=== PATIENT | male | born 1950 | race Caucasian/White ===

== ENCOUNTER 2017-01-04 10:01 | Observation (INO) ==
[2017-01-04] MEDS ORDERED: Furosemide 40 MG/4 ML VIAL IVP ONE (10:45)
[2017-01-04] MEDS ORDERED: Ipratropium/Albuterol Neb 3 ML IH ONE (10:45)
[2017-01-04] MEDS ORDERED: methylPREDNISolone 125 MG/2 ML VIAL IVP ONE (10:45)
--- NOTE | 2017-01-04 10:47 | Emergency Department Note ---
Disposition Clinical Impression: Acute on chronic diastolic (congestive) heart failure Disposition: Still a Patient Condition: Serious Referrals: Livia Quiñonez [Primary Care Provider] - Forms: Work/School Release, ED Satisfaction Letter Time of Disposition: 11:15 SOB HPI - General Chief Complaint: ED General Medical Stated Complaint: HTN, sent by pcp Time Seen by Provider: 01/04/17 10:35 Source: patient Mode of arrival: ambulatory Limitations: no limitations Nursing Notes Reviewed: Yes Vital Signs Reviewed: Yes - History of Present Illness Patient presents to the emergency department with increased difficulty breathing over the last several days states that he is an 18 pound weight gain in the last month. He has a history of congestive heart failure he does have oxygen at home that he uses most of the time however in the last 6 weeks since oxygen levels have improved and so therefore is 90 units to use it as much. He states that previously he had an 80 pound weight gain over a month. This is back in June of this past year. States that at this time he is not having any chest pain but he does have dyspnea with it exertion. He does feel like his ankles are more swollen than they usually are. He also has had some episodes of hypertension. He was seen by his family physician this morning who sent him to the emergency room for further evaluation. Currently is in a sinus rhythm with no chest pain the symptoms have been ongoing progressively worse for the last 4-5 days. He normally was taking 40 mg of Lasix twice a day however on the round about 2 weeks ago they increased his Lasix to 80 mg twice a day and he still had the 18 pound weight gain even after that in addition of the Lasix. Pt Subjective Complaint: shortness of breath, cough Onset (ago): week(s) (2) Severity: moderate Consistency/Duration: gradually worsening Improves with: oxygen, upright position Worsens with: lying flat, exertion Known history of: COPD, congestive heart failure Associated symptoms: Reports: orthopnea, lower extremity pain Treatment prior to arrival: diuretics Cough present: Yes Cough Description: Involuntary Cough Frequency: Intermittent Sputum production: No Sputum Amount: Small Sputum Color: Clear - Related Data Home oxygen amount: 2 liters Home Medications Medication Instructions Recorded Confirmed Albuterol Sulfate [Albuterol 2 puff IH Q6HR PRN 04/18/16 04/18/16 Inhaler] Aspirin Enteric Coated [Aspirin EC] 81 mg PO DAILY 04/18/16 04/18/16 Budesonide/Formoterol 160/4.5 2 puff IH BIDR 04/18/16 04/18/16 [Symbicort 160/4.5] FLUoxetine HCl [Prozac] 40 mg PO DAILY 04/18/16 04/18/16 Famotidine [Pepcid] 20 mg PO BID 04/18/16 04/18/16 Furosemide [Lasix] 40 mg PO BID 04/18/16 04/18/16 GlipiZIDE [Glucotrol] 10 mg PO 0800 04/18/16 04/18/16 Hydralazine HCl 25 mg PO TID 04/18/16 04/18/16 Isosorbide MONOnitrate (24 HR) 60 mg PO DAILY 04/18/16 04/18/16 [Imdur] Losartan/Hydrochlorothiazide 1 each PO DAILY 04/18/16 04/18/16 [Hyzaar 100-25 Tablet] Metformin HCl [Glucophage] 1,000 mg PO BID 04/18/16 04/18/16 Nebivolol HCl [Bystolic] 20 mg PO DAILY 04/18/16 04/18/16 Pantoprazole Sodium [Protonix] 40 mg PO DAILY 04/18/16 04/18/16 Polyethylene Glycol 3350 [MiraLAX] 17 gm PO DAILY PRN 04/18/16 04/18/16 Psyllium Husk [Metamucil] 660 gm PO DAILY 04/18/16 04/18/16 Spironolactone [Aldactone] 50 mg PO DAILY 04/18/16 04/18/16 Previous Rx's Medication Instructions Recorded Docusate [Colace] 100 mg PO BID #30 capsule 06/27/16 Ferrous Sulfate 325 mg PO DAILY@0800 #30 tablet 06/27/16 Allergies Allergy/AdvReac Type Severity Reaction Status Date / Time No Known Allergies Allergy Verified 04/18/16 09:07 All systems ED: reviewed and negative except as stated. Constitutional: Denies: fever, chills, weakness, weight change ENT ED: Reports: congestion Respiratory: Reports: cough, dyspnea Past Medical History - Past Medical History Attestation: Yes The following information was validated with the patient. Source: patient, nursing notes reviewed Medical history: Reports: arthritis, asthma, atrial fibrillation, cardiomyopathy , CHF, COPD, coronary artery disease, diabetes, GERD, hyperlipidemia, hypertension, kidney stones, myocardial infarction, osteoporosis, renal disease , venous stasis, other Surgical history: Reports: coronary bypass (CABG), other (Lithotripsy. Colonoscopy. Colonic polypectomy.) Psychiatric history: Reports: anxiety, depression - Social History Smoking Status: Former smoker Smokeless Tobacco Status: No Alcohol use: Reports: none Drug use: Reports: none Physical Exam - General Limitations: no limitations General appearance: alert - Head Head exam: atraumatic, normocephalic, normal inspection - Eye Eye exam: Present: normal appearance, PERRL, EOMI - ENT ENT exam: normal exam, normal oropharynx, mucous membranes moist - Neck Neck exam: Present: normal inspection, full ROM, trachea midline - Respiratory Respiratory exam: Present: prolonged expiratory phase, other (diminished lung sounds bilaterally ) - Cardiovascular Cardiovascular exam: Present: regular rate, normal rhythm, normal heart sounds - Abdominal Exam Abdominal exam: Present: soft, Non-Tender. Absent: tenderness, distention, guarding, rebound, rigidity - Extremities Exam Extremities exam: Present: pedal edema (which extends to pretibial area, vascular insufficiency discoloration of lower extremities, which is generally present. ) - Expanded Lower Extremity Exam Gait: observed and normal - Back Exam Back exam: Present: normal inspection, full ROM. Absent: tenderness - Neurological Exam Neurological exam: Present: alert, oriented X3 - Psychiatric Psychiatric exam: Present: normal affect, normal mood Course Vital Signs Temperature 98.2 F 01/04/17 10:09 Pulse Rate 67 01/04/17 10:09 Respiratory Rate 18 01/04/17 10:09 Blood Pressure 188/80 01/04/17 10:09 O2 Sat by Pulse Oximetry 96 01/04/17 10:09 Temperature 98.2 F 01/04/17 10:09 Pulse Rate 62 01/04/17 11:01 Respiratory Rate 18 01/04/17 11:22 Blood Pressure 179/74 01/04/17 11:01 O2 Sat by Pulse Oximetry 98 01/04/17 11:22 Oxygen Delivery Oxygen Delivery Room Air Shortness of Breath/Dyspnea - Lab Data Result diagrams: 01/04/17 10:42 01/04/17 10:42 Lab Results 01/04/17 01/04/17 01/04/17 Range/Units 10:42 10:42 10:42 WBC 6.9 (4.3-11.1) K/mcL RBC 3.92 L (4.19-5.50) M/mcL Hgb 11.0 L (12.9-16.9) g/dL Hct 33.8 L (37.5-50.1) % MCV 86.2 (83.0-100.0) fL MCH 28.1 (28.0-33.3) pg MCHC 32.5 (31.6-35.5) g/dL RDW 13.9 (11.5-14.5) % Plt Count 159 (140-400) K/mcL MPV 9.4 (9.4-12.4) fL Immature Gran % 0.6 (0-4) % Seg Neutrophils % 72.9 % Lymphocytes % 15.5 % Monocytes % 7.0 % Eosinophils % 3.6 % Basophils % 0.4 % Neutrophils # 5.0 (1.6-8.9) K/mcL Lymphocytes # 1.1 (0.6-4.6) K/mcL Monocytes # 0.5 (0.0-1.3) K/mcL Eosinophils # 0.3 (0.0-0.6) K/mcL Basophils # 0.0 (0.0-0.2) K/mcL Sodium 140 (136-145) mEq/L Potassium 4.6 H (3.5-4.5) mEq/L Chloride 108 (98-109) mEq/L Carbon Dioxide 23 (19-29) mEq/L BUN 27 H (8-26) mg/dL Creatinine 1.27 H (0.72-1.25) mg/dL Est GFR ( Amer) > 60 (> 60) Est GFR (Non-Af Amer) 57 L (> 60) BUN/Creatinine Ratio 21 (6-26) Glucose 108 H (70-99) mg/dL Calculated Osmolality 296 (280-300) Calcium 9.5 (8.6-10.8) mg/dL Troponin I 0.03 (0-0.03) ng/mL B-Natriuretic Peptide (0-100) pg/mL 01/04/17 Range/Units 10:42 WBC (4.3-11.1) K/mcL RBC (4.19-5.50) M/mcL Hgb (12.9-16.9) g/dL Hct (37.5-50.1) % MCV (83.0-100.0) fL MCH (28.0-33.3) pg MCHC (31.6-35.5) g/dL RDW (11.5-14.5) % Plt Count (140-400) K/mcL MPV (9.4-12.4) fL Immature Gran % (0-4) % Seg Neutrophils % % Lymphocytes % % Monocytes % % Eosinophils % % Basophils % % Neutrophils # (1.6-8.9) K/mcL Lymphocytes # (0.6-4.6) K/mcL Monocytes # (0.0-1.3) K/mcL Eosinophils # (0.0-0.6) K/mcL Basophils # (0.0-0.2) K/mcL Sodium (136-145) mEq/L Potassium (3.5-4.5) mEq/L Chloride (98-109) mEq/L Carbon Dioxide (19-29) mEq/L BUN (8-26) mg/dL Creatinine (0.72-1.25) mg/dL Est GFR ( Amer) (> 60) Est GFR (Non-Af Amer) (> 60) BUN/Creatinine Ratio (6-26) Glucose (70-99) mg/dL Calculated Osmolality (280-300) Calcium (8.6-10.8) mg/dL Troponin I (0-0.03) ng/mL B-Natriuretic Peptide 267 H (0-100) pg/mL S.B.A.R. - S.B.A.R. Background: Presenting Complaint Assessment: Vital Signs, Course and respsone to treatment, Pertinant Lab Results , Outstanding Labs S.B.A.R. Report Given to: MD Aleksandr S.B.A.R. Repor Time: 11:15
[2017-01-04 11:02] LABS: Basophils % 0.4 %; Eosinophils # 0.3 K/mcL (0.0-0.6); Eosinophils % 3.6 %; Hematocrit 33.8 % (37.5-50.1); Immature Granulocytes % 0.6 % (0-4); Lymphocytes # 1.1 K/mcL (0.6-4.6); Lymphocytes % 15.5 %; Mean Corpuscular HGB Conc 32.5 g/dL (31.6-35.5); Mean Corpuscular Hemoglobin 28.1 pg (28.0-33.3); Mean Corpuscular Volume 86.2 fL (83.0-100.0); Mean Platelet Volume 9.4 fL (9.4-12.4); Monocytes # 0.5 K/mcL (0.0-1.3); Platelet Count 159 K/mcL (140-400); Red Blood Count 3.92 M/mcL (4.19-5.50); Red Cell Distribution Width 13.9 % (11.5-14.5); Segmented Neutrophils % 72.9 %
[2017-01-04 11:10] LABS: BUN/Creatinine Ratio 21 (6-26); Blood Urea Nitrogen 27 mg/dL (8-26); Calcium 9.5 mg/dL (8.6-10.8); Carbon Dioxide 23 mEq/L (19-29); Chloride 108 mEq/L (98-109); Glucose 108 mg/dL (70-99); Osmolality,Calculated 296 (280-300); Potassium 4.6 mEq/L (3.5-4.5); Sodium 140 mEq/L (136-145); eGFR For African Americans > 60 (> 60); eGFR For Non-African Americans 57 (> 60)
[2017-01-04 12:22] LABS: Bilirubin,Urine Negative (Negative); Blood,Urine Negative (Negative); Clarity,Urine Clear (Clear); Color,Urine Yellow (Yellow); Glucose,Urine (UA) Normal (Normal); Ketones,Urine Negative (Negative); Leukocyte Esterase,Urine Negative (Negative); Nitrite,Urine Negative (Negative); Protein,Urine Trace mg/dL (Neg-Trace); Specific Gravity,Urine 1.012 (1.010-1.025); Urobilinogen,Urine Normal (Normal)
[2017-01-04 12:26] LABS: Bacteria,Urine None Seen per hpf (None-Few); Hyaline Casts,Urine None Seen per lpf (None-Few); RBC,Urine 0-3 per hpf (0-3); Squamous Epithelial Cell,Urine None Seen per lpf (None-Few); WBC,Urine 0-3 per hpf (0-3)
--- NOTE | 2017-01-04 13:44 | Cardiology Consult Note ---
<Cyrus Ring - Last Filed: 01/04/17 13:39> Date of Encounter: 01/04/17 Time of Encounter: 13:39 Assessment and Plan (1) Acute on chronic diastolic (congestive) heart failure Current Visit: Yes Status: Acute Patient with close to 40 lb weight gain over last 4 months. Out of diurectics for 5 days, was doubling daily dose prior to running out IV diuresis Continue to monitor weight gain and renal function Discussion w patient/family: The assessment and plan as outlined above was discussed with the patient and/or family members who expressed understanding and agreement. All questions were answered. Thank you for involving us in the care of your patient. Please call with any questions. History of Present Illness Consult date: 01/04/17 Requesting physician: James Acosta Consult reason: CHF, Weight Gain Chief complaint: Weight Gain History of present illness: Mr. Watters is a 66 year old male with extensive history of CHF on PO lasix daily arrives to [facility] ED with complaints of weakness and worsening weight gain. Patient states he has been having generalized weakness over the last few weeks without any specific triggers. In addition he states that over the same period of time the patient has had worsening weight gain. His has had to double his daily dose of PO lasix to attempt to compensate. He states that due to this he had run out of his lasix. Patient states that he thinks he was losing a small amount of weight during the doubling of his dose but he is unsure. denies any active dyspnea or worsening pedal edema. Patient noted to have gained roughly 40 lbs since appointment in 09/03. The patient weighed 287 lbs in outpatient cardiology clinic in 09/03 and 316 lbs today. Denies fever or chills, or any other complaints. Past Med Surg Social Fam HX - Past Medical History Attestation: Yes The following information was validated with the patient. Source: patient, old records reviewed Medical history: arthritis, asthma, atrial fibrillation, cardiomyopathy, CHF, COPD, coronary artery disease, diabetes, GERD, hyperlipidemia, hypertension, kidney stones, myocardial infarction, osteoporosis, renal disease, venous stasis , other Psychiatric history: anxiety, depression - Past Surgical History Surgical History: coronary bypass (CABG), other (Lithotripsy. Colonoscopy. Colonic polypectomy.) - Social History Smoking Status: Former smoker Smokeless Tobacco Status: No Alcohol use: none Drug use: none Medications and Allergies Albuterol Sulfate [Albuterol Inhaler] 2 puff IH Q6HR PRN 04/18/16 [History] Aspirin Enteric Coated [Aspirin EC] 81 mg PO DAILY 04/18/16 [History] Budesonide/Formoterol 160/4.5 [Symbicort 160/4.5] 2 puff IH BIDR 04/18/16 [ History] FLUoxetine HCl [Prozac] 40 mg PO DAILY 04/18/16 [History] Famotidine [Pepcid] 20 mg PO BID 04/18/16 [History] Furosemide [Lasix] 40 mg PO BID 04/18/16 [History] GlipiZIDE [Glucotrol] 10 mg PO DAILY 04/18/16 [History] Hydralazine HCl 25 mg PO TID 04/18/16 [History] Isosorbide MONOnitrate (24 HR) [Imdur] 60 mg PO DAILY 04/18/16 [History] Losartan/Hydrochlorothiazide [Hyzaar 100-25 Tablet] 1 tab PO DAILY 04/18/16 [ History] Metformin HCl [Glucophage] 1,000 mg PO BID 04/18/16 [History] Nebivolol HCl [Bystolic] 20 mg PO BID 04/18/16 [History] Pantoprazole Sodium [Protonix] 40 mg PO DAILY 04/18/16 [History] Spironolactone [Aldactone] 50 mg PO DAILY 04/18/16 [History] Ferrous Sulfate 325 mg PO BID 01/04/17 [History] Melatonin/Pyridoxine HCl (B6) [Melatonin 1 mg Tablet] 1 mg PO HS 01/04/17 [ History] Multivit-Min/FA/Lycopen/Lutein [Centrum Silver Men Tablet] 1 tab PO DAILY [History] Allergies No Known Allergies Allergy (Verified 04/18/16 09:07) All Systems Review: A 10-system review of systems was performed and is negative for pertinent findings except as documented above in the HPI. - Constitutional Constitutional: fatigue, weight gain Physical Examination Vital Signs, Last 4 Hours Temp Pulse Resp BP Pulse Ox 01/04/17 12:58 76 22 187/86 95 01/04/17 11:22 18 98 01/04/17 11:01 62 22 179/74 96 01/04/17 10:30 66 22 177/79 97 01/04/17 10:09 98.2 F 67 18 188/80 96 General: Conversant, No Apparent Distress HEENT: Atraumatic, Normocephaly, Mucus Membranes Moist Neck: No JVD, Normal carotid pulses Cardiac: Reg Rate and Rhythm, Normal S1 and S2, No Murmur Lungs: Normal Breath Sounds, No Wheeze, Rales, Rhonchi Neuro: Alert and responsive, No focal deficits noted Abdomen: Soft, Non-Tender Skin: No rashes noted on visualized skin Musculoskeletal: No Chest Wall Tenderness Extremities: No Clubbing, No Cyanosis, Normal Pulses, Other (Trace pedal edema ) Results 01/04/17 10:42 01/04/17 10:42 Lab Results 01/04/17 01/04/17 01/04/17 10:42 10:42 10:42 WBC 6.9 Hgb 11.0 L Hct 33.8 L Plt Count 159 Sodium 140 Potassium 4.6 H Chloride 108 Carbon Dioxide 23 BUN 27 H Creatinine 1.27 H Glucose 108 H Calcium 9.5 Troponin I 0.03 B-Natriuretic Peptide 01/04/17 10:42 WBC Hgb Hct Plt Count Sodium Potassium Chloride Carbon Dioxide BUN Creatinine Glucose Calcium Troponin I B-Natriuretic Peptide 267 H - Imaging and Cardiology Chest Xray: report reviewed, image reviewed Consult Discharge Plan - Plan Referrals: Livia Quiñonez [Primary Care Provider] - <Kimberly Arce - Last Filed: 01/05/17 14:24> Date of Encounter: 01/05/17 Assessment and Plan Discussion w patient/family: The assessment and plan as outlined above was discussed with the patient and/or family members who expressed understanding and agreement. All questions were answered. Thank you for involving us in the care of your patient. Please call with any questions. History of Present Illness History of present illness: Mr. Watters is a 66 year old male All Systems Review: A 10-system review of systems was performed and is negative for pertinent findings except as documented above in the HPI. Physical Examination Vital Signs, Last 4 Hours Temp Pulse Resp BP Pulse Ox 01/05/17 10:59 97.7 F 16 47 166/71 94 L 01/05/17 10:29 16 98 Results 01/04/17 10:42 01/05/17 03:00 Lab Results 01/05/17 01/05/17 01/05/17 03:00 03:00 03:00 Sodium 139 Potassium 4.8 H Chloride 104 Carbon Dioxide 23 BUN 36 H Creatinine 1.60 H Glucose 142 H Calcium 9.3 Magnesium 1.9 Total Bilirubin 0.5 AST 19 ALT 15 Alkaline Phosphatase 62 B-Natriuretic Peptide 740 H - Attending Attestation I examined this patient and my medical decision-making was reviewed with the ACCOUNT INSTALLER/PA/Advanced Practice Nurse/Resident Physician. I agree with the documented findings, disposition and treatment plan. Mr. Watters presented from the outpatient Cardiology clinic out of concern for fluid overload and weight gain. He has known diastolic dysfunction and has not been careful about dietary sodium intake. Per documentation, he has gained a significant amount of weight over the last few months. He denies orthopnea or PND and has only mild LE edema. We recommend IV diuresis, weights for now. We are following his renal function.
--- NOTE | 2017-01-04 14:11 | Emergency Department Note ---
Disposition Clinical Impression: Acute on chronic diastolic (congestive) heart failure CHF exacerbation Qualifiers: Congestive heart failure type: unspecified congestive heart failure type Qualified Code(s): I50.9 - Heart failure, unspecified Disposition: Admitted As Inpatient Condition: Serious Time of Disposition: 14:10 SOB HPI - General Chief Complaint: ED General Medical Stated Complaint: HTN, sent by pcp Time Seen by Provider: 01/04/17 11:08 Source: patient Mode of arrival: ambulatory Limitations: no limitations Nursing Notes Reviewed: Yes Vital Signs Reviewed: Yes - History of Present Illness Pt Subjective Complaint: shortness of breath Severity: moderate Improves with: oxygen, upright position Worsens with: lying flat, exertion Associated symptoms: Reports: orthopnea, lower extremity pain Treatment prior to arrival: diuretics - Related Data Home oxygen amount: 2 liters Home Medications Medication Instructions Recorded Confirmed Albuterol Sulfate [Albuterol 2 puff IH Q6HR PRN 04/18/16 01/04/17 Inhaler] Aspirin Enteric Coated [Aspirin EC] 81 mg PO DAILY 04/18/16 01/04/17 Budesonide/Formoterol 160/4.5 2 puff IH BIDR 04/18/16 01/04/17 [Symbicort 160/4.5] FLUoxetine HCl [Prozac] 40 mg PO DAILY 04/18/16 01/04/17 Famotidine [Pepcid] 20 mg PO BID 04/18/16 01/04/17 Furosemide [Lasix] 40 mg PO BID 04/18/16 01/04/17 GlipiZIDE [Glucotrol] 10 mg PO DAILY 04/18/16 01/04/17 Hydralazine HCl 25 mg PO TID 04/18/16 01/04/17 Isosorbide MONOnitrate (24 HR) 60 mg PO DAILY 04/18/16 01/04/17 [Imdur] Losartan/Hydrochlorothiazide 1 tab PO DAILY 04/18/16 01/04/17 [Hyzaar 100-25 Tablet] Metformin HCl [Glucophage] 1,000 mg PO BID 04/18/16 01/04/17 Nebivolol HCl [Bystolic] 20 mg PO BID 04/18/16 01/04/17 Pantoprazole Sodium [Protonix] 40 mg PO DAILY 04/18/16 01/04/17 Spironolactone [Aldactone] 50 mg PO DAILY 04/18/16 01/04/17 Ferrous Sulfate 325 mg PO BID 01/04/17 01/04/17 Melatonin/Pyridoxine HCl (B6) 1 mg PO HS 01/04/17 01/04/17 [Melatonin 1 mg Tablet] Multivit-Min/FA/Lycopen/Lutein 1 tab PO DAILY 01/04/17 01/04/17 [Centrum Silver Men Tablet] Allergies Allergy/AdvReac Type Severity Reaction Status Date / Time No Known Allergies Allergy Verified 04/18/16 09:07 Constitutional: Denies: fever, chills, weakness, weight change ENT ED: Reports: congestion Respiratory: Reports: cough, dyspnea Past Medical History - Past Medical History Medical history: Reports: arthritis, asthma, atrial fibrillation, cardiomyopathy , CHF, COPD, coronary artery disease, diabetes, GERD, hyperlipidemia, hypertension, kidney stones, myocardial infarction, osteoporosis, renal disease , venous stasis, other Surgical history: Reports: coronary bypass (CABG), other (Lithotripsy. Colonoscopy. Colonic polypectomy.) Psychiatric history: Reports: anxiety, depression - Social History Smoking Status: Former smoker Smokeless Tobacco Status: No Alcohol use: Reports: none Drug use: Reports: none Physical Exam - General Limitations: no limitations General appearance: alert Course Course Narrative: Please see the nurse practitioner note for further documentation, briefly this patient was reevaluated, stable with a O2 sat of 95%, I did consult the programmer Dr. Arce who is on-call, and she states that given the patient's waking of 30 pounds, over the last few months, she would like him to come in for repeat cardiac workup including echocardiogram diuresis, spoke with the hospitalist Dr. Woods she was agreeable for admission the patient is admitted in stable condition, the hospitalist service. - Reevaluation(s) Reevaluation #1: Please see nurse practitioner note physical exam briefly Vitals stable except for blood pressure 174/90. there are fine crackles at the bases, morbidly obese gentleman in no acute distress, +2 pitting edema bilaterally. Vital Signs Temperature 98.2 F 01/04/17 10:09 Pulse Rate 67 01/04/17 10:09 Respiratory Rate 18 01/04/17 10:09 Blood Pressure 188/80 01/04/17 10:09 O2 Sat by Pulse Oximetry 96 01/04/17 10:09 Temperature 98.2 F 01/04/17 10:09 Pulse Rate 68 01/04/17 14:00 Respiratory Rate 22 01/04/17 15:01 Blood Pressure 183/89 01/04/17 15:01 O2 Sat by Pulse Oximetry 95 01/04/17 12:58 Oxygen Delivery Oxygen Delivery Nasal Cannula Shortness of Breath/Dyspnea - Differential Diagnosis Likely: acute exacerbation of chronic obstructive airways disease, congestive heart failure, pulmonary embolism - Medical Records Medical records reviewed: Yes I reviewed the patient's medical records. - Lab Data Lab results reviewed: Yes I reviewed the patient's lab results. Result diagrams: 01/04/17 10:42 01/04/17 10:42 Lab Results 01/04/17 01/04/17 01/04/17 Range/Units 10:42 10:42 10:42 WBC 6.9 (4.3-11.1) K/mcL RBC 3.92 L (4.19-5.50) M/mcL Hgb 11.0 L (12.9-16.9) g/dL Hct 33.8 L (37.5-50.1) % MCV 86.2 (83.0-100.0) fL MCH 28.1 (28.0-33.3) pg MCHC 32.5 (31.6-35.5) g/dL RDW 13.9 (11.5-14.5) % Plt Count 159 (140-400) K/mcL MPV 9.4 (9.4-12.4) fL Immature Gran % 0.6 (0-4) % Seg Neutrophils % 72.9 % Lymphocytes % 15.5 % Monocytes % 7.0 % Eosinophils % 3.6 % Basophils % 0.4 % Neutrophils # 5.0 (1.6-8.9) K/mcL Lymphocytes # 1.1 (0.6-4.6) K/mcL Monocytes # 0.5 (0.0-1.3) K/mcL Eosinophils # 0.3 (0.0-0.6) K/mcL Basophils # 0.0 (0.0-0.2) K/mcL Sodium 140 (136-145) mEq/L Potassium 4.6 H (3.5-4.5) mEq/L Chloride 108 (98-109) mEq/L Carbon Dioxide 23 (19-29) mEq/L BUN 27 H (8-26) mg/dL Creatinine 1.27 H (0.72-1.25) mg/dL Est GFR ( Amer) > 60 (> 60) Est GFR (Non-Af Amer) 57 L (> 60) BUN/Creatinine Ratio 21 (6-26) Glucose 108 H (70-99) mg/dL Calculated Osmolality 296 (280-300) Calcium 9.5 (8.6-10.8) mg/dL Troponin I 0.03 (0-0.03) ng/mL B-Natriuretic Peptide (0-100) pg/mL Urine Color (Yellow) Urine Clarity (Clear) Urine pH (5.0-8.0) pH Units Ur Specific [place] (1.010-1.025) Urine Protein (Neg-Trace) mg/dL Urine Glucose (UA) (Normal) mg/dL Urine Ketones (Negative) mg/dL Urine Blood (Negative) Urine Nitrite (Negative) Urine Bilirubin (Negative) Urine Urobilinogen (Normal) mg/dL Ur Leukocyte Esterase (Negative) Urine Microscopic RBC (0-3) per hpf Urine Microscopic WBC (0-3) per hpf Ur Squamous Epith Cells (None-Few) per lpf Urine Bacteria (None-Few) per hpf Hyaline Casts (None-Few) per lpf Ur Culture Indicated? (NO) 01/04/17 01/04/17 Range/Units 10:42 12:00 WBC (4.3-11.1) K/mcL RBC (4.19-5.50) M/mcL Hgb (12.9-16.9) g/dL Hct (37.5-50.1) % MCV (83.0-100.0) fL MCH (28.0-33.3) pg MCHC (31.6-35.5) g/dL RDW (11.5-14.5) % Plt Count (140-400) K/mcL MPV (9.4-12.4) fL Immature Gran % (0-4) % Seg Neutrophils % % Lymphocytes % % Monocytes % % Eosinophils % % Basophils % % Neutrophils # (1.6-8.9) K/mcL Lymphocytes # (0.6-4.6) K/mcL Monocytes # (0.0-1.3) K/mcL Eosinophils # (0.0-0.6) K/mcL Basophils # (0.0-0.2) K/mcL Sodium (136-145) mEq/L Potassium (3.5-4.5) mEq/L Chloride (98-109) mEq/L Carbon Dioxide (19-29) mEq/L BUN (8-26) mg/dL Creatinine (0.72-1.25) mg/dL Est GFR ( Amer) (> 60) Est GFR (Non-Af Amer) (> 60) BUN/Creatinine Ratio (6-26) Glucose (70-99) mg/dL Calculated Osmolality (280-300) Calcium (8.6-10.8) mg/dL Troponin I (0-0.03) ng/mL B-Natriuretic Peptide 267 H (0-100) pg/mL Urine Color Yellow (Yellow) Urine Clarity Clear (Clear) Urine pH 6.0 (5.0-8.0) pH Units Ur Specific [place] 1.012 (1.010-1.025) Urine Protein Trace (Neg-Trace) mg/dL Urine Glucose (UA) Normal (Normal) mg/dL Urine Ketones Negative (Negative) mg/dL Urine Blood Negative (Negative) Urine Nitrite Negative (Negative) Urine Bilirubin Negative (Negative) Urine Urobilinogen Normal (Normal) mg/dL Ur Leukocyte Esterase Negative (Negative) Urine Microscopic RBC 0-3 (0-3) per hpf Urine Microscopic WBC 0-3 (0-3) per hpf Ur Squamous Epith Cells None Seen (None-Few) per lpf Urine Bacteria None Seen (None-Few) per hpf Hyaline Casts None Seen (None-Few) per lpf Ur Culture Indicated? NO (NO) - Radiology Data Radiology results reviewed: Yes I reviewed the patient's radiology results. Chest X-Ray 01/04/17 10:46 IMPRESSION: Mild cardiomegaly without overt failure or focal infiltrate. D/ / Missael Mccann MD / Missael Mccann MD Interpreting Provider: Missael Mccann MD Attestation Statement - Attestation Attestation: For this encounter, I have reviewed the resident, INDUSTRIAL PLANT CUSTODIAN, or PA documentation, treatment plan, and medical decision making; and I have had face to face time with this patient. Patient received in sign out from PA during the start of my shift. 66-year-old male sent in from programmer's office for continued care and evaluation. She states he went to the office for a routine follow-up however after describing his symptoms he was sent in for further evaluation. Patient states that he has been short of breath with exertion increasingly over the past 2-3 months. He reports 30 pounds of weight gain over the past 2-3 months as well. Patient reports he ran out of his Lasix 4 days ago. Patient denies an acute change in his shortness of breath or weakness within the past week. He describes a progressive decline. Patient had an echo performed within the past year which was suboptimal due to the patient's body habitus. Patient denies chest pain, nausea, vomiting, diaphoresis, diarrhea, abdominal pain. Patient's BMP is within normal limits. Pt has a negative initial troponin. We spoke with cardiology, Dr. Arce, regarding the patient's case and presentation who agreed with plan for admission to the hospital for continued care. Patient admitted to the hospitalist. Patient is comfortable with the plan.
[2017-01-04] MEDS ORDERED: Ondansetron 4 MG/2 ML VIAL IVP PRN (16:20)
[2017-01-04] MEDS ORDERED: Acetaminophen 325 MG TABLET PO PRN (16:20)
[2017-01-04] MEDS ORDERED: Dextrose Gel 15 GM PO PRN ×2 (16:24)
[2017-01-04] MEDS ORDERED: *HR* Dextrose 50 % in Water (Syg) 50 ML SYRINGE IVP PRN (16:24)
[2017-01-04] MEDS ORDERED: Melatonin 3 MG TABLET PO PRN (16:24)
[2017-01-04] MEDS ORDERED: D5% in Water 1,000 ML IV PRN (16:24)
[2017-01-04] MEDS ORDERED: Albuterol 2.5 MG/3 ML NEBULIZER IH PRN (16:25)
[2017-01-04] MEDS: Insulin LISPRO 300 UNITS/3 ML VIAL SQ SCH ×2 (17:32→21:37)
[2017-01-04] MEDS: Furosemide 40 MG/4 ML VIAL IVP SCH ×2 (17:33→21:38)
--- NOTE | 2017-01-04 18:16 | Electrocardiograph Report ---
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1950 Requested By: Kimberly Coates Order Number: [id number] Reading MD: Molly Sow DO Measurements Intervals [place] Rate: 67 P: 99 CO: 281 QRS: -81 QRSD: 166 T: 55 QT: 468 QTc: 483 Interpretive Statements SINUS RHYTHM WITH FIRST DEGREE AV BLOCK RIGHT BUNDLE BRANCH BLOCK [120+ ms QRS DURATION, UPRIGHT V1, 40+ ms S IN I/aVL/V4/V5/V6] POSSIBLE ANTERIOR MYOCARDIAL INFARCTION [30 ms Q WAVE IN V3/V4, OR R < 0.2 mV IN V4], OF INDETERMINATE AGE INFERIOR MYOCARDIAL INFARCTION [40+ ms Q WAVE AND/OR ST/T ABNORMALITY IN II/aVF], OF INDETERMINATE AGE Poor R wave progression Electronically Signed On 01-04-2017 18:15:24 EST by Molly Sow DO
--- NOTE | 2017-01-04 21:04 | Internal Med History&Physical ---
Date of Encounter: 01/04/17 Time of Encounter: 20:40 Assessment and Plan (1) Acute on chronic diastolic (congestive) heart failure Current visit: Yes Status: Acute History of diastolic failure. Last echo was in June 2016 and was inconclusive due to pt's size. At that time he had gained 80# in fluid. Currently he has gained 30# and is experiencing AREVALO. He denies chest pain. Troponin is negative, BNP 267 and chest xray shows mild cardiomegaly without overt failure or focal infiltrate. Pt is obviously in fluid overload with peripheral and facial edema, despite double doses of his po lasix at home. Cardiology has already consulted on pt. Lasix 40mg IV bid Metoprolol 50mg po bid Cardiac diet Echo Cartridge Gauger VS Monitor labs in a.m. (2) Diastolic dysfunction Current visit: No Status: Chronic History of diastolic dysfunction. Plan as above (3) Hypertension Current visit: Yes Status: Acute Pt reports having HTN for "all of my life". BP has been mildly elevated here today. Monitor VS Continuous Telemetry Metoprolol 50mg po bid Lasix 40mg IV bid Qualifiers: Hypertension type: essential hypertension Qualified Code(s): I10 - Essential (primary) hypertension (4) JOSE (acute kidney injury) Current visit: No Status: Acute Avoid nephrotoxins and NSAIDs Monitor labs (5) Acute hyperkalemia Current visit: Yes Status: Acute Potassium 4.6. Will continue to monitor as diuresis takes place. (6) Cirrhosis Current visit: Yes Status: Acute Pt states that he was a heavy drinker from the time he was 16 until he was about 49. States that he drank every day. Hepatic panel ordered for morning. Will continue to monitor. Qualifiers: Hepatic cirrhosis type: alcoholic cirrhosis Qualified Code(s): K70.30 - Alcoholic cirrhosis of liver without ascites Internal Medicine - H&P: HPI Admitted From: Home Plans for Post Hospital Care: Home History of present illness: Mr. Watters is a 66 year old male with diastolic CHF, sleep apnea, COPD, cardiomyopathy, DM, CABG, hypothyroid, BPH, hyperlipidemia, [place], and cirrhosis. He presented to the ER today for a 2-3 month history of SOB with exertion and 30 # weight gain in about the same time frame. He c/o weakness and feels like his voice is weak. In June of 2016, he had the same symptoms, only it was an 80# weight gain and loss, and he says he has never regained his strength from that. Pt ran out of his lasix about 5 days ago since his had been giving him double doses in an effort to stop the edema and weight gain. Pt denies chest pain. Echo done in June 2016 was inconclusive due to pt's size. LVEF was not determined, but L ventricle was mild to moderately dilated. Dr. Arce would like to repeat. Today's chest xray shows mild cardiomegaly without overt failure or focal infiltrate. Past Med Surg Social Fam HX - Past Medical History Medical history: arthritis, asthma, atrial fibrillation, cardiomyopathy, CHF, COPD, coronary artery disease, diabetes, GERD, hyperlipidemia, hypertension, kidney stones, myocardial infarction, osteoporosis, renal disease, venous stasis , other Psychiatric history: anxiety, depression - Past Surgical History Surgical History: coronary bypass (CABG), other (Lithotripsy. Colonoscopy. Colonic polypectomy.) - Social History Smoking Status: Former smoker Smokeless Tobacco Status: No Alcohol use: none Drug use: none - Family History Father Living Status: Hx Family Cancer: Yes Mother Living Status: Hx Family Cancer: Yes Internal Medicine - H&P: Meds Albuterol Sulfate [Albuterol Inhaler] 2 puff IH Q6HR PRN 04/18/16 [History] Aspirin Enteric Coated [Aspirin EC] 81 mg PO DAILY 04/18/16 [History] Budesonide/Formoterol 160/4.5 [Symbicort 160/4.5] 2 puff IH BIDR 04/18/16 [ History] FLUoxetine HCl [Prozac] 40 mg PO DAILY 04/18/16 [History] Famotidine [Pepcid] 20 mg PO BID 04/18/16 [History] Furosemide [Lasix] 40 mg PO BID 04/18/16 [History] GlipiZIDE [Glucotrol] 10 mg PO DAILY 04/18/16 [History] Hydralazine HCl 25 mg PO TID 04/18/16 [History] Isosorbide MONOnitrate (24 HR) [Imdur] 60 mg PO DAILY 04/18/16 [History] Losartan/Hydrochlorothiazide [Hyzaar 100-25 Tablet] 1 tab PO DAILY 04/18/16 [ History] Metformin HCl [Glucophage] 1,000 mg PO BID 04/18/16 [History] Nebivolol HCl [Bystolic] 20 mg PO BID 04/18/16 [History] Pantoprazole Sodium [Protonix] 40 mg PO DAILY 04/18/16 [History] Spironolactone [Aldactone] 50 mg PO DAILY 04/18/16 [History] Ferrous Sulfate 325 mg PO BID 01/04/17 [History] Melatonin/Pyridoxine HCl (B6) [Melatonin 1 mg Tablet] 1 mg PO HS 01/04/17 [ History] Multivit-Min/FA/Lycopen/Lutein [Centrum Silver Men Tablet] 1 tab PO DAILY [History] Allergies No Known Allergies Allergy (Verified 04/18/16 09:07) All Systems PM: A 10-system review of systems was performed and is negative for pertinent findings except as documented above in the HPI. - Constitutional Constitutional: weakness, no excessive sweating, no fever(s), no falls - EENT Eyes: loss of vision Additional comments: Pt is blind in L eye. - Cardiovascular Cardiovascular ROS IM: dyspnea, dyspnea on exertion, edema, no irregular heart rhythm, no palpitations - Respiratory Respiratory: dyspnea, no wheezing, no pain on inspiration, no chest congestion, no excessive phlegm production, no pain with cough - Gastrointestinal Gastrointestinal: no constipation, no diarrhea, no nausea, no vomiting - Integumentary Integumentary IM: non-healing lesions Additional comments: Pt has darkened areas on ble from prior extensive edema. - Neurological Neurological ROS: no confusion, no dizziness, no frequent falls - Constitutional Vitals: Temp Pulse Resp BP Pulse Ox 98.2 F 78 19 177/72 93 L 01/04/17 18:39 01/04/17 18:39 01/04/17 18:39 01/04/17 18:39 01/04/17 18:39 General appearance: Present: cooperative, A&O X 3, pleasant, answers questions appropriately - Eye Pupils: Present: fixed Additional comments: L iris/pupil cloudy. Pt has no sight in this eye. - ENT ENT exam: Present: mucous membranes moist - Neck Neck exam general surgery: Absent: lymphadenopathy, normal inspection, tenderness - Respiratory Respiratory exam: Present: CTAB. Absent: chest wall tenderness, decreased breath sounds, rales, respiratory distress, wheezes - Cardiovascular Cardiovascular exam: Present: RRR, +S1, +S2. Absent: tachycardia - GI/Abdominal GI/Abdominal exam: Present: distended, firm. Absent: tenderness - Extremities Exam Extremities exam: Present: pedal edema, warm. Absent: calf tenderness, full ROM , normal capillary refill, tenderness Additional comments: Despite edema, pt has palpable pulses to ble. - Neurological Exam Neurological exam: Present: alert, oriented X3. Absent: facial droop, speech deficit Internal Med - H&P Results - Labs CBC & Chem 7: 01/04/17 10:42 01/04/17 10:42 - EKG Data EKG shows normal: sinus rhythm Rate: normal - EKG Data When compared to previous EKG: there is no significant change EKG comments: 01/04/17 21:12 Sinus rhythm with 1st deg AV block Rate 67 AR in 281 QRS 166 QT/Qtc 468/483
[2017-01-04] MEDS: Budesonide/Formoterol 160/4.5 MDI IH SCH (23:05)
[2017-01-05 04:05] LABS: Albumin 3.5 g/dL (3.5-5.0); Bilirubin,Direct 0.2 mg/dL (0.0-0.5); Bilirubin,Indirect 0.3 mg/dL (0.0-1.2); Bilirubin,Total 0.5 mg/dL (0.2-1.2); Globulin 3.6 g/dL (2.4-3.5); Total Protein 7.1 g/dL (6.0-8.3)
[2017-01-05 04:07] LABS: Calcium 9.3 mg/dL (8.6-10.8); Chol/HDL Ratio 3.9 (0-4.9); Magnesium 1.9 mg/dL (1.6-2.6); Phosphorous 4.1 mg/dL (2.3-4.7); Potassium 4.8 mEq/L (3.5-4.5)
[2017-01-05] MEDS: Isosorbide MONOnitrate (24 HR) 60 MG TAB.ER.24H PO SCH (09:34)
[2017-01-05] MEDS: Bumetanide 1 MG/4 ML VIAL IVP SCH ×2 (09:34→18:10)
[2017-01-05] MEDS: Aspirin Enteric Coated 81 MG Tablet PO SCH (09:34)
[2017-01-05] MEDS: Insulin LISPRO 300 UNITS/3 ML VIAL SQ SCH ×4 (09:36→20:56)
--- NOTE | 2017-01-05 10:10 | Internal Med Progress Note ---
Date of Encounter: 01/05/17 Time of Encounter: 10:07 - Assessment and plan (1) Acute on chronic diastolic (congestive) heart failure Current Visit: Yes Status: Acute Assessment and plan: Acute on chronic diastolic CHF exacerbation Cardiology recommended to switch Lasix IV to Bumex IV Strict I's and O's, daily weight, repeat echocardiogram as the prior one from last year was indeterminate (2) Atrial fibrillation Current Visit: Yes Status: Acute Assessment and plan: Continue metoprolol, continue aspirin Consider anticoagulation as outpatient Qualifiers: Atrial fibrillation type: paroxysmal Qualified Code(s): I48.0 - Paroxysmal atrial fibrillation (3) Cirrhosis Current Visit: Yes Status: Acute Qualifiers: Hepatic cirrhosis type: alcoholic cirrhosis Qualified Code(s): K70.30 - Alcoholic cirrhosis of liver without ascites (4) Hypertension Current Visit: Yes Status: Acute Assessment and plan: Hold losartan and hydrochlorothiazide due to acute renal failure use hydralazine IV as needed Qualifiers: Hypertension type: essential hypertension Qualified Code(s): I10 - Essential (primary) hypertension (5) Acute kidney injury superimposed on chronic kidney disease Current Visit: No Status: Acute Assessment and plan: CKD 4 Monitor creatinine Hold losartan and hydrochlorothiazide (6) BPH (benign prostatic hyperplasia) Current Visit: No Status: Acute Qualifiers: Prostatic enlargement morphology: unspecified morphology Lower urinary tract symptom presence: presence of symptoms unspecified Qualified Code(s): N40.0 - Benign prostatic hyperplasia without lower urinary tract symptoms (7) Controlled type 2 diabetes mellitus Current Visit: No Status: Acute Assessment and plan: Continue insulin sliding scale Qualifiers: Diabetes mellitus complication status: without complication Diabetes mellitus mcfp insulin use: without mcfp use Qualified Code(s): E11.9 - Type 2 diabetes mellitus without complications (8) Morbid obesity with BMI of 40.0-44.9, adult Current Visit: No Status: Acute (9) CAD in [place] artery Current Visit: No Status: Chronic Assessment and plan: Continue aspirin and metoprolol Takes nibivolol at home (10) Hx of CABG Current Visit: No Status: Chronic - Time Spent With Patient Greater than 35 minutes - Subjective Interval history: Feeling less short of breath, has been gaining a lot of weight for the past few weeks. Denies any chest pain, no abdominal pain, no fevers, no dysuria, no diarrhea - Constitutional Vitals: Temp Pulse Resp BP Pulse Ox 97.8 F 54 16 166/65 98 01/05/17 07:10 01/05/17 07:10 01/05/17 07:10 01/05/17 07:10 01/05/17 07:10 General appearance: Present: cooperative, A&O X 3, morbidly obese, pleasant, answers questions appropriately - Head Head exam: Present: atraumatic, normocephalic - Eye Eye exam: Present: PERRL, conjuntiva pink, sclera anicteric Pupils: Present: PERRL - Neck Neck exam general surgery: Present: supple, trachea midline. Absent: lymphadenopathy - Respiratory Respiratory exam: Present: CTAB, rales (Bibasilar crackles). Absent: accessory muscle use, rhonchi, wheezes - Cardiovascular Cardiovascular exam: Present: RRR, +S1, +S2. Absent: diastolic murmur, gallop, rubs, systolic murmur - GI/Abdominal GI/Abdominal exam: Present: distended, normal bowel sounds, soft, no peritoneal signs. Absent: tenderness - Extremities Exam Extremities exam: Present: pedal edema (+1 pitting edema in both lower extremities), warm, radial pulses palpable and symetrical. Absent: calf tenderness, cyanotic - Neurological Exam Neurological exam: Present: CN II-XII intact, oriented X3, no focal deficits. Absent: pronater drift, facial droop, speech deficit - Skin Skin exam: Present: dry, intact Internal Medicine: Result - Labs CBC & Chem 7: 01/04/17 10:42 01/05/17 03:00 Labs: BMP 01/05/17 03:00 Sodium 139 Potassium 4.8 H Chloride 104 Carbon Dioxide 23 BUN 36 H Creatinine 1.60 H Glucose 142 H Calcium 9.3 Liver Function 01/05/17 Range/Units 03:00 Total Bilirubin 0.5 (0.2-1.2) mg/dL Direct Bilirubin 0.2 (0.0-0.5) mg/dL AST 19 (5-34) Units/L ALT 15 (0-55) Units/L Alkaline Phosphatase 62 (38-126) Units/L Albumin 3.5 (3.5-5.0) g/dL Consult Discharge Plan - Plan Referrals: Livia Quiñonez [Primary Care Provider] -
--- NOTE | 2017-01-05 10:20 | Cardiology Progress Note ---
Date of Encounter: 01/05/17 Time of Encounter: 08:00 Assessment and Plan (1) Acute on chronic diastolic (congestive) heart failure Current Visit: Yes Status: Acute Acute on chronic dCHF likely secondary to dietary and fluid indiscretion. Reports diet high in sodium with liberal fluid intake. CHF education re-emphasized including Na/fluid restriction diet. Blood pressure improved. Change Lasix to Bumex, Scr noted to worsen after 1 dose of lasix. No significant volume overload on exam, however he has gained nearly 50 lbs in the past 3-4 months. Denies orthopnea/PND. Strict I&O, daily weights, and fluid restriction diet. Will continue to follow. (2) Hypertension Current Visit: Yes Status: Acute Controlled improved, continue to diuresis. Qualifiers: Hypertension type: essential hypertension Qualified Code(s): I10 - Essential (primary) hypertension (3) JOSE (acute kidney injury) Current Visit: No Status: Acute Avoid nephrotoxins and NSAIDs Continue to monitor. If SCr continues to worsen, stop Bumex. (4) CHRIS on CPAP Current Visit: Yes Status: Acute Reports compliance with CPAP (5) Hx of CABG Current Visit: Yes Status: Chronic Hx of CAD s/p CABG. Denies chest pain or discomfort. No ishchemic ECG changes. Troponin negative. Asa, betablocker. Has not been on statin in the past due to cirrhosis Discussion w patient/family: The assessment and plan as outlined above was discussed with the patient and/or family members who expressed understanding and agreement. All questions were answered. Thank you for involving us in the care of your patient. Please call with any questions. The patient will be discussed and reviewed with Dr. Arce; changes to be made accordingly. Subjective Principal diagnosis: diastolic CHF, accelerated HTN Interval history: Seen and examined earlier this AM. Admitted to [facility] after advised at outpatient Cardiology office due to near 50+ lbs weight gain in the past 3-4 months. Reports still has 10+ pounds of water. He attributes exacerbation to noncompliance with fluid and Na restriction. Denies chest pain or discomfort overnight. Plan discussed with primary team. Objective Vital Signs, Last 4 Hours Temp Pulse Resp BP Pulse Ox 01/05/17 07:10 97.8 F 54 16 166/65 98 General: Conversant, Other (obese) Cardiac: Reg Rate and Rhythm, Normal S1 and S2 Lungs: Normal Breath Sounds Neuro: Alert and responsive Abdomen: Other (large, distended) Skin: No rashes noted on visualized skin Musculoskeletal: No Chest Wall Tenderness Extremities: Other (BLE edema +2-3 to hips. ) Results 01/04/17 10:42 01/05/17 03:00 Lab Results 01/05/17 01/05/17 01/05/17 03:00 03:00 03:00 Sodium 139 Potassium 4.8 H Chloride 104 Carbon Dioxide 23 BUN 36 H Creatinine 1.60 H Glucose 142 H Calcium 9.3 Magnesium 1.9 Total Bilirubin 0.5 AST 19 ALT 15 Alkaline Phosphatase 62 B-Natriuretic Peptide 740 H Active Medications Acetaminophen (Tylenol) 650 mg PO Q6HR PRN PRN Reason: Mild Pain (1-3) Stop: 07/06/17 16:21 Albuterol Sulfate (Proventil Neb) 2.5 mg IH [id number] PRN; Protocol PRN Reason: Shortness Of Breath/Wheezing Stop: 07/06/17 16:26 Aspirin (Aspirin Ec) 81 mg PO DAILY [facility] Stop: 07/07/17 09:01 Last Admin: 01/05/17 09:34 Dose: 81 mg Budesonide/Formoterol Fumarate (Symbicort) 2 puff IH BIDR [place] PRN Reason: Protocol Stop: 07/06/17 22:01 Last Admin: 01/04/17 23:05 Dose: 2 puff Bumetanide (Bumex) 1 mg IVP BIDDIURETIC [place] Stop: 07/07/17 08:31 Last Admin: 01/05/17 09:34 Dose: 1 mg Dextrose/Water (Dextrose 50% (Syg)) 25 ml IVP AD PRN PRN Reason: Hypoglycemia Stop: 07/06/17 16:25 Ferrous Sulfate (Ferrous Sulfate) 325 mg PO BID [place] Stop: 07/06/17 21:01 Last Admin: 01/05/17 09:33 Dose: 325 mg Hydralazine HCl (Hydralazine) 20 mg IVP Q6HR PRN PRN Reason: Hypertension Stop: 07/07/17 10:13 Dextrose (Dextrose 5%) 1,000 mls @ 100 mls/hr IV CONT PRN PRN Reason: HYPOGLYCEMIA Stop: 07/06/17 16:25 Insulin Human Lispro (Humalog) 0 units SQ TIDAC [place] PRN Reason: Protocol Stop: 07/06/17 16:31 Last Admin: 01/05/17 09:36 Dose: 2 units Insulin Human Lispro (Humalog) 0 units SQ HS [place] PRN Reason: Protocol Stop: 07/06/17 21:01 Last Admin: 01/04/17 21:37 Dose: 5 units Isosorbide Mononitrate (Imdur) 60 mg PO DAILY [place] Stop: 07/07/17 09:01 Last Admin: 01/05/17 09:34 Dose: 60 mg Melatonin (Melatonin) 3 mg PO HS PRN PRN Reason: Insomnia Stop: 07/06/17 16:25 Last Admin: 01/04/17 21:37 Dose: 3 mg Metoprolol Tartrate (Lopressor) 50 mg PO BID [facility] Stop: 07/06/17 21:01 Last Admin: 01/05/17 09:34 Dose: 50 mg Omeprazole (Prilosec) 20 mg PO DAILY@0630 [facility] Intake & Output 01/02/17 01/03/17 01/04/17 01/05/17 23:59 23:59 23:59 23:59 Intake Total 540 / 540 240 / 240 Output Total 1125 / 1125 1130 / 1130 Balance -585 / -585 -890 / -890 Weight 146.057 kg 138.527 kg - Imaging and Cardiology Echo: report reviewed Other Results: Telemetry reviewed. - EKG Interpretation EKG results cardiology: personally reviewed Consult Discharge Plan - Plan Referrals: Livia Quiñonez [Primary Care Provider] -
[2017-01-05] MEDS: Budesonide/Formoterol 160/4.5 MDI IH SCH ×2 (10:28→20:55)
--- NOTE | 2017-01-05 16:38 | ECHO - Doppler Report ---
Echocardiogram Name: Edward Watters Date of Study: 01/05/2017 Date: 1950 Ht: 71.0 in Medical Record#: [id number] Age: 66 Wt: 322.0 lb Gender: Male BSA: 2.58 Order #: [id number] Location: [facility] Room #: 3B22 Reading Physician: Kimberly Arce DO Human Resources Clerk: Rose Molina RVT, [facility] Ordering Physician: Meredith Woodward CNP Primary Physician: Livia Quiñonez CNP Indications: Congestive heart failure Impressions: LVEF 60%. Not all myocardial segments were well visualized. Normal left ventricular size and systolic function. There is evidence of moderate diastolic dysfunction of the left ventricle. Dilated RV with normal function. Mild aortic regurgitation. Mild mitral regurgitation. No pulmonary hypertension by TR gradient which may be underestimated. IVC was not well visualized. Left Ventricular Wall Motion: Rest Echo Findings The mid anterior septal, mid inferior lateral, basal anterior septal and basal inferior lateral amado were not visualized. All other wall segments showed normal motion. Findings: Study Quality * Technically adequate exam. ECG Findings * Sinus bradycardia. Left Ventricle * LVEF 60%. * Normal LV chamber size, wall thickness and function. * Moderate left ventricular diastolic dysfunction. Aortic Valve * Aortic valve not well visualized. * No aortic stenosis. * Mild aortic regurgitation. Mitral Valve * No mitral stenosis. * Mild mitral regurgitation. * Normal mitral valve structure. Tricuspid Valve * Tricuspid valve not well visualized. * Trace tricuspid regurgitation. Pulmonic Valve * Pulmonic valve is not well visualized. * No pulmonic stenosis. * No pulmonic regurgitation. Pulmonary Artery * Pulmonary artery not well visualized. Right Atrium * Normal right atrial size. Right Ventricle * Dilated RV with normal function. Left Atrium * Mildly dilated left atrium. Interatrial Septum * Interatrial septum not well evaluated. IVC * The IVC is not well evaluated. Pericardium * There is no pericardial effusion present. Aorta * Not well visualized. History Hypertension Diabetes Hypercholesteremia History of CAD/PTCA Congestive Heart Failure 06-19-2016 a Previous Echo was performed. Measurements: BP: 159/ 70 2D Normal Values IVSd: 1.20 cm 0.6 - 1.0 cm LVIDd: 4.50 cm 3.7 - 5.6 cm LVPWd: 1.20 cm 0.6 - 1.1 cm LVIDs: 3.40 cm 1.5 - 3.6 cm AO: 2.50 cm < 4.0 cm LA: 5.60 cm 2.0 - 4.0cm %FS: 24.40 cm >25 % LA volume: 88 Mitral Valve Peak Velocity 1.82 m/sec Mean Velocity:.80 m/sec Peak Grad:13.00 mmHg Mean Grad:3.00 mmHg Pressure Time:73.00 msec Dec Time:257.00 msec Valve Area:3.01 cm2 Peak E:1.36 m/sec Peak A:.80 m/sec E/A Ratio:1.7 Peak E' Lat Mario:5.17 cm/s Peak E' Med Mario:6.82 cm/s E/E' Lat Ratio:26.3 E/E' Med Ratio:19.9 Aortic Valve AI pressure Half-time: 529.00 msec Tricuspid Valve TV Regurg Peak Grad: 29.00mmHg TV Regurg Peak Mario: 2.71m/sec Updated by Kimberly Arce on 01/05/2017 4:31:39 PM electronically signed on 01/05/2017 4:34:00 PM with status of Final Wall Motion Lewis: 1=Normal, 2=Hypokinesis, 3=Akinesis, 4=Dyskinesis, 5=Aneurysmal, 6=Hyperkinetic, X=Not Visualized (Blank)=Missing
[2017-01-06 07:12] VITALS: BP 157/68
[2017-01-06 07:38] LABS: BUN/Creatinine Ratio 31 (6-26); Blood Urea Nitrogen 42 mg/dL (8-26); Carbon Dioxide 27 mEq/L (19-29); Chloride 104 mEq/L (98-109); Glucose 121 mg/dL (70-99); Osmolality,Calculated 302 (280-300); Potassium 4.3 mEq/L (3.5-4.5); Sodium 140 mEq/L (136-145); eGFR For African Americans > 60 (> 60); eGFR For Non-African Americans 53 (> 60)
[2017-01-06] MEDS: Budesonide/Formoterol 160/4.5 MDI IH SCH (07:53)
[2017-01-06] MEDS: Aspirin Enteric Coated 81 MG Tablet PO SCH (08:45)
[2017-01-06] MEDS: Bumetanide 1 MG/4 ML VIAL IVP SCH (08:45)
[2017-01-06] MEDS: Isosorbide MONOnitrate (24 HR) 60 MG TAB.ER.24H PO SCH (08:45)
[2017-01-06] MEDS: Insulin LISPRO 300 UNITS/3 ML VIAL SQ SCH (08:45)
--- NOTE | 2017-01-06 09:33 | Discharge Summary ---
Date of Encounter: 01/06/17 Time of Encounter: 09:30 - Discharge Diagnosis (1) Acute on chronic diastolic (congestive) heart failure Priority: Primary Status: Acute Comments: Acute on chronic diastolic CHF exacerbation (2) Atrial fibrillation Priority: Secondary Status: Acute Qualifiers: Atrial fibrillation type: paroxysmal Qualified Code(s): I48.0 - Paroxysmal atrial fibrillation (3) Cirrhosis Priority: Secondary Status: Acute Qualifiers: Hepatic cirrhosis type: alcoholic cirrhosis Qualified Code(s): K70.30 - Alcoholic cirrhosis of liver without ascites (4) Hypertension Priority: Secondary Status: Acute Qualifiers: Hypertension type: essential hypertension Qualified Code(s): I10 - Essential (primary) hypertension (5) Acute kidney injury superimposed on chronic kidney disease Priority: Secondary Status: Acute (6) BPH (benign prostatic hyperplasia) Priority: Secondary Status: Acute Qualifiers: Prostatic enlargement morphology: unspecified morphology Lower urinary tract symptom presence: presence of symptoms unspecified Qualified Code(s): N40.0 - Benign prostatic hyperplasia without lower urinary tract symptoms (7) Controlled type 2 diabetes mellitus Priority: Secondary Status: Acute Qualifiers: Diabetes mellitus complication status: without complication Diabetes mellitus assisted insulin use: without supervisor long goods use Qualified Code(s): E11.9 - Type 2 diabetes mellitus without complications (8) Morbid obesity with BMI of 40.0-44.9, adult Priority: Secondary Status: Acute (9) CAD in [place] artery Priority: Secondary Status: Chronic (10) Hx of CABG Priority: Secondary Status: Chronic - Discharge Medications Prescriptions: Bumetanide [Bumex] 1 mg PO BID #60 tablet Home Medications: Albuterol Sulfate [Albuterol Inhaler] 2 puff IH Q6HR PRN 04/18/16 [History] Aspirin Enteric Coated [Aspirin EC] 81 mg PO DAILY 04/18/16 [History] Budesonide/Formoterol 160/4.5 [Symbicort 160/4.5] 2 puff IH BIDR 04/18/16 [ History] FLUoxetine HCl [Prozac] 40 mg PO DAILY 04/18/16 [History] Famotidine [Pepcid] 20 mg PO BID 04/18/16 [History] GlipiZIDE [Glucotrol] 10 mg PO DAILY 04/18/16 [History] Hydralazine HCl 25 mg PO TID 04/18/16 [History] Isosorbide MONOnitrate (24 HR) [Imdur] 60 mg PO DAILY 04/18/16 [History] Losartan/Hydrochlorothiazide [Hyzaar 100-25 Tablet] 1 tab PO DAILY 04/18/16 [ History] Metformin HCl [Glucophage] 1,000 mg PO BID 04/18/16 [History] Nebivolol HCl [Bystolic] 20 mg PO BID 04/18/16 [History] Pantoprazole Sodium [Protonix] 40 mg PO DAILY 04/18/16 [History] Spironolactone [Aldactone] 50 mg PO DAILY 04/18/16 [History] Ferrous Sulfate 325 mg PO BID 01/04/17 [History] Melatonin/Pyridoxine HCl (B6) [Melatonin 1 mg Tablet] 1 mg PO HS 01/04/17 [ History] Multivit-Min/FA/Lycopen/Lutein [Centrum Silver Men Tablet] 1 tab PO DAILY [History] Bumetanide [Bumex] 1 mg PO BID #60 tablet 01/06/17 [Rx] Polyethylene Glycol 3350 [MiraLAX] 17 gm PO DAILY PRN #0 powd.pack 01/06/17 [Rx] Allergies/Adverse Reactions: Allergies No Known Allergies Allergy (Verified 04/18/16 09:07) Procedures/tests Complete & Pending: Procedures Performed prior 72 hours Category Date Time Status ECG 12 lead ECG [ECG] AM 0600 Y 01/05/17 06:00 Completed EV echocardiogram Routine Y 01/05/17 11:00 Completed Date of admission: 01/04/17 14:08 Primary care physician: Livia Quiñonez - Patient Status Disposition: Home, Self-Care Condition: Good Overall status at discharge: patient is progressing back to baseline - Discharge Instructions Follow Up With: Livia Quiñonez [Primary Care Provider] - Additional Instructions: Follow with primary care physician within the next 7 days. Stop Lasix and start Bumex 1 mg twice a day. Follow with cardiology within the next 2-3 weeks. Decrease fluid intake - Diet and Activity Activity: increase activity as tolerated Diet: diabetic diet Hospital course: Mr. Watters is a 66 year old male with a past medical history of atrial fibrillation not on anticoagulation, cardiomyopathy, diastolic CHF, COPD not oxygen dependent, coronary artery disease, diabetes, GERD, hyperlipidemia, hypertension, kidney stones, myocardial infarction, osteoporosis, renal disease , venous stasis, diabetes type 2 not insulin-dependent. He presented to the ER for a 2-3 month history of SOB with exertion and 30 pounds of weight gain in about the same time frame. He c/o weakness and feels like his voice is weak. In June of 2016, he had the same symptoms, only it was an 80 pounds of weight gain and loss, and he says he has never regained his strength from that. Pt ran out of his lasix about 5 days prior to his admission since his had been giving him double doses in an effort to stop the edema and weight gain. Echo done in June 2016 was inconclusive due to pt's size. LVEF was not determined, but L ventricle was mild to moderately dilated. Dr. Arce would like to repeat, chest xray showed mild cardiomegaly without overt failure or focal infiltrate. The patient was evaluated by the cardiology service and his Lasix IV was switched to Bumex 1 mg twice a day IV. The patient's creatinine increased to 1.6 and today is decreased down to 1.35. The new echocardiogram shows an ejection fraction of 60% with moderate diastolic dysfunction. He feels better although his legs are still swollen. He was given the option to stay an additional day but he prefers to be discharged home and continue his diuresis at home. He says he has been drinking a lot of fluids lately and will try to control himself at home. - Time Spent with Patient Total time spent providing and/or coordinating discharge services: Greater than 30 minutes (40 min) - Constitutional Vitals: Temp Pulse Resp BP Pulse Ox 97.7 F 51 16 157/68 97 01/06/17 07:06 01/06/17 07:06 01/06/17 07:06 01/06/17 07:06 01/06/17 07:06 General appearance: Present: cooperative, A&O X 3, morbidly obese, pleasant, answers questions appropriately - Head Head exam: Present: atraumatic, normocephalic - Eye Eye exam: Present: PERRL, conjuntiva pink, sclera anicteric Pupils: Present: PERRL - Neck Neck exam general surgery: Present: supple, trachea midline. Absent: lymphadenopathy - Respiratory Respiratory exam: Present: decreased breath sounds, CTAB, rales (Fine bibasilar crackles). Absent: accessory muscle use, rhonchi, wheezes - Cardiovascular Cardiovascular exam: Present: RRR, +S1, +S2. Absent: diastolic murmur, gallop, rubs, systolic murmur - GI/Abdominal GI/Abdominal exam: Present: distended (Morbid obesity, possible ascites), normal bowel sounds, soft, no peritoneal signs. Absent: tenderness - Extremities Exam Extremities exam: Present: pedal edema (+2 pitting edema in both lower extremities with multiple chronic changes from venous testes), warm, radial pulses palpable and symetrical. Absent: calf tenderness, cyanotic - Neurological Exam Neurological exam: Present: CN II-XII intact, oriented X3, no focal deficits. Absent: pronater drift, facial droop, speech deficit - Skin Skin exam: Present: dry, intact
--- NOTE | 2017-01-06 10:51 | Cardiology Progress Note ---
Date of Encounter: 01/06/17 Time of Encounter: 10:00 Assessment and Plan (1) Acute on chronic diastolic (congestive) heart failure Status: Acute Acute on chronic dCHF likely secondary to dietary and fluid indiscretion. Reports diet high in sodium with liberal fluid intake. CHF education re-emphasized including Na/fluid restriction diet. Blood pressure improved. TTE: EF 60%, moderate LVDD, mild AR/MR. Scr noted to worsen after 1 dose of lasix. Changed to Bumex 1mg IV BID. No significant volume overload on exam, however he has gained nearly 50 lbs in the past 3-4 months. Denies orthopnea/PND. Recommend stopping home lasix and changing to Bumex 1 mg po BID 24 I&O: -2750 mL. cumulative -3735 mL; weight down 7kg per I&O. Reports significant improvement today, has already been discharged by hospitalist. Emphasized on Na/Fluid restrition diet emphasized to patient and . Follow-up with [facility] as scheduled on Saturday. (2) Hypertension Status: Acute Controlled improved, continue to diuresis. Qualifiers: Hypertension type: essential hypertension Qualified Code(s): I10 - Essential (primary) hypertension (3) JOSE (acute kidney injury) Status: Acute Avoid nephrotoxins and NSAIDs Scr improved today, now at baseline (4) CHRIS on CPAP Status: Acute Reports compliance with CPAP (5) Hx of CABG Status: Chronic Hx of CAD s/p CABG. Denies chest pain or discomfort. No ishchemic ECG changes. Troponin negative. Asa, betablocker. Has not been on statin in the past due to cirrhosis Discussion w patient/family: The assessment and plan as outlined above was discussed with the patient and/or family members who expressed understanding and agreement. All questions were answered. Thank you for involving us in the care of your patient. Please call with any questions. The patient was discussed and reviewed with ; Cardiology will sign-off. Subjective Principal diagnosis: diastolic CHF, accelerated HTN Interval history: Seen and examined earlier this AM. Admitted to [facility] after advised at outpatient Cardiology office due to near 50+ lbs weight gain in the past 3-4 months. Reports significant symptom improvement this AM--has been up and ambulating in room and hallways. Has been d/c'ed by Hospitalist this morning. Has f/u with [facility] later this week Objective Vital Signs, Last 4 Hours Temp Pulse Resp BP Pulse Ox 01/06/17 08:00 97 01/06/17 07:54 18 98 01/06/17 07:06 97.7 F 51 16 157/68 97 General: Conversant HEENT: Atraumatic, Normocephaly Cardiac: Reg Rate and Rhythm, Normal S1 and S2 Lungs: Normal Breath Sounds Abdomen: Other (large) Musculoskeletal: No Chest Wall Tenderness Extremities: Other (BLE edema, +1 to knees) Results 01/04/17 10:42 01/06/17 05:46 Lab Results 01/06/17 05:46 Sodium 140 Potassium 4.3 Chloride 104 Carbon Dioxide 27 BUN 42 H Creatinine 1.35 H Glucose 121 H Calcium 9.0 Intake & Output 01/03/17 01/04/17 01/05/17 01/06/17 23:59 23:59 23:59 23:59 Intake Total 540 / 540 480 / 480 600 / 600 Output Total 1125 / 1125 3230 / 3230 1000 / 1000 Balance -585 / -585 -2750 / -2750 -400 / -400 Weight 146.057 kg 138.527 kg 139.162 kg Unable to drop in medications because patient was d/c'ed. - Imaging and Cardiology Echo: report reviewed Other Results: Telemetry removed overnight. Consult Discharge Plan - Plan Instructions: Bumetanide (By mouth), Heart Failure (DC), Chronic Hypertension ( DC) Additional Instructions: Follow with primary care physician within the next 7 days. Stop Lasix and start Bumex 1 mg twice a day. Follow with cardiology within the next 2-3 weeks. Decrease fluid intake Referrals: Livia Quiñonez [Primary Care Provider] - (Please call primary care physician on Saturday to schedule hospital follow up appointment.) Prescriptions: Bumetanide [Bumex] 1 mg PO BID #60 tablet
--- NOTE | 2017-01-07 15:55 | Electrocardiograph Report ---
[address] [place] [address] Test Date: 2017-01-05 Pat Name: Edward Watters Department: 113 Room: 3B22 Gender: M Cloud Engineer: : 1950 Requested By: Kamla Morejon Order Number: [id number] Reading MD: Jose Morris MD Measurements Intervals [place] Rate: 53 P: UT: 0 QRS: -72 QRSD: 181 T: 58 QT: 540 QTc: 523 Interpretive Statements SINUS RHYTHM WITH FIRST DEGREE AV BLOCK RIGHT BUNDLE BRANCH BLOCK LEFT ANTERIOR FASCICULAR BLOCK BIFASCICULAR BLOCK POSSIBLE ANTERIOR MYOCARDIAL INFARCTION, PROBABLY OLD Electronically Signed On 01-07-2017 15:53:19 EST by Jose Morris MD
== END 2017-01-06 10:40 | disposition home or self-care (01) ==
LOC: 3BNU 10:01 → EMEROO 10:01 → SUATTDRO 14:08 → 3BNU 15:04
PROVIDERS: ADMIT Internal Medicine; ATTEND Internal Medicine

== ENCOUNTER 2017-02-09 22:38 | Inpatient (IN) ==
[2017-02-09] MEDS ORDERED: 0.9 % Sodium Chloride 1,000 ML IVC ONE (23:18)
--- NOTE | 2017-02-09 23:28 | Emergency Department Note ---
Disposition Clinical Impression: Influenza A, Acute on chronic renal failure, NSTEMI (non-ST elevated myocardial infarction) COPD (chronic obstructive pulmonary disease) Qualifiers: COPD type: unspecified COPD Qualified Code(s): J44.9 - Chronic obstructive pulmonary disease, unspecified Disposition: Admitted As Inpatient Condition: Fair Referrals: NO,PCP [Primary Care Provider] - Forms: ED Satisfaction Letter General Adult HPI - General Chief complaint: ED Nausea/Vomiting/Diarrhea Stated complaint: "fever and stuff" Time Seen by Provider: 02/09/17 23:02 Source: patient Mode of arrival: private vehicle Limitations: no limitations Nursing Notes Reviewed: Yes Vital Signs Reviewed: Yes - History of Present Illness Pt Subjective Complaint: "I think I have the flu" Onset (ago): day(s) (2) Pain Scale: 0 - Related Data Home Medications Medication Instructions Recorded Confirmed Albuterol Sulfate [Albuterol 2 puff IH Q6HR PRN 04/18/16 01/04/17 Inhaler] Aspirin Enteric Coated [Aspirin EC] 81 mg PO DAILY 04/18/16 01/04/17 Budesonide/Formoterol 160/4.5 2 puff IH BIDR 04/18/16 01/04/17 [Symbicort 160/4.5] FLUoxetine HCl [Prozac] 40 mg PO DAILY 04/18/16 01/04/17 Famotidine [Pepcid] 20 mg PO BID 04/18/16 01/04/17 GlipiZIDE [Glucotrol] 10 mg PO DAILY 04/18/16 01/04/17 Hydralazine HCl 25 mg PO TID 04/18/16 01/04/17 Isosorbide MONOnitrate (24 HR) 60 mg PO DAILY 04/18/16 01/04/17 [Imdur] Losartan/Hydrochlorothiazide 1 tab PO DAILY 04/18/16 01/04/17 [Hyzaar 100-25 Tablet] Metformin HCl [Glucophage] 1,000 mg PO BID 04/18/16 01/04/17 Nebivolol HCl [Bystolic] 20 mg PO BID 04/18/16 01/04/17 Pantoprazole Sodium [Protonix] 40 mg PO DAILY 04/18/16 01/04/17 Spironolactone [Aldactone] 50 mg PO DAILY 04/18/16 01/04/17 Ferrous Sulfate 325 mg PO BID 01/04/17 01/04/17 Melatonin/Pyridoxine HCl (B6) 1 mg PO HS 01/04/17 01/04/17 [Melatonin 1 mg Tablet] Multivit-Min/FA/Lycopen/Lutein 1 tab PO DAILY 01/04/17 01/04/17 [Centrum Silver Men Tablet] Previous Rx's Medication Instructions Recorded Bumetanide [Bumex] 1 mg PO BID #60 tablet 01/06/17 Polyethylene Glycol 3350 [MiraLAX] 17 gm PO DAILY PRN #0 powd.pack 01/06/17 Allergies Allergy/AdvReac Type Severity Reaction Status Date / Time No Known Allergies Allergy Verified 02/09/17 22:49 All systems ED: reviewed and negative except as stated. Constitutional: Reports: fever, chills, weakness Eyes: Denies: eye discharge ENT ED: Reports: throat pain. Denies: ear pain, congestion, dysphagia Cardiovascular: Denies: chest pain, palpitations, dyspnea on exertion, orthopnea , syncope Respiratory: Reports: dyspnea. Denies: cough, wheezes, hemoptysis, stridor, sputum production Gastrointestinal: Reports: diarrhea. Denies: abdominal pain, nausea, vomiting, constipation, melena, hematochezia Genitourinary: Denies: dysuria, frequency Musculoskeletal: Denies: back pain, neck pain, joint swelling Integumentary: Denies: rash, abrasion, lesions Neurological: Denies: headache, confusion, vertigo Hematological/Lymphatic: Denies: easy bleeding, easy bruising Past Medical History - Past Medical History Attestation: Yes The following information was validated with the patient. Source: patient Medical history: Reports: arthritis, asthma, atrial fibrillation, cardiomyopathy , CHF, COPD, coronary artery disease, diabetes, GERD, hyperlipidemia, hypertension, kidney stones, myocardial infarction, osteoporosis, renal disease , venous stasis, other Surgical history: Reports: coronary bypass (CABG), other (Lithotripsy. Colonoscopy. Colonic polypectomy.) Psychiatric history: Reports: anxiety, depression - Social History Smoking Status: Former smoker Smokeless Tobacco Status: No Alcohol use: Reports: none Drug use: Reports: none Physical Exam - General Limitations: no limitations General appearance: alert, in no apparent distress - Head Head exam: atraumatic, normocephalic, normal inspection - Eye Eye exam: Present: other (left eye cataract). Absent: scleral icterus, conjunctival injection, periorbital swelling - ENT ENT exam: mucous membranes dry - Neck Neck exam: Present: normal inspection, full ROM, trachea midline. Absent: meningismus, lymphadenopathy - Chest Chest inspection: Present: normal inspection, symmetric chest wall rise - Respiratory Respiratory exam: Present: wheezes, prolonged expiratory phase. Absent: respiratory distress, stridor, accessory muscle use - Cardiovascular Cardiovascular exam: Present: regular rate, normal rhythm, normal heart sounds - Abdominal Exam Abdominal exam: Present: soft, Non-Tender. Absent: distention, guarding, rebound, rigidity, mass - Extremities Exam Extremities exam: Present: full ROM - Expanded Lower Extremity Exam Gait: not tested/not observed - Neurological Exam Neurological exam: Present: alert, oriented X3, CN II-XII intact - Psychiatric Psychiatric exam: Present: normal affect, normal mood - Skin Skin exam: Present: warm, dry, intact, normal color Course Vital Signs Temperature 99.8 F H 02/09/17 22:45 Pulse Rate 72 02/09/17 22:45 Respiratory Rate 20 02/09/17 22:45 Blood Pressure 127/67 02/09/17 22:45 O2 Sat by Pulse Oximetry 84 L 02/09/17 22:45 Temperature 99.8 F H 02/09/17 22:45 Pulse Rate 72 02/09/17 22:45 Respiratory Rate 20 02/09/17 22:45 Blood Pressure 127/67 02/09/17 22:45 O2 Sat by Pulse Oximetry 84 L 02/09/17 22:45 Oxygen Delivery Oxygen Delivery Room Air Medical Decision Making - Medical Records Medical records reviewed: Yes I reviewed the patient's medical records. - Lab Data Lab results reviewed: Yes I reviewed the patient's lab results. Lab results narrative: Laboratory Last Values WBC 9.7 K/mcL (4.3-11.1) 02/10/17 00:56 RBC 4.42 M/mcL (4.19-5.50) 02/10/17 00:56 Hgb 11.9 g/dL (12.9-16.9) L 02/10/17 00:56 Hct 37.4 % (37.5-50.1) L 02/10/17 00:56 MCV 84.6 fL (83.0-100.0) 02/10/17 00:56 MCH 26.9 pg (28.0-33.3) L 02/10/17 00:56 MCHC 31.8 g/dL (31.6-35.5) 02/10/17 00:56 RDW 13.8 % (11.5-14.5) 02/10/17 00:56 Plt Count 151 K/mcL (140-400) 02/10/17 00:56 MPV 8.9 fL (9.4-12.4) L 02/10/17 00:56 Immature Gran % 0.5 % (0-4) 02/10/17 00:56 Seg Neutrophils % 84.5 % 02/10/17 00:56 Lymphocytes % 6.6 % 02/10/17 00:56 Monocytes % 8.3 % 02/10/17 00:56 Eosinophils % 0.0 % 02/10/17 00:56 Basophils % 0.1 % 02/10/17 00:56 Neutrophils # 8.2 K/mcL (1.6-8.9) 02/10/17 00:56 Lymphocytes # 0.6 K/mcL (0.6-4.6) 02/10/17 00:56 Monocytes # 0.8 K/mcL (0.0-1.3) 02/10/17 00:56 Eosinophils # 0.0 K/mcL (0.0-0.6) 02/10/17 00:56 Basophils # 0.0 K/mcL (0.0-0.2) 02/10/17 00:56 PT 15.3 Seconds (9.4-12.1) H 02/10/17 01:06 INR 1.4 02/10/17 01:06 APTT 31.0 Seconds (26.0-36.0) 02/10/17 01:06 Sodium 138 mEq/L (136-145) 02/10/17 00:28 Potassium 4.3 mEq/L (3.5-4.5) 02/10/17 00:28 Chloride 101 mEq/L (98-109) 02/10/17 00:28 Carbon Dioxide 22 mEq/L (19-29) 02/10/17 00:28 BUN 59 mg/dL (8-26) H 02/10/17 00:28 Creatinine 2.45 mg/dL (0.72-1.25) H 02/10/17 00:28 Est GFR ( Amer) 32 (> 60) L 02/10/17 00:28 Est GFR (Non-Af Amer) 27 (> 60) L 02/10/17 00:28 BUN/Creatinine Ratio 24 (6-26) 02/10/17 00:28 Glucose 113 mg/dL (70-99) H 02/10/17 00: POC Glucose 120 (58-89) H 02/10/17 01:03 Calculated Osmolality 303 (280-300) H 02/10/17:28 Lactic Acid 1.9 mmol/L (0.5-2.2) 02/10/17 00:56 Calcium 9.2 mg/dL (8.6-10.8) 02/10/17 00:28 Phosphorus 4.5 mg/dL (2.3-4.7) 02/10/17: Magnesium 2.2 mg/dL (1.6-2.6) 02/10/17 00:28 Total Bilirubin 0.3 mg/dL (0.2-1.2) 02/10/17 00:28 Direct Bilirubin 0.1 mg/dL (0.0-0.5) 02/10/17 00: Indirect Bilirubin 0.2 mg/dL (0.0-1.2) 02/10/17 00:28 AST 39 Units/L (5-34) H 02/10/17: ALT 28 Units/L (0-55) 02/10/17: Alkaline Phosphatase 54 Units/L (38-126) 02/10/17: Troponin I 0.13 ng/mL (0-0.03) H* 02/10/17 00:28 Serum Total Protein 7.5 g/dL (6.0-8.3) 02/10/17:28 Albumin 3.6 g/dL (3.5-5.0) 02/10/17:28 Globulin 3.9 g/dL (2.4-3.5) H 02/10/17 00:28 Albumin/Globulin Ratio 0.9 (1.1-2.2) L 02/10/17: Lipase 35 Units/L (8-78) 02/10/17 00:28 Urine Color Yellow (Yellow) 02/10/17 01:10 Urine Clarity Clear (Clear) 02/10/17 01:10 Urine pH 5.5 pH Units (5.0-8.0) 02/10/17 01:10 Ur Specific [place] 1.015 (1.010-1.025) 02/10/17 01:10 Urine Protein Trace mg/dL (Neg-Trace) 02/10/17 01:10 Urine Glucose (UA) Normal mg/dL (Normal) 02/10/17 01:10 Urine Ketones Negative mg/dL (Negative) 02/10/17 01:10 Urine Blood Negative (Negative) 02/10/17 01:10 Urine Nitrite Negative (Negative) 02/10/17 01:10 Urine Bilirubin Negative (Negative) 02/10/17 01:10 Urine Urobilinogen Normal mg/dL (Normal) 02/10/17 01:10 Ur Leukocyte Esterase Negative (Negative) 02/10/17 01:10 Urine Microscopic RBC 3-5 per hpf (0-3) H 02/10/17 01:10 Urine Microscopic WBC 0-3 per hpf (0-3) 02/10/17 01:10 Ur Squamous Epith Cells Moderate per lpf (None-Few) H 02/10/17 01:10 Urine Bacteria None Seen per hpf (None-Few) 02/10/17 01:10 Hyaline Casts None Seen per lpf (None-Few) 02/10/17 01:10 Ur Culture Indicated? NO (NO) 02/10/17 01:10 Specimen Rejected Hemolyzed 02/10/17 00:28 - Radiology Data Radiology results reviewed: Yes I reviewed the patient's radiology results. Chest X-Ray 02/10/17 00:00 IMPRESSION: 1. No active pulmonary disease. 2. Stable cardiomegaly without failure. D/ / Jw Butler MD / Jw Butler MD Interpreting Provider: Jw Butler MD
--- NOTE | 2017-02-09 23:46 | Emergency Department Note ---
START Narrative - START START: I examined this patient and my medical decision-making was reviewed with the CAN CLEANER/PA/Advanced Practice Nurse/Resident Physician. I agree with the documented findings, disposition and treatment plan as described except to the extent set forth below. ED attending note: Patient seen with physician bioinformatics assistant Shanika Huber. Please see a copy of his note for details of the H&P, evaluation, management and disposition of this patient. We independently had [id number] contact with the patient Briefly: 66-year-old male ambulatory since with fever. History of cirrhosis CHF COPD and CAD. Has low-grade fever here. Sat of 84% with some slight wheezes. Skin 2 and screening labs. No signs of sepsis at this time. Disposition pending. Workup in progress.
[2017-02-10 00:53] LABS: Albumin 3.6 g/dL (3.5-5.0); Albumin/Globulin Ratio 0.9 (1.1-2.2); Bilirubin,Direct 0.1 mg/dL (0.0-0.5); Bilirubin,Indirect 0.2 mg/dL (0.0-1.2); Bilirubin,Total 0.3 mg/dL (0.2-1.2); Calcium 9.2 mg/dL (8.6-10.8); Globulin 3.9 g/dL (2.4-3.5); Magnesium 2.2 mg/dL (1.6-2.6); Phosphorous 4.5 mg/dL (2.3-4.7); Potassium 4.3 mEq/L (3.5-4.5); Total Protein 7.5 g/dL (6.0-8.3)
[2017-02-10 01:04] LABS: Basophils % 0.1 %; Hematocrit 37.4 % (37.5-50.1); Hemoglobin 11.9 g/dL (12.9-16.9); Immature Granulocytes % 0.5 % (0-4); Lymphocytes # 0.6 K/mcL (0.6-4.6); Lymphocytes % 6.6 %; Mean Corpuscular HGB Conc 31.8 g/dL (31.6-35.5); Mean Corpuscular Hemoglobin 26.9 pg (28.0-33.3); Mean Corpuscular Volume 84.6 fL (83.0-100.0); Mean Platelet Volume 8.9 fL (9.4-12.4); Monocytes # 0.8 K/mcL (0.0-1.3); Monocytes % 8.3 %; Neutrophils # 8.2 K/mcL (1.6-8.9); Platelet Count 151 K/mcL (140-400); Red Blood Count 4.42 M/mcL (4.19-5.50); Red Cell Distribution Width 13.8 % (11.5-14.5); Segmented Neutrophils % 84.5 %
[2017-02-10] MEDS ORDERED: methylPREDNISolone 125 MG/2 ML VIAL IVP ONE (01:05)
[2017-02-10 01:17] LABS: Bilirubin,Urine Negative (Negative); Blood,Urine Negative (Negative); Clarity,Urine Clear (Clear); Color,Urine Yellow (Yellow); Glucose,Urine (UA) Normal (Normal); Ketones,Urine Negative (Negative); Leukocyte Esterase,Urine Negative (Negative); Nitrite,Urine Negative (Negative); PH,Urine 5.5 pH Units (5.0-8.0); Protein,Urine Trace mg/dL (Neg-Trace); Specific Gravity,Urine 1.015 (1.010-1.025); Urobilinogen,Urine Normal (Normal)
[2017-02-10 01:18] LABS: Bacteria,Urine None Seen per hpf (None-Few); Hyaline Casts,Urine None Seen per lpf (None-Few); Squamous Epithelial Cell,Urine Moderate per lpf (None-Few); WBC,Urine 0-3 per hpf (0-3)
[2017-02-10 01:22] LABS: INR 1.4; Prothrombin Time 15.3 Seconds (9.4-12.1)
[2017-02-10] MEDS ORDERED: Aspirin 81 MG TAB.CHEW PO ONE (01:28)
--- NOTE | 2017-02-10 05:27 | Internal Med History&Physical ---
Date of Encounter: 02/10/17 Time of Encounter: 05:24 Assessment and Plan (1) Influenza A Current visit: Yes Status: Acute Patient with flulike symptoms and testing has been positive for influenza. He has been started on Tamiflu, will continue with the same. Isolation. (2) Acute on chronic renal failure Current visit: Yes Status: Acute Patient with underlying chronic kidney disease, worsening of the kidney function test. We will continue monitoring electrolytes and kidney function tests closely. Avoid nephrotoxic agents. (3) Elevated troponin Current visit: Yes Status: Acute Mild elevation of cardiac biomarkers in patient with concomitant infection secondary to influenza virus. Mild and substernal chest pain is concerning. Additionally, patient has a history of coronary artery disease and we will continue with telemetry monitoring. Will monitor the trend of troponins. Continue with aspirin. (4) COPD (chronic obstructive pulmonary disease) Current visit: Yes Status: Acute Nebulizer therapy. Oxygen supplementation to maintain an appropriate oxygen saturation. Qualifiers: COPD type: unspecified COPD Qualified Code(s): J44.9 - Chronic obstructive pulmonary disease, unspecified (5) Atrial fibrillation Current visit: No Status: Acute Rate controlled. Qualifiers: Atrial fibrillation type: paroxysmal Qualified Code(s): I48.0 - Paroxysmal atrial fibrillation (6) Diastolic dysfunction Current visit: No Status: Chronic Internal Medicine - H&P: HPI Chief complaint: Generalized weakness Admitted From: Emergency Dept Plans for Post Hospital Care: Home History of present illness: Mr. Watters is a 66 year old male with past medical history of COPD, coronary artery disease, status post CABG 15 years ago, type 2 diabetes, obesity, hyperlipidemia, congestive heart failure (diastolic), chronic kidney disease. Patient presented to the emergency department complaining of 4 days of progressive weakness along with chills. Patient denies fever. Additionally, patient is complaining of some productive cough and substernal chest pain which is intermittent. Upon admission to the emergency department he had a blood pressure 130/68, heart rate was 75/m, respiratory rate was 18/m, he was saturating 95% on oxygen supplementation via nasal cannula at 3 L/m. Initial blood work revealed a hemoglobin of 11.9, WBC was 9.7, platelet count was 151, 000. Troponin was mildly elevated at 0.13. Sodium was 138, potassium 4.3, chloride 101, bicarbonate 22, BUN 59, creatinine 2.45, glucose 113. Testing for influenza was positive. A chest x-ray did not reveal any acute infiltrates. In the emergency department he received a dose of Tamiflu, systemic steroids and aspirin. The patient was admitted for further management and workup. Past Med Surg Social Fam HX - Past Medical History Medical history: arthritis, asthma, atrial fibrillation, cardiomyopathy, CHF, COPD, coronary artery disease, diabetes, GERD, hyperlipidemia, hypertension, kidney stones, myocardial infarction, osteoporosis, renal disease, venous stasis , other Psychiatric history: anxiety, depression - Past Surgical History Surgical History: coronary bypass (CABG), other (Lithotripsy. Colonoscopy. Colonic polypectomy.) - Social History Smoking Status: Former smoker Smokeless Tobacco Status: No Alcohol use: none Drug use: none - Family History Father Living Status: Hx Family Cancer: Yes Mother Living Status: Hx Family Cancer: Yes Internal Medicine - H&P: Meds Albuterol Sulfate [Albuterol Inhaler] 2 puff IH Q6HR PRN 04/18/16 [History] Aspirin Enteric Coated [Aspirin EC] 81 mg PO DAILY 04/18/16 [History] Budesonide/Formoterol 160/4.5 [Symbicort 160/4.5] 2 puff IH BIDR 04/18/16 [ History] FLUoxetine HCl [Prozac] 40 mg PO DAILY 04/18/16 [History] Famotidine [Pepcid] 20 mg PO BID 04/18/16 [History] GlipiZIDE [Glucotrol] 10 mg PO DAILY 04/18/16 [History] Hydralazine HCl 25 mg PO TID 04/18/16 [History] Isosorbide MONOnitrate (24 HR) [Imdur] 60 mg PO DAILY 04/18/16 [History] Losartan/Hydrochlorothiazide [Hyzaar 100-25 Tablet] 1 tab PO DAILY 04/18/16 [ History] Metformin HCl [Glucophage] 1,000 mg PO BID 04/18/16 [History] Nebivolol HCl [Bystolic] 20 mg PO BID 04/18/16 [History] Pantoprazole Sodium [Protonix] 40 mg PO DAILY 04/18/16 [History] Spironolactone [Aldactone] 50 mg PO DAILY 04/18/16 [History] Ferrous Sulfate 325 mg PO BID 01/04/17 [History] Melatonin/Pyridoxine HCl (B6) [Melatonin 1 mg Tablet] 1 mg PO HS 01/04/17 [ History] Multivit-Min/FA/Lycopen/Lutein [Centrum Silver Men Tablet] 1 tab PO DAILY [History] Bumetanide [Bumex] 1 mg PO BID #60 tablet 01/06/17 [Rx] Polyethylene Glycol 3350 [MiraLAX] 17 gm PO DAILY PRN #0 powd.pack 01/06/17 [Rx] Allergies No Known Allergies Allergy (Verified 02/09/17 22:49) All Systems PM: A 10-system review of systems was performed and is negative for pertinent findings except as documented above in the HPI. - Constitutional Constitutional: as per HPI, chills, fatigue, malaise, no fever(s), no night sweats - EENT Eyes: as per HPI, no change in vision, no discharge, no pain, no photophobia Ears: as per HPI, no ear discharge, no ear pain, no tinnitus Nose, mouth and throat: as per HPI, no dysphagia, no nasal discharge, no neck pain, no sore throat - Breasts Breasts: as per HPI - Cardiovascular Cardiovascular ROS IM: as per HPI, chest pain, dyspnea, dyspnea on exertion, no diaphoresis, no lightheadedness, no palpitations, no syncope - Respiratory Respiratory: cough, dyspnea on exertion, wheezing, no dyspnea, no excessive phlegm production - Gastrointestinal Gastrointestinal: as per HPI, no abdominal pain, no diarrhea, no hematemesis, no hematochezia, no melena, no nausea, no vomiting - Genitourinary Genitourinary ROS male: as per HPI - Musculoskeletal Musculoskeletal ROS IM: as per HPI, no numbness, no tingling - Integumentary Integumentary IM: as per HPI, no rash, no unusual bruising - Neurological Neurological ROS: as per HPI, no confusion, no convulsions, no focal weakness, no numbness, no tingling, no tremor(s) - Psychiatric Psychiatric: as per HPI - Endocrine Endocrine IM: as per HPI - Hematologic/Lymphatic Hematologic/Lymphatic: as per HPI, no easy bruising - Allergic/Immunologic Allergic/Immunologic: as per HPI - Constitutional Vitals: Temp Pulse Resp BP Pulse Ox 97.9 F 63 17 147/55 92 L 03/26/17 04:18 02/10/17 04:18 02/10/17 04:18 02/10/17 04:18 02/10/17 04:18 General appearance: Present: disheveled, mild distress, A&O X 3, morbidly obese - Head Head exam: Present: atraumatic, normocephalic - Eye Eye exam: Present: PERRL, conjuntiva pink, sclera anicteric Pupils: Present: PERRL - Neck Neck exam general surgery: Present: supple, trachea midline. Absent: lymphadenopathy - Respiratory Respiratory exam: Present: decreased breath sounds, wheezes. Absent: accessory muscle use, rales, rhonchi - Cardiovascular Cardiovascular exam: Present: RRR, +S1, +S2. Absent: diastolic murmur, gallop, rubs, systolic murmur - GI/Abdominal GI/Abdominal exam: Present: normal bowel sounds, soft, no peritoneal signs. Absent: distended, tenderness - Extremities Exam Extremities exam: Present: pedal edema, warm, radial pulses palpable and symetrical. Absent: calf tenderness, cyanotic - Neurological Exam Neurological exam: Present: CN II-XII intact, oriented X3, no focal deficits. Absent: pronater drift, facial droop, speech deficit - Skin Skin exam: Present: dry, intact Internal Med - H&P Results - Labs CBC & Chem 7: 02/10/17 00:56 02/10/17 00:28
[2017-02-10] MEDS ORDERED: *HR* Morphine 2 MG/ML SYRINGE IVP PRN (05:40)
[2017-02-10] MEDS ORDERED: *HR* Dextrose 50 % in Water (Syg) 50 ML SYRINGE IVP PRN (05:40)
[2017-02-10] MEDS ORDERED: Acetaminophen 325 MG TABLET PO PRN (05:40)
[2017-02-10] MEDS ORDERED: D5% in Water 1,000 ML IVC PRN (05:40)
[2017-02-10] MEDS ORDERED: Naloxone 0.4 MG/ML INJ IVP PRN (05:40)
[2017-02-10] MEDS ORDERED: Dextrose Gel 15 GM PO PRN ×2 (05:40)
[2017-02-10] MEDS ORDERED: Albuterol 2.5 MG/3 ML NEBULIZER IH PRN (05:40)
[2017-02-10] MEDS ORDERED: Furosemide 20 MG/2 ML VIAL IVP ONE (05:44)
[2017-02-10] MEDS: Insulin LISPRO 300 UNITS/3 ML VIAL SQ SCH ×3 (08:03→17:53)
[2017-02-10] MEDS: Isosorbide MONOnitrate (24 HR) 60 MG TAB.ER.24H PO SCH (10:03)
[2017-02-10] MEDS: Aspirin Enteric Coated 81 MG Tablet PO SCH (10:03)
[2017-02-10] MEDS: Oseltamivir Phosphate 30 MG CAPSULE PO SCH ×2 (10:07→21:28)
[2017-02-10] MEDS: Ipratropium/Albuterol Neb 3 ML IH SCH ×3 (10:59→22:40)
--- NOTE | 2017-02-10 17:36 | Event Note ---
Date of Encounter: 02/10/17 Time of Encounter: 17:34 Patient with multiple medical comorbidities admitted for treatment of influenza with severe generalized symptoms. He has a history of COPD, diabetes, coronary artery disease and morbid obesity. On exam he is in no acute distress, lung exam reveals bilateral bilateral expiratory wheezes heart is regular. Troponin levels show flat elevation of 0.10 to 0.14. Plan we will continue with Tamiflu and supportive care. Inhaled DuoNeb 4 times a day.
[2017-02-10] MEDS: *HR* Heparin 5,000 UNIT/ML VIAL SQ SCH (20:51)
[2017-02-10] MEDS ORDERED: Insulin LISPRO 300 UNITS/3 ML VIAL SQ SCH (21:00)
[2017-02-11] MEDS: Ipratropium/Albuterol Neb 3 ML IH SCH ×2 (04:31→10:39)
[2017-02-11 05:00] LABS: Basophils % 0.1 %; Eosinophils % 0.4 %; Hematocrit 33.8 % (37.5-50.1); Hemoglobin 10.8 g/dL (12.9-16.9); Immature Granulocytes % 0.4 % (0-4); Lymphocytes % 14.1 %; Mean Corpuscular Hemoglobin 26.9 pg (28.0-33.3); Mean Corpuscular Volume 84.1 fL (83.0-100.0); Mean Platelet Volume 9.1 fL (9.4-12.4); Monocytes # 0.7 K/mcL (0.0-1.3); Monocytes % 9.6 %; Neutrophils # 5.4 K/mcL (1.6-8.9); Platelet Count 137 K/mcL (140-400); Red Blood Count 4.02 M/mcL (4.19-5.50); Red Cell Distribution Width 13.8 % (11.5-14.5); Segmented Neutrophils % 75.4 %
[2017-02-11] MEDS ORDERED: BENZOCAINE/MENTHOL 1 LOZENGE (BAG OF 6) MM PRN (05:03)
[2017-02-11 05:08] LABS: INR 1.3; Prothrombin Time 14.3 Seconds (9.4-12.1)
[2017-02-11 05:15] LABS: Albumin 3.1 g/dL (3.5-5.0); Albumin/Globulin Ratio 0.8 (1.1-2.2); Bilirubin,Total 0.3 mg/dL (0.2-1.2); Calcium 8.8 mg/dL (8.6-10.8); Globulin 3.7 g/dL (2.4-3.5); Magnesium 2.4 mg/dL (1.6-2.6); Potassium 4.4 mEq/L (3.5-4.5); Total Protein 6.8 g/dL (6.0-8.3)
[2017-02-11] MEDS: *HR* Heparin 5,000 UNIT/ML VIAL SQ SCH ×2 (06:01→09:41)
--- NOTE | 2017-02-11 06:58 | Electrocardiograph Report ---
[address] [place], [place] [address] Test Date: 2017-02-09 Pat Name: Edward Watters Department: [id number] Room: 2NE21 Gender: M [employer]: : 1950 Requested By: Shanika Huber Order Number: [id number] Reading MD: Jose Morris MD Measurements Intervals [place] Rate: 67 P: 214 FL: 129 QRS: 259 QRSD: 136 T: 79 QT: 428 QTc: 443 Interpretive Statements SINUS RHYTHM MARKED RIGHT AXIS DEVIATION RIGHT BUNDLE BRANCH BLOCK INFERIOR MYOCARDIAL INFARCTION, AGE UNDETERMINED ANTEROLATERAL MYOCARDIAL INFARCTION, PROBABLY OLD Electronically Signed On 02-11-2017 6:57:13 EDT by Jose Morris MD
[2017-02-11 08:14] VITALS: BP 148/68
[2017-02-11] MEDS: Insulin LISPRO 300 UNITS/3 ML VIAL SQ SCH (09:40)
[2017-02-11] MEDS: Aspirin Enteric Coated 81 MG Tablet PO SCH (09:45)
[2017-02-11] MEDS: Isosorbide MONOnitrate (24 HR) 60 MG TAB.ER.24H PO SCH (09:45)
[2017-02-11] MEDS: Oseltamivir Phosphate 30 MG CAPSULE PO SCH (09:45)
--- NOTE | 2017-02-11 11:09 | Discharge Summary ---
Date of Encounter: 02/11/17 Time of Encounter: 11:07 - Discharge Diagnosis (1) Morbid obesity with BMI of 60.0-69.9, adult Priority: Secondary Status: Acute (2) Ischemic cardiomyopathy Priority: Secondary Status: Acute (3) CAD in craig artery Priority: Secondary Status: Chronic (4) Atrial fibrillation Priority: Secondary Status: Acute Qualifiers: Atrial fibrillation type: paroxysmal Qualified Code(s): I48.0 - Paroxysmal atrial fibrillation (5) Influenza A Priority: Primary Status: Acute (6) COPD (chronic obstructive pulmonary disease) Priority: Secondary Status: Acute Qualifiers: COPD type: unspecified COPD Qualified Code(s): J44.9 - Chronic obstructive pulmonary disease, unspecified (7) Elevated troponin Priority: Secondary Status: Acute - Discharge Medications Prescriptions: Ipratropium/Albuterol Neb [Duoneb] 3 ml IH TID #60 inhsol Oseltamivir Phosphate [Tamiflu] 30 mg PO BID #8 capsule Home Medications: Albuterol Sulfate [Albuterol Inhaler] 2 puff IH Q6HR PRN 04/18/16 [History] Aspirin Enteric Coated [Aspirin EC] 81 mg PO DAILY 04/18/16 [History] Budesonide/Formoterol 160/4.5 [Symbicort 160/4.5] 2 puff IH BIDR 04/18/16 [ History] FLUoxetine HCl [Prozac] 40 mg PO DAILY 04/18/16 [History] Famotidine [Pepcid] 20 mg PO BID 04/18/16 [History] GlipiZIDE [Glucotrol] 10 mg PO DAILY 04/18/16 [History] Hydralazine HCl 25 mg PO TID 04/18/16 [History] Isosorbide MONOnitrate (24 HR) [Imdur] 60 mg PO DAILY 04/18/16 [History] Nebivolol HCl [Bystolic] 20 mg PO BID 04/18/16 [History] Spironolactone [Aldactone] 50 mg PO DAILY 04/18/16 [History] Ferrous Sulfate 325 mg PO BID 01/04/17 [History] Melatonin/Pyridoxine HCl (B6) [Melatonin 1 mg Tablet] 1 mg PO HS 01/04/17 [ History] Multivit-Min/FA/Lycopen/Lutein [Centrum Silver Men Tablet] 1 tab PO DAILY [History] Polyethylene Glycol 3350 [MiraLAX] 17 gm PO DAILY PRN #0 powd.pack 01/06/17 [Rx] Bumetanide [Bumex] 1 mg PO DAILY #60 tablet 02/11/17 [Rx] Ipratropium/Albuterol Neb [Duoneb] 3 ml IH TID #60 inhsol 02/11/17 [Rx] Oseltamivir Phosphate [Tamiflu] 30 mg PO BID #8 capsule 02/11/17 [Rx] Allergies/Adverse Reactions: Allergies No Known Allergies Allergy (Verified 02/09/17 22:49) Date of admission: 02/10/17 05:40 Primary care physician: Livia Quiñonez - Patient Status Disposition: Home, Self-Care Condition: Fair Functional capacity at discharge: uses cane/walker Overall status at discharge: patient is back to baseline - Discharge Instructions Instructions: Oseltamivir (By mouth), Influenza (DC), Influenza (GEN) Follow Up With: Livia Quiñonez CNP [Advanced Practice Nurse] - Ramírez Beckett CNP [Advanced Practice Nurse] - 03/08/17 9:15 am - Diet and Activity Activity: increase activity as tolerated Diet: advance to your usual diet, diabetic diet, low fat, low cholesterol, low salt diet Hospital course: Hospital presentation: Mr. Watters is a 66 year old male with past medical history of COPD, coronary artery disease, status post CABG 15 years ago, type 2 diabetes, obesity, hyperlipidemia, congestive heart failure (diastolic), chronic kidney disease. Patient presented to the emergency department complaining of 4 days of progressive weakness along with chills. Patient denies fever. Additionally, patient is complaining of some productive cough and substernal chest pain which is intermittent. Upon admission to the emergency department he had a blood pressure 130/68, heart rate was 75/m, respiratory rate was 18/m, he was saturating 95% on oxygen supplementation via nasal cannula at 3 L/m. Initial blood work revealed a hemoglobin of 11.9, WBC was 9.7, platelet count was 151,000. Troponin was mildly elevated at 0.13. Sodium was 138, potassium 4.3, chloride 101, bicarbonate 22, BUN 59, creatinine 2.45, glucose 113. Testing for influenza was positive. A chest x-ray did not reveal any acute infiltrates. In the emergency department he received a dose of Tamiflu, systemic steroids and aspirin. The patient was admitted for further management and workup. Hospital course: While admitted to the hospital he received IV fluids. He continued treatment with Tamiflu. He did have mild wheezing and cough and his shortness of breath improved with inhaled DuoNeb. We did not continue treatment with steroids during this hospitalization. He remained afebrile for the last 24 hours. His troponin trended down and is currently 0.09. Due to acute kidney injury and chronic kidney disease we held the Bumex losartan and HCTZ. Bumex will be restarted on discharge at half the dose and losartan and HCTZ will be held. He made an unexpectedly fast improvement given the severity of his illness on presentation and multiple associated comorbidities including morbid obesity coronary artery disease, COPD and poorly controlled diabetes. Today he reports the shortness of breath has significantly improved. His exam reveals mild expiratory wheezes. His oxygenation is at baseline. He does have home oxygen. His creatinine is trending down and white count is normal. He will be discharged home. We will discontinue the metformin due to elevated creatinine. We recommend outpatient stress test given his elevated troponin which was likely related to his influenza, however he does have a history of coronary artery disease and no recent ischemic workup. The patient is currently medically stable for discharge home. - Time Spent with Patient Total time spent providing and/or coordinating discharge services: Greater than 30 minutes (I have spent 45 minutes coordinating this discharge.) - Constitutional Vitals: Temp Pulse Resp BP Pulse Ox 98.3 F 57 16 148/68 95 02/11/17 08:05 02/11/17 08:05 02/11/17 10:39 02/11/17 08:05 02/11/17 10:39 General appearance: Present: disheveled, mild distress, A&O X 3, morbidly obese - Respiratory Respiratory exam: Present: wheezes. Absent: accessory muscle use, rales, rhonchi - Cardiovascular Cardiovascular exam: Present: RRR, +S1, +S2. Absent: diastolic murmur, gallop, rubs, systolic murmur - GI/Abdominal GI/Abdominal exam: Present: normal bowel sounds, soft, no peritoneal signs. Absent: distended, tenderness - Extremities Exam Extremities exam: Present: warm, radial pulses palpable and symetrical. Absent : calf tenderness, cyanotic, pedal edema - Neurological Exam Neurological exam: Present: CN II-XII intact, oriented X3, no focal deficits. Absent: pronater drift, facial droop, speech deficit
== END 2017-02-11 12:18 | disposition home or self-care (01) | DRG 194 ==
LOC: 2NENU 22:38 → EMEROO 22:38 → 2NENU 02-10 04:13
PROVIDERS: ADMIT Internal Medicine; ATTEND Internal Medicine

== ENCOUNTER 2017-02-22 13:12 | Inpatient (IN) ==
[2017-02-22 14:50] LABS: Basophils % 0.5 %; Eosinophils # 0.2 K/mcL (0.0-0.6); Eosinophils % 2.1 %; Hematocrit 32.9 % (37.5-50.1); Hemoglobin 10.3 g/dL (12.9-16.9); Immature Granulocytes % 1.3 % (0-4); Lymphocytes % 12.2 %; Mean Corpuscular HGB Conc 31.3 g/dL (31.6-35.5); Mean Corpuscular Hemoglobin 27.5 pg (28.0-33.3); Mean Platelet Volume 8.9 fL (9.4-12.4); Monocytes # 0.4 K/mcL (0.0-1.3); Monocytes % 5.4 %; Neutrophils # 6.4 K/mcL (1.6-8.9); Platelet Count 243 K/mcL (140-400); Red Blood Count 3.74 M/mcL (4.19-5.50); Red Cell Distribution Width 13.6 % (11.5-14.5); Segmented Neutrophils % 78.5 %
[2017-02-22 14:52] LABS: INR 1.4; Prothrombin Time 15.1 Seconds (9.4-12.1)
[2017-02-22 14:55] LABS: Activated Partial Thrombo Time 32.5 Seconds (26.0-36.0)
[2017-02-22 15:00] LABS: BUN/Creatinine Ratio 23 (6-26); Blood Urea Nitrogen 30 mg/dL (8-26); Calcium 9.5 mg/dL (8.6-10.8); Carbon Dioxide 29 mEq/L (19-29); Chloride 104 mEq/L (98-109); Glucose 134 mg/dL (70-99); Osmolality,Calculated 304 (280-300); Potassium 4.5 mEq/L (3.5-4.5); Sodium 143 mEq/L (136-145); eGFR For African Americans > 60 (> 60); eGFR For Non-African Americans 54 (> 60)
--- NOTE | 2017-02-22 15:47 | Emergency Department Note ---
Disposition Clinical Impression: COPD with acute exacerbation CHF exacerbation Qualifiers: Congestive heart failure type: systolic Qualified Code(s): I50.23 - Acute on chronic systolic (congestive) heart failure Disposition: Admitted As Inpatient Condition: Fair Time of Disposition: 18:19 SOB HPI - General Chief Complaint: ED Shortness of Breath/Dyspnea Stated Complaint: "pnuemonia" Source: patient Limitations: no limitations Nursing Notes Reviewed: Yes Vital Signs Reviewed: Yes - History of Present Illness Patient is a 66-year-old male complains of shortness of breath the past 4 days. Patient has a history of COPD, CHF, CABG who is under care of Dr. Morris cardiology. Patient saw his primary care physician yesterday who took a chest x -ray and called him today and told to come to the ED secondary to possibly having a pneumonia. Patient states he has had to increase his home O2 from 2-3 L over the past several days. Patient states he is not getting any sleep currently. He states his cough is getting worse since nonproductive but wet sounding. Onset (ago): day(s) - Related Data Home Medications Medication Instructions Recorded Confirmed Albuterol Sulfate [Albuterol 2 puff IH Q6HR PRN 04/18/16 02/22/17 Inhaler] Aspirin Enteric Coated [Aspirin EC] 81 mg PO DAILY 04/18/16 02/22/17 Budesonide/Formoterol 160/4.5 2 puff IH BIDR 04/18/16 02/22/17 [Symbicort 160/4.5] FLUoxetine HCl [Prozac] 40 mg PO DAILY 04/18/16 02/22/17 Famotidine [Pepcid] 20 mg PO BID 04/18/16 02/22/17 GlipiZIDE [Glucotrol] 10 mg PO DAILY 04/18/16 02/22/17 Hydralazine HCl 25 mg PO TID 04/18/16 02/22/17 Isosorbide MONOnitrate (24 HR) 60 mg PO DAILY 04/18/16 02/22/17 [Imdur] Nebivolol HCl [Bystolic] 20 mg PO BID 04/18/16 02/22/17 Spironolactone [Aldactone] 50 mg PO DAILY 04/18/16 02/22/17 Ferrous Sulfate 325 mg PO BID 01/04/17 02/22/17 Melatonin/Pyridoxine HCl (B6) 1 mg PO HS 01/04/17 02/22/17 [Melatonin 1 mg Tablet] Multivit-Min/FA/Lycopen/Lutein 1 tab PO DAILY 01/04/17 02/22/17 [Centrum Silver Men Tablet] Pantoprazole Sodium [Protonix] 40 mg PO DAILY 02/22/17 02/22/17 Previous Rx's Medication Instructions Recorded Polyethylene Glycol 3350 [MiraLAX] 17 gm PO DAILY PRN #0 powd.pack 01/06/17 Bumetanide [Bumex] 1 mg PO DAILY #60 tablet 02/11/17 Ipratropium/Albuterol Neb [Duoneb] 3 ml IH TID #60 inhsol 02/11/17 Allergies Allergy/AdvReac Type Severity Reaction Status Date / Time No Known Allergies Allergy Verified 02/09/17 22:49 All systems ED: reviewed and negative except as stated. Constitutional: Reports: chills. Denies: fever ENT ED: Reports: congestion Respiratory: Reports: cough, wheezes Gastrointestinal: Reports: constipation. Denies: abdominal pain, nausea, vomiting, diarrhea Genitourinary: Denies: urgency, dysuria, frequency Musculoskeletal: Denies: back pain, neck pain Neurological: Denies: headache, weakness, confusion Endocrine: Reports: fatigue Past Medical History - Past Medical History Attestation: Yes The following information was validated with the patient. Source: patient Medical history: Reports: arthritis, asthma, atrial fibrillation, cardiomyopathy , CHF, COPD, coronary artery disease, diabetes, GERD, hyperlipidemia, hypertension, kidney stones, myocardial infarction, osteoporosis, renal disease , venous stasis, other Surgical history: Reports: coronary bypass (CABG), other Psychiatric history: Reports: anxiety, depression - Social History Smoking Status: Former smoker Smokeless Tobacco Status: No Alcohol use: Reports: none Drug use: Reports: none Physical Exam Vital Signs Temperature 97.5 F L 02/22/17 13:25 Pulse Rate 68 02/22/17 13:25 Respiratory Rate 16 02/22/17 13:25 Blood Pressure 163/77 02/22/17 13:25 O2 Sat by Pulse Oximetry 97 02/22/17 13:25 Temperature 97.5 F L 02/22/17 13:25 Pulse Rate 68 02/22/17 13:25 Respiratory Rate 16 02/22/17 13:25 Blood Pressure 163/77 02/22/17 13:25 O2 Sat by Pulse Oximetry 90 02/22/17 15:45 Oxygen Delivery Oxygen Delivery Nasal Cannula -General Appearance: Patient is a 66-year-old male is alert and oriented 3 and in no acute distress. Patient is able to speak full sentences without respiratory positive. Patient has periodic wet sounding cough is nonproductive. -Neurological exam: Cranial nerves II-12 intact, no focal deficits observed, strength equal 5/5 bilaterally in upper and lower extremities, cerebellar motion test negative. Negative loss of sensation - Head Head exam: atraumatic, normocephalic, normal inspection - Eye Eye exam: Present: Abnormal left eye, blind in left eye. Right eye round reactive to light, extraocular motion intact - ENT ENT exam: normal exam, normal oropharynx, mucous membranes moist - Neck Neck exam: Present: normal inspection, full ROM, trachea midline, negative JVD - Chest Chest inspection: Present: Patient has bilateral equal rise and fall of chest wall. Non-tender to palpation. - Respiratory Respiratory exam: Clear to auscultation bilaterally without wheezes rales or rhonchi Cardiovascular Cardiovascular exam: Present: regular rate, normal rhythm, normal heart sounds, without murmurs rubs or gallops. - Abdominal Exam Abdominal exam: Present: soft, nondistended, Non-Tender light and deep palpation in all quadrants. Bowel sounds normoactive throughout all 4 quadrants. Negative for hyper or hyperresonance. - Extremities Exam Extremities exam: Present: normal inspection, full ROM - Back Exam Back exam: Present: normal inspection, full ROM. Absent: tenderness, CVA tenderness (R), CVA tenderness (L) - Psychiatric Psychiatric exam: Present: normal affect, normal mood - Skin Skin exam: Present: warm, dry, intact, normal color - General Limitations: no limitations General appearance: alert Course - Reevaluation(s) Reevaluation #1: Patient presents with shortness of breath concerning for: PE, CHF exacerbation, pneumonia, pneumothorax Plan: Patient has a really had CBC, BMP, troponin, EKG. patient is heading down for a chest x-ray now. Time: 15:48 Reevaluation #2: Post-DuoNeb therapy. Patient's lung sounds are improved. I do not hear any wheezing on this lung check. Patient's chest x-ray shows a left Carrie effusion. Unsure if there is underlying pneumonia. Recommended admission for IV antibiotic therapy to cover for COPD exacerbation and possible to healthcare associated pneumonia, as well as CHF exacerbation with worsening BNP. Starting antibiotic therapy with cefepime, azithromycin, and vancomycin Time: 17:21 Reevaluation #3: Lung sounds rechecked and patient patient has some inspiratory wheezing on auscultation again. Patient's lung sounds still sound improved from initial encounter and patient states they still feel better than it did before. Patient accepts this is in to admit to hospital for further treatment Awaiting callback from hospitalist for admission Time: 17:43 - Consultations Consultation #1: Zee MADRID accepted admission for Dr. Zuluaga Time: 18:17 Vital Signs Temperature 97.5 F L 02/22/17 13:25 Pulse Rate 68 02/22/17 13:25 Respiratory Rate 16 02/22/17 13:25 Blood Pressure 163/77 02/22/17 13:25 O2 Sat by Pulse Oximetry 97 02/22/17 13:25 Temperature 97.6 F 02/24/17 07:09 Pulse Rate 66 02/24/17 07:09 Respiratory Rate 17 02/24/17 07:09 Blood Pressure 137/68 02/24/17 07:09 O2 Sat by Pulse Oximetry 94 02/24/17 07:09 Oxygen Delivery Oxygen Delivery Nasal Cannula Shortness of Breath/Dyspnea - Medical Records Medical records reviewed: Yes I reviewed the patient's medical records. - Lab Data Lab results reviewed: Yes I reviewed the patient's lab results. Lab results narrative: Short CBC 02/22/17 Range/Units 14:39 WBC 8.2 (4.3-11.1) K/mcL Hgb 10.3 L (12.9-16.9) g/dL Hct 32.9 L (37.5-50.1) % Plt Count 243 (140-400) K/mcL Neutrophils # 6.4 (1.6-8.9) K/mcL BMP 02/22/17 Range/Units 14:39 Sodium 143 (136-145) mEq/L Potassium 4.5 (3.5-4.5) mEq/L Chloride 104 (98-109) mEq/L Carbon Dioxide 29 (19-29) mEq/L BUN 30 H (8-26) mg/dL Creatinine 1.33 H (0.72-1.25) mg/dL Glucose 134 H (70-99) mg/dL Calcium 9.5 (8.6-10.8) mg/dL Cardiac Enzymes 02/22/17 Range/Units 14:39 Troponin I 0.02 (0-0.03) ng/mL Result diagrams: 02/23/17 06:01 02/24/17 06:23 Lab Results 02/22/17 02/22/17 02/22/17 Range/Units 14:39 14:39 14:39 WBC 8.2 (4.3-11.1) K/mcL RBC 3.74 L (4.19-5.50) M/mcL Hgb 10.3 L (12.9-16.9) g/dL Hct 32.9 L (37.5-50.1) % MCV 88.0 (83.0-100.0) fL MCH 27.5 L (28.0-33.3) pg MCHC 31.3 L (31.6-35.5) g/dL RDW 13.6 (11.5-14.5) % Plt Count 243 (140-400) K/mcL MPV 8.9 L (9.4-12.4) fL Immature Gran % 1.3 (0-4) % Seg Neutrophils % 78.5 % Lymphocytes % 12.2 % Monocytes % 5.4 % Eosinophils % 2.1 % Basophils % 0.5 % Neutrophils # 6.4 (1.6-8.9) K/mcL Lymphocytes # 1.0 (0.6-4.6) K/mcL Monocytes # 0.4 (0.0-1.3) K/mcL Eosinophils # 0.2 (0.0-0.6) K/mcL Basophils # 0.0 (0.0-0.2) K/mcL PT (9.4-12.1) Seconds INR APTT (26.0-36.0) Seconds Sodium 143 (136-145) mEq/L Potassium 4.5 (3.5-4.5) mEq/L Chloride 104 (98-109) mEq/L Carbon Dioxide 29 (19-29) mEq/L BUN 30 H (8-26) mg/dL Creatinine 1.33 H (0.72-1.25) mg/dL Est GFR ( Amer) > 60 (> 60) Est GFR (Non-Af Amer) 54 L (> 60) BUN/Creatinine Ratio 23 (6-26) Glucose 134 H (70-99) mg/dL Calculated Osmolality 304 H (280-300) Calcium 9.5 (8.6-10.8) mg/dL Troponin I 0.02 (0-0.03) ng/mL B-Natriuretic Peptide (0-100) pg/mL 02/22/17 02/22/17 Range/Units 14:39 14:39 WBC (4.3-11.1) K/mcL RBC (4.19-5.50) M/mcL Hgb (12.9-16.9) g/dL Hct (37.5-50.1) % MCV (83.0-100.0) fL MCH (28.0-33.3) pg MCHC (31.6-35.5) g/dL RDW (11.5-14.5) % Plt Count (140-400) K/mcL MPV (9.4-12.4) fL Immature Gran % (0-4) % Seg Neutrophils % % Lymphocytes % % Monocytes % % Eosinophils % % Basophils % % Neutrophils # (1.6-8.9) K/mcL Lymphocytes # (0.6-4.6) K/mcL Monocytes # (0.0-1.3) K/mcL Eosinophils # (0.0-0.6) K/mcL Basophils # (0.0-0.2) K/mcL PT 15.1 H (9.4-12.1) Seconds INR 1.4 APTT 32.5 (26.0-36.0) Seconds Sodium (136-145) mEq/L Potassium (3.5-4.5) mEq/L Chloride (98-109) mEq/L Carbon Dioxide (19-29) mEq/L BUN (8-26) mg/dL Creatinine (0.72-1.25) mg/dL Est GFR ( Amer) (> 60) Est GFR (Non-Af Amer) (> 60) BUN/Creatinine Ratio (6-26) Glucose (70-99) mg/dL Calculated Osmolality (280-300) Calcium (8.6-10.8) mg/dL Troponin I (0-0.03) ng/mL B-Natriuretic Peptide 648 H (0-100) pg/mL - Radiology Data Radiology results reviewed: Yes I reviewed the patient's radiology results. Chest X-Ray 02/22/17 15:36 IMPRESSION: Cardiomegaly with continued small effusion and pleural thickening left lower lobe. D/ / 02/22/2017 15:58:09 Roscoe London MD / angela Interpreting Provider: Roscoe London MD - EKG Data EKG attestation: Yes I reviewed and interpreted this EKG. EKG results narrative: EKG taken 02/22/2017 at 1412 hrs. shows a sinus rhythm with ventricular rate of 61 beats a minute no acute ST depressions or elevations in leads, shows right bundle branch block which shows upon previous EKG in 01/05/2017 she also shows a sinus bradycardia rhythm. Attestation Statement - Attestation Attestation: I personally interviewed and examined this patient and my medical decision- making was reviewed with the ED Resident Physician, Dr. Haskins. I agree with the documented findings, disposition and treatment plan as described except to the extent set forth below. Pt is a 66 yo wm, hx COPD with recent hospitalization for AECOPD and influenza. Pt returns today with grad worsening SOB, prod cough with yellow suputm and wheezing. Pt sent by his doctor for possible pneumonia. Pt with mild resp distress on arrival, with hypoxia on home O2, incr work of breathing, tachypnea and conversational dyspnea. Pt with inc O2 demand. No F/C, no post-tussive emesis or vomiting. No CP/press/heaviness, no back/flank pain, no abd pain. No LE edema. No leg pain/cramping. Pt with incr O2 by SC, and initiated aerosols, steroids and obtained CXR. Some mild improvement following aerosols, CXR showing persistant LLL small effusions and scarring. No new infiltrates. Pt with repeated aerosols. Still requiring incr O2 and ongoing pulm therapy. Will cover for HCAP pneumonia, due to recent hosp, pt still taking anti-viral meds. Will admit for further eval and mgmt.
--- NOTE | 2017-02-22 16:21 | Electrocardiograph Report ---
[place] [id number] Test Date: 2017-02-22 Pat Name: Edward Watters Department: 104 Room: Gender: M Manager Solution: KESHAWN : 1950 Requested By: Ada Wolf Order Number: [id number] Reading MD: Emerita Oneill Measurements Intervals [place] Rate: 61 P: 100 DE: 157 QRS: -69 QRSD: 133 T: 77 QT: 469 QTc: 471 Interpretive Statements SINUS RHYTHM RIGHT BUNDLE BRANCH BLOCK INFERIOR MYOCARDIAL INFARCTION, OF INDETERMINATE AGE ANTEROLATERAL MYOCARDIAL INFARCTION, PROBABLY OLD Electronically Signed On 02-22-2017 16:20:04 EDT by Emerita Oneill
[2017-02-22] MEDS ORDERED: Ipratropium/Albuterol Neb 3 ML IH ONE (16:34)
[2017-02-22] MEDS ORDERED: methylPREDNISolone 125 MG/2 ML VIAL IVP ONE (16:34)
[2017-02-22] MEDS ORDERED: Azithromycin 500 MG in D5% in Water 250 ML IVPB ONE (17:15)
[2017-02-22] MEDS: Cefepime HCl 2,000 MG in D5% in Water (Mini-Bag+) 100 ML IVPB SCH (18:17)
[2017-02-22] MEDS ORDERED: Vancomycin 2,000 MG in D5% in Water 500 ML IVPB SCH (19:00)
[2017-02-22] MEDS: Vancomycin 2,000 MG in D5% in Water 500 ML IVPB SCH (20:53)
[2017-02-22] MEDS ORDERED: Acetaminophen 325 MG TABLET PO PRN (22:05)
[2017-02-22] MEDS ORDERED: Naloxone 0.4 MG/ML INJ IVP PRN (22:05)
[2017-02-22] MEDS ORDERED: D5% in Water 1,000 ML IVC PRN (22:15)
[2017-02-22] MEDS ORDERED: *HR* Dextrose 50 % in Water (Syg) 50 ML SYRINGE IVP PRN (22:15)
[2017-02-22] MEDS ORDERED: Albuterol 2.5 MG/3 ML NEBULIZER IH PRN (22:15)
[2017-02-22] MEDS ORDERED: Dextrose Gel 15 GM PO PRN ×2 (22:15)
--- NOTE | 2017-02-22 22:19 | Internal Med History&Physical ---
Date of Encounter: 02/22/17 Time of Encounter: 22:18 Assessment and Plan (1) Acute on chronic diastolic (congestive) heart failure Current visit: No Status: Acute 1 patient has been expressing increasing shortness of breath as well as weight gain edema orthopnea. We will diurese patient 2 continue with oxygen titrated to maintain S PO2 greater than 92% 3 monitor intake and output daily weights 4 fluid restriction 5 low-sodium diet (2) CKD (chronic kidney disease) stage 3, GFR 30-59 ml/min Current visit: Yes Status: Acute 1. Patient's creatinine signs 1.8-2 is a 1.3 we will continue to monitor creatinine 2 we will avoid nephrotoxins 3 monitor intake and output daily weights (3) COPD (chronic obstructive pulmonary disease) Current visit: No Status: Chronic 1 she has history of COPD does not appear that he is an exacerbation no wheezing noted. We will continue with oxygen to maintain SPO2 greater than 92% 2 continue with bronchodilators Qualifiers: COPD type: unspecified COPD Qualified Code(s): J44.9 - Chronic obstructive pulmonary disease, unspecified (4) Diabetes mellitus Current visit: Yes Status: Acute 1 patient has history of diabetes he is on oral antidiabetics states his last A1c was a few days ago was 7.7. Accu-Cheks before meals at bedtime for sinus gout insulin 2 diabetic diet Qualifiers: Diabetes mellitus type: type 2 Diabetes mellitus complication status: with kidney complications Diabetes mellitus complication detail: with chronic kidney disease Diabetes mellitus mcc insulin use: without mcc use Chronic kidney disease stage: stage 3 (moderate) Qualified Code(s): E11.22 - Type 2 diabetes mellitus with diabetic chronic kidney disease; N18.3 - Chronic kidney disease, stage 3 (moderate) (5) DVT prophylaxis Current visit: No Status: Acute 1 [facility] Internal Medicine - H&P: HPI Chief complaint: sob Admitted From: Emergency Dept Plans for Post Hospital Care: Home History of present illness: Mr. Watters is a 66 year old male with medical history of COPD CAD CABG 15 years ago diabetes type 2 hyperlipidemia CHF diastolic CKd stage III. The patient had recently been admitted to this facility on 02/10/2017 and was treated for influenza B. The patient was discharged home and said that he was doing well and after 2 days he began to experience increasing shortness of breath. Patient is on home O2 as needed for COPD however he is found that he required oxygen at all times and had to increase from 2 L to 3l. He also has been experiencing orthopnea and has not been able to sleep at night only able to sleep for hours at a time waking up short of breath. He saw his noted increased swelling in his lower extremities as well as abdomen and is not been able to fix of his clothes. He denies any fevers nausea vomiting or diarrhea. He does have a moist nonproductive cough. He is been able to eat and drink he has been experiencing some constipation. He went to see his primary care physician who did obtain x-ray he called him today and advised him to go to the ER for evaluation concerning possible pneumonia. Patient presented to ER for evaluation. According to ER records patient presented wheezing, SPO2 90%. He was given breathing treatments: Sounds improved chest x-ray revealed left pleural effusion possible underlying pneumonia. Lab work revealed no leukocytosis creatinine is 1.33 with stable 698 troponins 0.02 he was given antibiotics and has been admitted for further workup and evaluation. Presently patient does not appear to be in respiratory distress he denies any chest pain or shortness of breath at this time. Lung sounds with faint expiratory wheeze scattered rhonchi. Patient has a moist nonproductive cough. Lower extremity edema bilaterally. He is hemodynamically stable at this time. I reviewed his case with 2 Past Med Surg Social Fam HX - Past Medical History Medical history: arthritis, asthma, atrial fibrillation, cardiomyopathy, CHF, COPD, coronary artery disease, diabetes, GERD, hyperlipidemia, hypertension, kidney stones, myocardial infarction, osteoporosis, renal disease, venous stasis , other Psychiatric history: anxiety, depression - Past Surgical History Surgical History: coronary bypass (CABG) - Social History Smoking Status: Former smoker Smokeless Tobacco Status: No Alcohol use: none Drug use: none - Family History Father Living Status: Cause of : aspiration pneumonia Hx Family Cancer: Yes Mother Living Status: Hx Family Cancer: Yes (lung) Internal Medicine - H&P: Meds Albuterol Sulfate [Albuterol Inhaler] 2 puff IH Q6HR PRN 04/18/16 [History] Aspirin Enteric Coated [Aspirin EC] 81 mg PO DAILY 04/18/16 [History] Budesonide/Formoterol 160/4.5 [Symbicort 160/4.5] 2 puff IH BIDR 04/18/16 [ History] FLUoxetine HCl [Prozac] 40 mg PO DAILY 04/18/16 [History] Famotidine [Pepcid] 20 mg PO BID 04/18/16 [History] GlipiZIDE [Glucotrol] 10 mg PO DAILY 04/18/16 [History] Hydralazine HCl 25 mg PO TID 04/18/16 [History] Isosorbide MONOnitrate (24 HR) [Imdur] 60 mg PO DAILY 04/18/16 [History] Nebivolol HCl [Bystolic] 20 mg PO BID 04/18/16 [History] Spironolactone [Aldactone] 50 mg PO DAILY 04/18/16 [History] Ferrous Sulfate 325 mg PO BID 01/04/17 [History] Melatonin/Pyridoxine HCl (B6) [Melatonin 1 mg Tablet] 1 mg PO HS 01/04/17 [ History] Multivit-Min/FA/Lycopen/Lutein [Centrum Silver Men Tablet] 1 tab PO DAILY [History] Polyethylene Glycol 3350 [MiraLAX] 17 gm PO DAILY PRN #0 powd.pack 01/06/17 [Rx] Bumetanide [Bumex] 1 mg PO DAILY #60 tablet 02/11/17 [Rx] Ipratropium/Albuterol Neb [Duoneb] 3 ml IH TID #60 inhsol 02/11/17 [Rx] Pantoprazole Sodium [Protonix] 40 mg PO DAILY 02/22/17 [History] Allergies No Known Allergies Allergy (Verified 02/09/17 22:49) All Systems PM: A 10-system review of systems was performed and is negative for pertinent findings except as documented above in the HPI. - Constitutional Constitutional: fatigue, weakness - Cardiovascular Cardiovascular ROS IM: dyspnea on exertion, edema, orthopnea, no chest pain, no diaphoresis, no dyspnea, no lightheadedness, no palpitations, no syncope - Respiratory Respiratory: cough, dyspnea, dyspnea on exertion, wheezing - Gastrointestinal Gastrointestinal: bloating, constipation, no abdominal pain, no diarrhea, no hematemesis, no hematochezia, no melena, no nausea, no vomiting - Musculoskeletal Musculoskeletal ROS IM: no numbness, no tingling - Neurological Neurological ROS: no confusion, no convulsions, no focal weakness, no numbness, no tingling, no tremor(s) - Constitutional Vitals: Temp Pulse Resp BP Pulse Ox 98.0 F 68 22 182/67 94 02/22/17 20:28 02/22/17 20:28 02/22/17 20:28 02/22/17 20:28 02/22/17 20:28 General appearance: Present: A&O X 3 - Head Head exam: Present: atraumatic, normocephalic - Eye Eye exam: Present: PERRL, conjuntiva pink, sclera anicteric Pupils: Present: PERRL - Neck Neck exam general surgery: Present: supple, trachea midline. Absent: lymphadenopathy - Respiratory Respiratory exam: Present: rhonchi, wheezes. Absent: accessory muscle use, rales - Cardiovascular Cardiovascular exam: Present: RRR, +S1, +S2. Absent: diastolic murmur, gallop, rubs, systolic murmur - GI/Abdominal GI/Abdominal exam: Present: normal bowel sounds, soft, no peritoneal signs. Absent: distended, tenderness - Extremities Exam Extremities exam: Present: pedal edema, warm, radial pulses palpable and symetrical. Absent: calf tenderness, cyanotic - Neurological Exam Neurological exam: Present: CN II-XII intact, oriented X3, no focal deficits. Absent: pronater drift, facial droop, speech deficit - Skin Skin exam: Present: dry, intact Internal Med - H&P Results - Labs CBC & Chem 7: 02/22/17 14:39 02/22/17 14:39 - EKG Data EKG shows normal: sinus rhythm - EKG Data When compared to previous EKG: there is no significant change EKG comments: 02/22/17 22:31 RBB - Diagnostic Studies Other Images Additional comments: Chest X-Ray 02/22/17 15:36 IMPRESSION: Cardiomegaly with continued small effusion and pleural thickening left lower lobe. D/ / 02/22/2017 15:58:09 Roscoe London MD / angela Interpreting Provider: Roscoe London MD
[2017-02-22] MEDS: Ipratropium/Albuterol Neb 3 ML IH SCH (23:08)
[2017-02-22] MEDS: Budesonide/Formoterol 160/4.5 MDI IH SCH (23:08)
[2017-02-22] MEDS: Furosemide 40 MG/4 ML VIAL IVP SCH (23:27)
[2017-02-23] MEDS: Ipratropium/Albuterol Neb 3 ML IH SCH ×4 (05:01→22:51)
[2017-02-23] MEDS: *HR* Enoxaparin 40 MG/0.4 ML SYRINGE SQ SCH (06:42)
[2017-02-23] MEDS: Famotidine 20 MG TABLET PO SCH ×2 (06:42→15:04)
[2017-02-23 06:55] LABS: BUN/Creatinine Ratio 25 (6-26); Blood Urea Nitrogen 32 mg/dL (8-26); Calcium 8.8 mg/dL (8.6-10.8); Carbon Dioxide 29 mEq/L (19-29); Chloride 104 mEq/L (98-109); Glucose 287 mg/dL (70-99); Osmolality,Calculated 309 (280-300); Potassium 4.6 mEq/L (3.5-4.5); Sodium 141 mEq/L (136-145); eGFR For African Americans > 60 (> 60); eGFR For Non-African Americans 56 (> 60)
[2017-02-23 06:56] LABS: Hemoglobin 9.4 g/dL (12.9-16.9); Mean Corpuscular HGB Conc 31.3 g/dL (31.6-35.5); Mean Corpuscular Hemoglobin 26.9 pg (28.0-33.3); Mean Platelet Volume 9.3 fL (9.4-12.4); Platelet Count 243 K/mcL (140-400); Red Blood Count 3.49 M/mcL (4.19-5.50); Red Cell Distribution Width 13.5 % (11.5-14.5); Segmented Neutrophils % 90.3 %
[2017-02-23 06:57] LABS: Basophils % 0.1 %; Immature Granulocytes % 1.4 % (0-4); Lymphocytes # 0.5 K/mcL (0.6-4.6); Lymphocytes % 6.3 %; Monocytes # 0.1 K/mcL (0.0-1.3); Monocytes % 1.9 %; Neutrophils # 6.6 K/mcL (1.6-8.9)
[2017-02-23] MEDS ORDERED: Aminoglycoside Consult 1 EACH MC ONE (08:26)
[2017-02-23] MEDS: Insulin LISPRO 300 UNITS/3 ML VIAL SQ SCH ×4 (09:38→21:59)
[2017-02-23] MEDS: Furosemide 40 MG/4 ML VIAL IVP SCH (09:39)
[2017-02-23] MEDS: hydrALAZINE 25 MG TABLET PO SCH ×3 (09:41→21:59)
[2017-02-23] MEDS: Isosorbide MONOnitrate (24 HR) 60 MG TAB.ER.24H PO SCH (09:41)
[2017-02-23] MEDS: FLUoxetine 20 MG CAPSULE PO SCH (09:41)
[2017-02-23] MEDS: Multivit/Ca/Min/Fe/FA 1 TAB TABLET PO SCH (09:42)
[2017-02-23] MEDS: Aspirin Enteric Coated 81 MG Tablet PO SCH (09:42)
[2017-02-23] MEDS: Vancomycin 2,000 MG in D5% in Water 500 ML IVPB SCH ×2 (10:19→21:58)
[2017-02-23] MEDS: Budesonide/Formoterol 160/4.5 MDI IH SCH ×2 (11:21→22:52)
[2017-02-23] MEDS: Cefepime HCl 2,000 MG in D5% in Water (Mini-Bag+) 100 ML IVPB SCH (17:27)
[2017-02-23] MEDS: Bumetanide 1 MG/4 ML VIAL IVP SCH (17:30)
[2017-02-23] MEDS: Melatonin 3 MG TABLET PO SCH (21:59)
[2017-02-24] MEDS: Cefepime HCl 2,000 MG in D5% in Water (Mini-Bag+) 100 ML IVPB SCH ×3 (02:22→17:08)
[2017-02-24] MEDS: Ipratropium/Albuterol Neb 3 ML IH SCH ×4 (03:56→22:16)
[2017-02-24] MEDS: *HR* Enoxaparin 40 MG/0.4 ML SYRINGE SQ SCH (06:04)
[2017-02-24 07:36] LABS: BUN/Creatinine Ratio 26 (6-26); Blood Urea Nitrogen 32 mg/dL (8-26); Calcium 8.8 mg/dL (8.6-10.8); Carbon Dioxide 26 mEq/L (19-29); Chloride 103 mEq/L (98-109); Glucose 161 mg/dL (70-99); Magnesium 1.9 mg/dL (1.6-2.6); Osmolality,Calculated 300 (280-300); Potassium 4.3 mEq/L (3.5-4.5); Sodium 140 mEq/L (136-145); eGFR For African Americans > 60 (> 60); eGFR For Non-African Americans 59 (> 60)
[2017-02-24] MEDS: Insulin LISPRO 300 UNITS/3 ML VIAL SQ SCH ×4 (08:10→22:10)
[2017-02-24] MEDS: Bumetanide 1 MG/4 ML VIAL IVP SCH ×2 (08:11→15:33)
[2017-02-24] MEDS: Multivit/Ca/Min/Fe/FA 1 TAB TABLET PO SCH (08:12)
[2017-02-24] MEDS: FLUoxetine 20 MG CAPSULE PO SCH (08:12)
[2017-02-24] MEDS: Famotidine 20 MG TABLET PO SCH ×2 (08:13→15:34)
[2017-02-24] MEDS: Isosorbide MONOnitrate (24 HR) 60 MG TAB.ER.24H PO SCH (08:13)
[2017-02-24] MEDS: Aspirin Enteric Coated 81 MG Tablet PO SCH (08:14)
[2017-02-24] MEDS: hydrALAZINE 25 MG TABLET PO SCH ×3 (08:15→22:10)
[2017-02-24] MEDS: Vancomycin 2,000 MG in D5% in Water 500 ML IVPB SCH (08:21)
[2017-02-24] MEDS: Budesonide/Formoterol 160/4.5 MDI IH SCH ×2 (10:40→22:16)
--- NOTE | 2017-02-24 12:38 | Internal Med Progress Note ---
Date of Encounter: 02/24/17 Time of Encounter: 12:35 - Assessment and plan (1) Acute on chronic diastolic CHF (congestive heart failure), NYHA class 4 Status: Acute Assessment and plan: likely due to reduction in dose of diuretics along with recent hydration for Influenza treatment. Urine output probably incompletely documented; will increase dose of IV Bumex and continue fluid restriction, daily weights, strict urine output monitoring; supplemental O2, beta-awilda and supportive care; high risk for complications; Patient has been started on IV antibiotics for possible underlying HCA-Pneumonia ; will hold Vancomycin; blood cultures from [facility] not resulted positive so far; (2) CAD (coronary artery disease) Status: Chronic Qualifiers: Coronary Disease-Associated Artery/Lesion type: [place] artery [place] vs. transplanted heart: [place] heart Associated angina: without angina Qualified Code(s): I25.10 - Atherosclerotic heart disease of [place] coronary artery without angina pectoris (3) Morbid obesity with BMI of 60.0-69.9, adult Status: Chronic (4) Hypothyroidism (acquired) Status: Chronic (5) BPH (benign prostatic hyperplasia) Status: Chronic Qualifiers: Prostatic enlargement morphology: unspecified morphology Lower urinary tract symptom presence: presence of symptoms unspecified Qualified Code(s): N40.0 - Benign prostatic hyperplasia without lower urinary tract symptoms (6) Hypertension Status: Chronic Qualifiers: Hypertension type: essential hypertension Qualified Code(s): I10 - Essential (primary) hypertension (7) COPD (chronic obstructive pulmonary disease) Status: Chronic Qualifiers: COPD type: unspecified COPD Qualified Code(s): J44.9 - Chronic obstructive pulmonary disease, unspecified (8) Diabetes mellitus Status: Chronic Qualifiers: Diabetes mellitus type: type 2 Diabetes mellitus complication status: with kidney complications Diabetes mellitus complication detail: with chronic kidney disease Diabetes mellitus fdc insulin use: without intermodal dispatcher use Chronic kidney disease stage: stage 3 (moderate) Qualified Code(s): E11.22 - Type 2 diabetes mellitus with diabetic chronic kidney disease; N18.3 - Chronic kidney disease, stage 3 (moderate) (9) CKD (chronic kidney disease) stage 3, GFR 30-59 ml/min Status: Chronic - Subjective Interval history: Feels slightly better but still has significant exertional dyspnea and leg swelling; O2 requirements slightly improved; no chest pain, dizziness, palpitations; - Constitutional Vitals: Temp Pulse Resp BP Pulse Ox 98.2 F 67 16 158/72 90 02/24/17 11:08 02/24/17 11:08 02/24/17 11:08 02/24/17 11:08 02/24/17 11:08 General appearance: Present: A&O X 3, morbidly obese, answers questions appropriately - Neck Neck exam general surgery: Present: supple, trachea midline. Absent: lymphadenopathy Additional comments: JVD+ elevated - Respiratory Respiratory exam: Present: rales (left basal faint crackles), rhonchi (left basal rhonchi). Absent: accessory muscle use, wheezes - Cardiovascular Cardiovascular exam: Present: RRR, +S1, +S2. Absent: diastolic murmur, gallop, rubs, systolic murmur - GI/Abdominal GI/Abdominal exam: Present: normal bowel sounds, soft (obese), no peritoneal signs. Absent: distended, tenderness - Extremities Exam Extremities exam: Present: full ROM, pedal edema (3+ pitting pedal edema), warm , radial pulses palpable and symetrical. Absent: calf tenderness, cyanotic - Neurological Exam Neurological exam: Present: CN II-XII intact, oriented X3, no focal deficits. Absent: pronater drift, facial droop, speech deficit Internal Medicine: Result - Labs CBC & Chem 7: 02/27/17 03:47 02/27/17 03:47 Labs: BMP 02/24/17 06:23 Sodium 140 Potassium 4.3 Chloride 103 Carbon Dioxide 26 BUN 32 H Creatinine 1.23 Glucose 161 H Calcium 8.8 - ABG Interpretation ABG results: PT/INR, D-dimer PT 15.1 Seconds (9.4-12.1) H 02/22/17 14:39 Consult Discharge Plan - Plan Instructions: Heart Failure (DC), Chronic Obstructive Pulmonary Disease (DC) Referrals: Livia Quiñonez [Primary Care Provider] - 03/04/17 3:15 pm (Please follow up as schedule...) Prescriptions: HydrALAZINE 50 mg PO TID 30 Days Levofloxacin [Levaquin] 750 mg PO DAILY 1 Days
[2017-02-24] MEDS: Melatonin 3 MG TABLET PO SCH (22:10)
[2017-02-25] MEDS: Cefepime HCl 2,000 MG in D5% in Water (Mini-Bag+) 100 ML IVPB SCH ×3 (03:07→17:35)
[2017-02-25] MEDS: Ipratropium/Albuterol Neb 3 ML IH SCH ×3 (04:46→15:36)
[2017-02-25 05:42] LABS: BUN/Creatinine Ratio 24 (6-26); Blood Urea Nitrogen 32 mg/dL (8-26); Calcium 9.4 mg/dL (8.6-10.8); Carbon Dioxide 29 mEq/L (19-29); Chloride 102 mEq/L (98-109); Glucose 156 mg/dL (70-99); Magnesium 1.9 mg/dL (1.6-2.6); Osmolality,Calculated 302 (280-300); Potassium 4.4 mEq/L (3.5-4.5); Sodium 141 mEq/L (136-145); eGFR For African Americans > 60 (> 60); eGFR For Non-African Americans 54 (> 60)
[2017-02-25] MEDS: *HR* Enoxaparin 40 MG/0.4 ML SYRINGE SQ SCH (05:58)
[2017-02-25] MEDS: Insulin LISPRO 300 UNITS/3 ML VIAL SQ SCH ×4 (08:34→21:21)
[2017-02-25] MEDS: FLUoxetine 20 MG CAPSULE PO SCH (08:36)
[2017-02-25] MEDS: Multivit/Ca/Min/Fe/FA 1 TAB TABLET PO SCH (08:36)
[2017-02-25] MEDS: Isosorbide MONOnitrate (24 HR) 60 MG TAB.ER.24H PO SCH (08:36)
[2017-02-25] MEDS: Famotidine 20 MG TABLET PO SCH ×2 (08:36→15:39)
[2017-02-25] MEDS: hydrALAZINE 25 MG TABLET PO SCH ×3 (08:37→21:21)
[2017-02-25] MEDS: Aspirin Enteric Coated 81 MG Tablet PO SCH (08:37)
[2017-02-25] MEDS: Bumetanide 1 MG/4 ML VIAL IVP SCH ×2 (08:38→15:40)
[2017-02-25] MEDS: Budesonide/Formoterol 160/4.5 MDI IH SCH (10:28)
[2017-02-25] MEDS: Melatonin 3 MG TABLET PO SCH (21:19)
[2017-02-26] MEDS: Ipratropium/Albuterol Neb 3 ML IH SCH ×5 (00:10→22:53)
[2017-02-26] MEDS: Budesonide/Formoterol 160/4.5 MDI IH SCH ×3 (00:10→22:52)
[2017-02-26] MEDS: Cefepime HCl 2,000 MG in D5% in Water (Mini-Bag+) 100 ML IVPB SCH ×2 (02:22→11:19)
[2017-02-26 05:09] LABS: BUN/Creatinine Ratio 25 (6-26); Blood Urea Nitrogen 31 mg/dL (8-26); Calcium 9.2 mg/dL (8.6-10.8); Carbon Dioxide 27 mEq/L (19-29); Chloride 102 mEq/L (98-109); Glucose 149 mg/dL (70-99); Osmolality,Calculated 299 (280-300); Potassium 4.4 mEq/L (3.5-4.5); Sodium 140 mEq/L (136-145); eGFR For African Americans > 60 (> 60); eGFR For Non-African Americans 60 (> 60)
[2017-02-26] MEDS: *HR* Enoxaparin 40 MG/0.4 ML SYRINGE SQ SCH (06:02)
[2017-02-26] MEDS: Insulin LISPRO 300 UNITS/3 ML VIAL SQ SCH ×3 (07:48→16:52)
[2017-02-26] MEDS: Bumetanide 1 MG/4 ML VIAL IVP SCH ×2 (07:49→16:53)
[2017-02-26] MEDS: FLUoxetine 20 MG CAPSULE PO SCH (07:49)
[2017-02-26] MEDS: Isosorbide MONOnitrate (24 HR) 60 MG TAB.ER.24H PO SCH (07:49)
[2017-02-26] MEDS: Famotidine 20 MG TABLET PO SCH ×2 (07:50→16:53)
[2017-02-26] MEDS: hydrALAZINE 25 MG TABLET PO SCH ×2 (07:50→16:54)
[2017-02-26] MEDS: Aspirin Enteric Coated 81 MG Tablet PO SCH (07:50)
[2017-02-26] MEDS: Multivit/Ca/Min/Fe/FA 1 TAB TABLET PO SCH (07:50)
[2017-02-26] MEDS ORDERED: hydrALAZINE 25 MG TABLET PO SCH (08:41)
[2017-02-26] MEDS ORDERED: hydrALAZINE 25 MG TABLET PO ONE (09:06)
[2017-02-26] MEDS: levoFLOXacin 500 MG TABLET PO SCH (12:55)
--- NOTE | 2017-02-26 15:07 | Internal Med Progress Note ---
<Kody Mojica - Last Filed: 02/26/17 15:04> Date of Encounter: 02/26/17 Time of Encounter: 09:30 - Assessment and plan (1) Acute exacerbation of congestive heart failure Current Visit: Yes Status: Acute Assessment and plan: Patient is near euvolemia on exam. He states he is at his normal weight today. continue with fluid restriction and diuretics. Diastolic/ normal EF on echocardiogram from december. Decreased risk factors. Will work on getting his HTN to goal. (2) CAD (coronary artery disease) Current Visit: Yes Status: Acute Assessment and plan: continue ASA. Not on on home statin. We will discuss with patient and start on Statin if there is no contraindication. (3) Accelerated hypertension Current Visit: Yes Status: Acute Assessment and plan: I will increase his hydralazine today. (4) Acute and chronic respiratory failure Current Visit: Yes Status: Acute (5) Pneumonia Current Visit: Yes Status: Acute Assessment and plan: Patient has had 3 days of Cefepime. we will deescalate to levofloxacin. (6) DVT prophylaxis Current Visit: Yes Status: Acute Assessment and plan: on SQ lovenox. - Subjective Interval history: No major events overnight. Patient states that he is breathing much easier. he states that he feells that he is close to his baseline and inquires as to when he can be discharged. He still has some exertional dyspnea. he denies any difficulty with bowel or bladder functions. He has no further complaints or concerns at this time. - Constitutional Vitals: Temp Pulse Resp BP Pulse Ox 98.2 F 55 18 161/70 93 02/26/17 11:01 02/26/17 11:01 02/26/17 11:01 02/26/17 11:01 02/26/17 11:01 General appearance: Present: morbidly obese, answers questions appropriately Exam: General: This is a well-developed well-nourished 66-year-old male who is alert and orientated to person place time and situation. Sodium that appears to be comfortable and in no acute distress at this time. HEENT: Normocephalic and atraumatic anicteric sclera, moist mucous membranes, neck supple without mass or thyromegaly, no JVD. Heart: Regular rate and rhythm without murmurs rubs or gallops. Lungs: This is some mild scant expiratory wheezes otherwise lungs are clear to auscultation. He has a normal effort of breathing speaks in full sentences. Abdomen: The abdomen is obese, nondistended, nontender palpation. Musculoskeletal: Grossly normal for age. ' Respiratory as noted. Extremities: He does have some mild pedal edema 1+ to the middle of the tibia bilaterally. Integument: No rashes or lesions noted. Does have some scarring and chronic venous stasis changes of the extremities bilaterally. Internal Medicine: Result - Labs CBC & Chem 7: 02/23/17 06:01 02/26/17 03:18 Labs: BMP 02/26/17 03:18 Sodium 140 Potassium 4.4 Chloride 102 Carbon Dioxide 27 BUN 31 H Creatinine 1.22 Glucose 149 H Calcium 9.2 - ABG Interpretation ABG results: PT/INR, D-dimer PT 15.1 Seconds (9.4-12.1) H 02/22/17 14:39 Consult Discharge Plan - Plan Referrals: Livia Quiñonez [Primary Care Provider] - 03/04/17 3:15 pm (Please follow up as schedule...) <Marin Bui - Last Filed: 02/26/17 17:01> Date of Encounter: 02/26/17 - Constitutional Vitals: Temp Pulse Resp BP Pulse Ox 97.5 F L 59 18 160/71 96 02/26/17 15:57 02/26/17 15:57 02/26/17 15:57 02/26/17 15:57 02/26/17 15:57 Internal Medicine: Result - Labs CBC & Chem 7: 02/23/17 06:01 02/26/17 03:18 Labs: BMP 02/26/17 03:18 Sodium 140 Potassium 4.4 Chloride 102 Carbon Dioxide 27 BUN 31 H Creatinine 1.22 Glucose 149 H Calcium 9.2 - ABG Interpretation ABG results: PT/INR, D-dimer PT 15.1 Seconds (9.4-12.1) H 02/22/17 14:39 - Attending Attestation I examined this patient and my medical decision-making was reviewed with the MEDICAL CLAIMS MANAGER/PA/Advanced Practice Nurse/Resident Physician. I agree with the documented findings, disposition and treatment plan as described except to the extent set forth below. D/C maxipime, switch to levaquin. Posible discharge tomorrow if stable.
[2017-02-27] MEDS: Melatonin 3 MG TABLET PO SCH (00:03)
[2017-02-27] MEDS: hydrALAZINE 25 MG TABLET PO SCH ×3 (00:04→14:05)
[2017-02-27] MEDS: Ipratropium/Albuterol Neb 3 ML IH SCH ×2 (04:16→10:43)
[2017-02-27 04:50] LABS: Basophils % 0.7 %; Eosinophils # 0.2 K/mcL (0.0-0.6); Eosinophils % 3.6 %; Hemoglobin 10.3 g/dL (12.9-16.9); Immature Granulocytes % 0.8 % (0-4); Lymphocytes # 1.1 K/mcL (0.6-4.6); Lymphocytes % 18.8 %; Mean Corpuscular HGB Conc 34.3 g/dL (31.6-35.5); Mean Corpuscular Hemoglobin 30.3 pg (28.0-33.3); Mean Corpuscular Volume 88.2 fL (83.0-100.0); Mean Platelet Volume 9.4 fL (9.4-12.4); Monocytes # 0.5 K/mcL (0.0-1.3); Monocytes % 8.1 %; Neutrophils # 4.1 K/mcL (1.6-8.9); Platelet Count 224 K/mcL (140-400)
[2017-02-27 05:14] LABS: BUN/Creatinine Ratio 23 (6-26); Blood Urea Nitrogen 31 mg/dL (8-26); Calcium 9.5 mg/dL (8.6-10.8); Carbon Dioxide 29 mEq/L (19-29); Chloride 100 mEq/L (98-109); Glucose 135 mg/dL (70-99); Magnesium 1.6 mg/dL (1.6-2.6); Osmolality,Calculated 301 (280-300); Sodium 141 mEq/L (136-145); eGFR For African Americans > 60 (> 60); eGFR For Non-African Americans 54 (> 60)
[2017-02-27] MEDS: *HR* Enoxaparin 40 MG/0.4 ML SYRINGE SQ SCH (05:44)
[2017-02-27] MEDS: Famotidine 20 MG TABLET PO SCH (05:45)
[2017-02-27] MEDS: Insulin LISPRO 300 UNITS/3 ML VIAL SQ SCH ×3 (08:37→11:53)
[2017-02-27] MEDS: FLUoxetine 20 MG CAPSULE PO SCH (08:43)
[2017-02-27] MEDS: Multivit/Ca/Min/Fe/FA 1 TAB TABLET PO SCH (08:43)
[2017-02-27] MEDS: Aspirin Enteric Coated 81 MG Tablet PO SCH (08:43)
[2017-02-27] MEDS: Isosorbide MONOnitrate (24 HR) 60 MG TAB.ER.24H PO SCH (08:43)
[2017-02-27] MEDS: Bumetanide 1 MG/4 ML VIAL IVP SCH (08:44)
[2017-02-27] MEDS: levoFLOXacin 500 MG TABLET PO SCH (08:44)
[2017-02-27] MEDS ORDERED: Insulin DETEMIR 100 UNIT/ML X5UNITS SQ SCH (09:00)
[2017-02-27] MEDS: Budesonide/Formoterol 160/4.5 MDI IH SCH (10:43)
--- NOTE | 2017-02-27 10:57 | Discharge Summary ---
<Kody Mojica - Last Filed: 02/27/17 11:05> Date of Encounter: 02/27/17 Time of Encounter: 10:52 - Discharge Diagnosis (1) Acute exacerbation of congestive heart failure Priority: Primary Status: Acute Qualifiers: Congestive heart failure type: diastolic Qualified Code(s): I50.33 - Acute on chronic diastolic (congestive) heart failure (2) CAD (coronary artery disease) Priority: Secondary Status: Acute Qualifiers: Qualified Code(s): I25.10 - Atherosclerotic heart disease of [place] coronary artery without angina pectoris (3) Accelerated hypertension Priority: Secondary Status: Acute (4) Acute and chronic respiratory failure Priority: Secondary Status: Acute Qualifiers: Qualified Code(s): J96.20 - Acute and chronic respiratory failure, unspecified whether with hypoxia or hypercapnia (5) Pneumonia Priority: Secondary Status: Acute Qualifiers: Qualified Code(s): J18.9 - Pneumonia, unspecified organism (6) DVT prophylaxis Priority: Secondary Status: Acute - Discharge Medications Prescriptions: HydrALAZINE 50 mg PO TID 30 Days Levofloxacin [Levaquin] 750 mg PO DAILY 1 Days Home Medications: Albuterol Sulfate [Albuterol Inhaler] 2 puff IH Q6HR PRN 04/18/16 [History] Aspirin Enteric Coated [Aspirin EC] 81 mg PO DAILY 04/18/16 [History] Budesonide/Formoterol 160/4.5 [Symbicort 160/4.5] 2 puff IH BIDR 04/18/16 [ History] FLUoxetine HCl [Prozac] 40 mg PO DAILY 04/18/16 [History] Famotidine [Pepcid] 20 mg PO BID 04/18/16 [History] GlipiZIDE [Glucotrol] 10 mg PO DAILY 04/18/16 [History] Isosorbide MONOnitrate (24 HR) [Imdur] 60 mg PO DAILY 04/18/16 [History] Nebivolol HCl [Bystolic] 20 mg PO BID 04/18/16 [History] Spironolactone [Aldactone] 50 mg PO DAILY 04/18/16 [History] Ferrous Sulfate 325 mg PO BID 01/04/17 [History] Melatonin/Pyridoxine HCl (B6) [Melatonin 1 mg Tablet] 1 mg PO HS 01/04/17 [ History] Multivit-Min/FA/Lycopen/Lutein [Centrum Silver Men Tablet] 1 tab PO DAILY [History] Polyethylene Glycol 3350 [MiraLAX] 17 gm PO DAILY PRN #0 powd.pack 01/06/17 [Rx] Ipratropium/Albuterol Neb [Duoneb] 3 ml IH TID #60 inhsol 02/11/17 [Rx] Pantoprazole Sodium [Protonix] 40 mg PO DAILY 02/22/17 [History] Bumetanide [Bumex] 4 mg PO DAILY #30 tablet 02/27/17 [Rx] HydrALAZINE 50 mg PO TID 30 Days 02/27/17 [Rx] Levofloxacin [Levaquin] 750 mg PO DAILY 1 Days 02/27/17 [Rx] Allergies/Adverse Reactions: Allergies No Known Allergies Allergy (Verified 02/09/17 22:49) Date of admission: 02/22/17 22:05 Primary care physician: Livia Quiñonez Discharging clinician: Kody Mojica Anticipated date of discharge: 02/27/17 - Patient Status Disposition: Home, Self-Care Condition: Fair Functional capacity at discharge: independent ambulation Overall status at discharge: patient is progressing back to baseline - Discharge Instructions Instructions: Heart Failure (DC), Chronic Obstructive Pulmonary Disease (DC) Follow Up With: Livia Quiñonez [Primary Care Provider] - 03/04/17 3:15 pm (Please follow up as schedule...) - Diet and Activity Activity: increase activity as tolerated Diet: diabetic diet, low fat, low cholesterol, low salt diet Hospital course: Mr. Watters is a 66 year old male who was admitted to the hospital with Acute on chronic Diastolic heart failure and Community acquired pneumonia. He was treated with IV cefepime and transition to Levaquin. He has been afebrile and has a normal white count. He was also diuresed and is back down to his stated normal weight which is 305 pounds. Additionally he appears to be euvolemic on exam. He has home oxygen are he set up. Today his exam was unremarkable his vital signs were within normal limits and there were no major lab abnormalities. We will discharge him today after he receives his dose of Levaquin and give him 1 additional day to complete a course for community acquired pneumonia. Additionally we have adjusted his diuretics and increasing his Bumex 4 mg per day. We also increased his hydralazine to 50 mg 3 times a day. He does have diastolic heart failure symptoms did stress the importance of fluid restriction, blood pressure control as well as treating his sleep apnea. Will discharge today with follow-up to his PCP in 7-10 days. The patient does voice back his understanding and agreement to the above plan. - Time Spent with Patient Total time spent providing and/or coordinating discharge services: Greater than 30 minutes (I spent approximately 38 minutes discharging this patient.) - Constitutional Vitals: Temp Pulse Resp BP Pulse Ox 97.4 F L 57 18 162/76 95 02/27/17 07:48 02/27/17 07:48 02/27/17 10:43 02/27/17 07:48 02/27/17 10:43 General appearance: Present: A&O X 3, morbidly obese, answers questions appropriately - Head Head exam: Present: atraumatic, normocephalic - Eye Eye exam: Present: PERRL, conjuntiva pink, sclera anicteric Pupils: Present: PERRL - Neck Neck exam general surgery: Present: supple, trachea midline. Absent: lymphadenopathy - Respiratory Respiratory exam: Present: CTAB. Absent: accessory muscle use, rales, rhonchi, wheezes - Cardiovascular Cardiovascular exam: Present: RRR, +S1, +S2. Absent: diastolic murmur, gallop, rubs, systolic murmur - GI/Abdominal GI/Abdominal exam: Present: normal bowel sounds, soft, no peritoneal signs. Absent: distended, tenderness - Extremities Exam Extremities exam: Present: warm, radial pulses palpable and symetrical. Absent : calf tenderness, cyanotic, pedal edema Additional comments: chronic venous stasis changes of the bilateral lower extremities. - Skin Skin exam: Present: dry, intact <Marin Bui - Last Filed: 02/27/17 15:11> Date of Encounter: 02/27/17 Date of admission: 02/22/17 22:05 [facility] care physician: [facility] course: Mr. Watters is a 66 year old male - Time Spent with Patient Total time spent providing and/or coordinating discharge services: - Constitutional Vitals: Temp Pulse Resp BP Pulse Ox 98.2 F 58 16 187/76 96 02/27/17 11:40 02/27/17 11:40 02/27/17 11:40 02/27/17 11:40 02/27/17 11:40 - Attending Attestation I examined this patient and my medical decision-making was reviewed with the BOWLING BALL FINISHER/PA/Advanced Practice Nurse/Resident Physician. I agree with the documented findings, disposition and treatment plan as described except to the extent set forth below. D/C today. Complete levaquin po. Fluid restriction and CHF management. Resume meds for BP control. Follow up with PCP. D/W patient.
[2017-02-27 11:43] VITALS: BP 187/76
--- NOTE | 2017-02-28 11:51 | Internal Med Progress Note ---
Date of Encounter: 02/23/17 Time of Encounter: 12:00 - Assessment and plan (1) Acute on chronic diastolic CHF (congestive heart failure), NYHA class 4 Status: Acute Assessment and plan: likely due to reduction in dose of diuretics along with recent hydration for Influenza treatment. Start IV diuresis with Bumex along with fluid restriction, daily weights, strict urine output monitoring; supplemental O2, beta-awilda and supportive care; high risk for complications; (2) Pneumonia Status: Acute Assessment and plan: Blood cultures have been sent from ER at [place] f/up; patient clinically does not appear septic; no fever or leukocytosis; continue broad spectrum IV antibiotics and supplemental O2; Qualifiers: Pneumonia type: due to unspecified organism Laterality: bilateral Lung location: unspecified part of lung Qualified Code(s): J18.9 - Pneumonia, unspecified organism (3) CAD (coronary artery disease) Status: Chronic Qualifiers: Coronary Disease-Associated Artery/Lesion type: [place] artery [place] vs. transplanted heart: [place] heart Associated angina: without angina Qualified Code(s): I25.10 - Atherosclerotic heart disease of [place] coronary artery without angina pectoris (4) Morbid obesity with BMI of 60.0-69.9, adult Status: Chronic (5) Hypothyroidism (acquired) Status: Chronic (6) BPH (benign prostatic hyperplasia) Status: Chronic Qualifiers: Prostatic enlargement morphology: unspecified morphology Lower urinary tract symptom presence: presence of symptoms unspecified Qualified Code(s): N40.0 - Benign prostatic hyperplasia without lower urinary tract symptoms (7) Hypertension Status: Chronic Assessment and plan: BP well-controlled; continue home meds; Qualifiers: Hypertension type: essential hypertension Qualified Code(s): I10 - Essential (primary) hypertension (8) COPD (chronic obstructive pulmonary disease) Status: Chronic Qualifiers: COPD type: unspecified COPD Qualified Code(s): J44.9 - Chronic obstructive pulmonary disease, unspecified (9) Diabetes mellitus Status: Chronic Qualifiers: Diabetes mellitus type: type 2 Diabetes mellitus complication status: with kidney complications Diabetes mellitus complication detail: with chronic kidney disease 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 Chronic kidney disease stage: stage 3 (moderate) Qualified Code(s): E11.22 - Type 2 diabetes mellitus with diabetic chronic kidney disease; N18.3 - Chronic kidney disease, stage 3 (moderate) (10) CKD (chronic kidney disease) stage 3, GFR 30-59 ml/min Status: Chronic Assessment and plan: continue IV Bumex and monitor serum creatinine closely; - Subjective Interval history: Noted to have significant shortness of breath, after speaking long sentences, long with anasarca, facial puffiness and leg swelling; no fever, cough, has weakness, fatigue; - Constitutional Vitals: Temp Pulse Resp BP Pulse Ox 98.2 F 58 16 187/76 96 02/27/17 11:40 02/27/17 11:40 02/27/17 11:40 02/27/17 11:40 02/27/17 11:40 General appearance: Present: mild distress, A&O X 3, morbidly obese (anasarca+) , answers questions appropriately - Respiratory Respiratory exam: Present: rales (B/L bibasal crackles+). Absent: accessory muscle use, rhonchi, wheezes - Cardiovascular Cardiovascular exam: Present: RRR, +S1, +S2. Absent: diastolic murmur, gallop, rubs, systolic murmur - GI/Abdominal GI/Abdominal exam: Present: normal bowel sounds, soft (obese), no peritoneal signs. Absent: distended, tenderness - Extremities Exam Extremities exam: Present: full ROM, pedal edema (3+ pitting pedal edema B/L), warm, radial pulses palpable and symetrical. Absent: calf tenderness, cyanotic Internal Medicine: Result - Labs CBC & Chem 7: 02/27/17 03:47 02/27/17 03:47 - ABG Interpretation ABG results: PT/INR, D-dimer PT 15.1 Seconds (9.4-12.1) H 02/22/17 14:39 Consult Discharge Plan - Plan Instructions: Heart Failure (DC), Chronic Obstructive Pulmonary Disease (DC) Referrals: Livia Quiñonez [Primary Care Provider] - 03/04/17 3:15 pm (Please follow up as schedule...) Prescriptions: HydrALAZINE 50 mg PO TID 30 Days Levofloxacin [Levaquin] 750 mg PO DAILY 1 Days
--- NOTE | 2017-03-04 14:13 | Internal Med Progress Note ---
Date of Encounter: 02/25/17 Time of Encounter: 11:00 - Assessment and plan (1) Pneumonia Status: Suspected Assessment and plan: Possible infection on imaging; continue IV antibiotics; blood cultures have not been reported positive from referral ER, will try to obtain records; improving O2 requirements; continue supportive care; Qualifiers: Pneumonia type: due to unspecified organism Laterality: bilateral Lung location: unspecified part of lung Qualified Code(s): J18.9 - Pneumonia, unspecified organism (2) Acute on chronic diastolic CHF (congestive heart failure), NYHA class 4 Status: Acute Assessment and plan: improving slowly; continue current management with IV Bumex, fluid restriction, urine output monitoring. Continue beta-awilda; (3) CAD (coronary artery disease) Status: Chronic Qualifiers: Coronary Disease-Associated Artery/Lesion type: [place] artery [place] vs. transplanted heart: [place] heart Associated angina: without angina Qualified Code(s): I25.10 - Atherosclerotic heart disease of [place] coronary artery without angina pectoris (4) Morbid obesity with BMI of 60.0-69.9, adult Status: Chronic (5) Hypothyroidism (acquired) Status: Chronic (6) BPH (benign prostatic hyperplasia) Status: Chronic Qualifiers: Prostatic enlargement morphology: unspecified morphology Lower urinary tract symptom presence: presence of symptoms unspecified Qualified Code(s): N40.0 - Benign prostatic hyperplasia without lower urinary tract symptoms (7) Hypertension Status: Chronic Qualifiers: Hypertension type: essential hypertension Qualified Code(s): I10 - Essential (primary) hypertension (8) COPD (chronic obstructive pulmonary disease) Status: Chronic Qualifiers: COPD type: unspecified COPD Qualified Code(s): J44.9 - Chronic obstructive pulmonary disease, unspecified (9) Diabetes mellitus Status: Chronic Assessment and plan: continue Accucheck blood glucose monitoring with basal bolus insulin regimen; diabetic diet; Qualifiers: Diabetes mellitus type: type 2 Diabetes mellitus complication status: with kidney complications Diabetes mellitus complication detail: with chronic kidney disease 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 No chest pain, palpitations, urine output improving; - Constitutional Vitals: Temp Pulse Resp BP Pulse Ox 98.2 F 58 16 187/76 96 02/27/17 11:40 02/27/17 11:40 02/27/17 11:40 02/27/17 11:40 02/27/17 11:40 General appearance: Present: A&O X 3, morbidly obese, answers questions appropriately - Respiratory Respiratory exam: Present: rales (faint crackles B/L bases). Absent: accessory muscle use, rhonchi, wheezes - Cardiovascular Cardiovascular exam: Present: RRR, +S1, +S2. Absent: diastolic murmur, gallop, rubs, systolic murmur - GI/Abdominal GI/Abdominal exam: Present: normal bowel sounds, soft (obese), no peritoneal signs. Absent: distended, tenderness - Extremities Exam Extremities exam: Present: full ROM, pedal edema, warm, radial pulses palpable and symetrical. Absent: calf tenderness, cyanotic Internal Medicine: Result - Labs CBC & Chem 7: 02/27/17 03:47 02/27/17 03:47 - ABG Interpretation ABG results: PT/INR, D-dimer PT 15.1 Seconds (9.4-12.1) H 02/22/17 14:39 Consult Discharge Plan - Plan Instructions: Heart Failure (DC), Chronic Obstructive Pulmonary Disease (DC) Referrals: Livia Quiñonez [Primary Care Provider] - 03/04/17 3:15 pm (Please follow up as schedule...) Prescriptions: HydrALAZINE 50 mg PO TID 30 Days Levofloxacin [Levaquin] 750 mg PO DAILY 1 Days
== END 2017-02-27 14:20 | disposition home or self-care (01) | DRG 291 ==
LOC: EMEROO 13:12 → 2ANU 13:12 → SUATTDRO 22:05
PROVIDERS: ADMIT Nurse Practitioner Acute Care; ATTEND Internal Medicine

== ENCOUNTER 2020-02-03 09:02 | Inpatient (IN) ==
[2020-02-03] MEDS ORDERED: *HR* Heparin 10,000 UNIT/10 ML VIAL ONE (09:15)
[2020-02-03] MEDS ORDERED: Heparin 1,000 UNITS/500 mL 500 ML ONE (09:15)
[2020-02-03] MEDS ORDERED: 0.9 % Sodium Chloride 1,000 ML ONE (09:15)
[2020-02-03] MEDS ORDERED: Nitroglycerin 1,000 MCG/10 ML VIAL IV ONE (09:15)
[2020-02-03] MEDS ORDERED: ISOVUE-370 200 ML INFUS..BTL ONE (09:15)
[2020-02-03] MEDS: 0.9 % Sodium Chloride 1,000 ML IVC SCH (09:42)
[2020-02-03] MEDS ORDERED: *HR* FentaNYL (PF) 100 MCG/2 ML VIAL ONE (09:56)
[2020-02-03] MEDS ORDERED: *HR* Midazolam HCl 2 MG/2 ML VIAL ONE (09:56)
[2020-02-03] MEDS ORDERED: *HR* Atropine Sulfate 1 MG/10 ML SYRINGE ONE (10:22)
[2020-02-03] MEDS ORDERED: Tirofiban 12.5 MG/250ML 12.5 MG/250 ML BAG ONE (10:49)
[2020-02-03] MEDS ORDERED: Water for inj. (sterile) 10 ML ONE (11:26)
[2020-02-03] MEDS ORDERED: *HR* Dextrose 50 % in Water (Syg) 50 ML SYRINGE IVP PRN (18:07)
[2020-02-03] MEDS ORDERED: Dextrose Gel 15 GM/37.5 ML TUBE PO PRN ×2 (18:07)
[2020-02-03] MEDS ORDERED: D5% in Water 1,000 ML IVC PRN (18:07)
[2020-02-03] MEDS: Insulin LISPRO 300 UNITS/3 ML VIAL SQ SCH (21:30)
[2020-02-03] MEDS: hydrALAZINE 25 MG TABLET PO SCH (23:23)
[2020-02-04] MEDS: hydrALAZINE 25 MG TABLET PO SCH ×3 (09:25→23:32)
[2020-02-04] MEDS: Aspirin 81 MG TAB.CHEW PO SCH (09:25)
[2020-02-04] MEDS: Insulin LISPRO 300 UNITS/3 ML VIAL SQ SCH ×4 (09:25→20:47)
[2020-02-04] MEDS: 0.9 % Sodium Chloride 1,000 ML IVC SCH ×2 (09:26→23:52)
[2020-02-04 09:30] LABS: Hematocrit 38.1 % (37.5-50.1); Immature Granulocytes % 0.2 % (0-4); Lymphocytes % 15.7 %; Mean Corpuscular HGB Conc 31.5 g/dL (31.6-35.5); Mean Corpuscular Hemoglobin 27.5 pg (28.0-33.3); Mean Corpuscular Volume 87.2 fL (83.0-100.0); Mean Platelet Volume 9.2 fL (9.4-12.4); Platelet Count 184 K/mcL (140-400); Red Blood Count 4.37 M/mcL (4.19-5.50); Red Cell Distribution Width 12.8 % (11.5-14.5); White Blood Count 6.4 K/mcL (4.3-11.1)
[2020-02-04 09:31] LABS: Basophils % 0.3 %; Eosinophils # 0.2 K/mcL (0.0-0.6); Eosinophils % 3.8 %; Monocytes # 0.5 K/mcL (0.0-1.3); Neutrophils # 4.6 K/mcL (1.6-8.9)
[2020-02-04 09:50] LABS: BUN/Creatinine Ratio 23 (6-26); Blood Urea Nitrogen 30 mg/dL (8-23); Calcium 9.2 mg/dL (8.6-10.3); Carbon Dioxide 30 mEq/L (23-29); Chloride 104 mEq/L (98-107); Glucose 106 mg/dL (70-105); Osmolality,Calculated 293 (280-300); Potassium 4.2 mEq/L (3.5-5.1); Sodium 138 mEq/L (136-145); eGFR For African Americans > 60 (> 60); eGFR For Non-African Americans 55 (> 60)
[2020-02-04] MEDS ORDERED: Budesonide/Formoterol 160/4.5 1 PUFF INH IH PRN (12:57)
[2020-02-04] MEDS: amLODIPine 5 MG TABLET PO SCH (14:30)
[2020-02-04] MEDS: GlipiZIDE 5 MG TABLET PO SCH (14:30)
[2020-02-04] MEDS: *HR* Heparin 5,000 UNIT/ML VIAL SQ SCH (17:31)
[2020-02-04] MEDS: Bumetanide 1 MG TABLET PO SCH (19:23)
[2020-02-04] MEDS ORDERED: Melatonin 3 MG TABLET PO PRN (21:00)
[2020-02-05 05:24] LABS: Basophils % 0.3 %; Eosinophils # 0.2 K/mcL (0.0-0.6); Eosinophils % 3.7 %; Hematocrit 37.1 % (37.5-50.1); Hemoglobin 11.8 g/dL (12.9-16.9); Immature Granulocytes % 0.2 % (0-4); Lymphocytes # 1.2 K/mcL (0.6-4.6); Lymphocytes % 17.7 %; Mean Corpuscular HGB Conc 31.8 g/dL (31.6-35.5); Mean Corpuscular Hemoglobin 27.8 pg (28.0-33.3); Mean Corpuscular Volume 87.3 fL (83.0-100.0); Mean Platelet Volume 9.4 fL (9.4-12.4); Monocytes # 0.6 K/mcL (0.0-1.3); Monocytes % 9.4 %; Neutrophils # 4.5 K/mcL (1.6-8.9); Platelet Count 177 K/mcL (140-400); Red Blood Count 4.25 M/mcL (4.19-5.50); Red Cell Distribution Width 12.9 % (11.5-14.5); Segmented Neutrophils % 68.7 %; White Blood Count 6.6 K/mcL (4.3-11.1)
[2020-02-05 05:43] LABS: BUN/Creatinine Ratio 23 (6-26); Blood Urea Nitrogen 33 mg/dL (8-23); Calcium 9.3 mg/dL (8.6-10.3); Carbon Dioxide 28 mEq/L (23-29); Chloride 108 mEq/L (98-107); Glucose 83 mg/dL (70-105); Osmolality,Calculated 284 (280-300); Potassium 4.2 mEq/L (3.5-5.1); Sodium 134 mEq/L (136-145); eGFR For African Americans > 60 (> 60); eGFR For Non-African Americans 50 (> 60)
[2020-02-05] MEDS: *HR* Heparin 5,000 UNIT/ML VIAL SQ SCH ×2 (05:54→17:00)
[2020-02-05] MEDS ORDERED: Insulin DETEMIR 100 UNIT/ML X5UNITS SQ SCH (09:00)
[2020-02-05] MEDS ORDERED: Isosorbide MONOnitrate (24 HR) 60 MG TAB.ER.24H PO SCH (09:00)
[2020-02-05] MEDS ORDERED: FLUoxetine 20 MG CAPSULE PO SCH (09:00)
[2020-02-05] MEDS: GlipiZIDE 5 MG TABLET PO SCH (09:25)
[2020-02-05] MEDS: Aspirin 81 MG TAB.CHEW PO SCH (09:25)
[2020-02-05] MEDS: amLODIPine 5 MG TABLET PO SCH (09:26)
[2020-02-05] MEDS: Insulin LISPRO 300 UNITS/3 ML VIAL SQ SCH ×3 (09:26→16:37)
[2020-02-05] MEDS: hydrALAZINE 25 MG TABLET PO SCH ×3 (09:26→20:03)
[2020-02-05] MEDS: Bumetanide 1 MG TABLET PO SCH ×2 (11:41→16:59)
[2020-02-05] MEDS ORDERED: Budesonide/Formoterol 160/4.5 1 PUFF INH IH PRN (11:52)
[2020-02-05] MEDS ORDERED: Melatonin 3 MG TABLET PO PRN (11:52)
[2020-02-05] MEDS ORDERED: *HR* Dextrose 50 % in Water (Syg) 50 ML SYRINGE IVP PRN (11:52)
[2020-02-05] MEDS ORDERED: D5% in Water 1,000 ML IVC PRN (11:52)
[2020-02-05] MEDS ORDERED: Dextrose Gel 15 GM/37.5 ML TUBE PO PRN ×2 (11:52)
[2020-02-05] MEDS ORDERED: Insulin LISPRO 300 UNITS/3 ML VIAL SQ SCH (21:00)
[2020-02-06] MEDS: *HR* Heparin 5,000 UNIT/ML VIAL SQ SCH (05:22)
[2020-02-06 07:30] VITALS: BP 147/55
[2020-02-06] MEDS: Bumetanide 1 MG TABLET PO SCH (08:58)
[2020-02-06] MEDS: hydrALAZINE 25 MG TABLET PO SCH (08:59)
[2020-02-06] MEDS ORDERED: Aspirin 81 MG TAB.CHEW PO SCH (09:00)
[2020-02-06] MEDS ORDERED: FLUoxetine 20 MG CAPSULE PO SCH (09:00)
[2020-02-06] MEDS ORDERED: GlipiZIDE 5 MG TABLET PO SCH (09:00)
[2020-02-06] MEDS ORDERED: Insulin DETEMIR 100 UNIT/ML X5UNITS SQ SCH (09:00)
[2020-02-06] MEDS ORDERED: Isosorbide MONOnitrate (24 HR) 60 MG TAB.ER.24H PO SCH (09:00)
[2020-02-06] MEDS ORDERED: amLODIPine 5 MG TABLET PO SCH (09:00)
[2020-02-06] MEDS: Insulin LISPRO 300 UNITS/3 ML VIAL SQ SCH (09:42)
== END 2020-02-06 11:57 | disposition home or self-care (01) | DRG 247 ==
LOC: INVDIALAB 09:02 → ICNU 11:40 → 2NENU 02-05 13:58
PROVIDERS: ADMIT Internal Medicine Cardiovascular Disease; ATTEND Internal Medicine Cardiovascular Disease

== ENCOUNTER 2021-01-07 14:14 | Inpatient (IN) ==
[2021-01-07 15:06] LABS: Basophils % 0.2 %; Eosinophils % 0.3 %; Hematocrit 34.3 % (37.5-50.1); Hemoglobin 10.7 g/dL (12.9-16.9); Immature Granulocytes % 0.5 % (0-4); Lymphocytes # 0.7 K/mcL (0.6-4.6); Lymphocytes % 5.1 %; Mean Corpuscular HGB Conc 31.2 g/dL (31.6-35.5); Mean Corpuscular Hemoglobin 26.6 pg (28.0-33.3); Mean Corpuscular Volume 85.1 fL (83.0-100.0); Mean Platelet Volume 9.8 fL (9.4-12.4); Monocytes # 0.7 K/mcL (0.0-1.3); Monocytes % 5.6 %; Neutrophils # 11.6 K/mcL (1.6-8.9); Platelet Count 169 K/mcL (140-400); Red Blood Count 4.03 M/mcL (4.19-5.50); Red Cell Distribution Width 14.8 % (11.5-14.5); Segmented Neutrophils % 88.3 %; White Blood Count 13.1 K/mcL (4.3-11.1)
[2021-01-07 15:25] LABS: Calcium 8.7 mg/dL (8.6-10.3); Potassium 3.8 mEq/L (3.5-5.1)
[2021-01-07] MEDS ORDERED: Budesonide/Formoterol 160/4.5 1 PUFF INH IH PRN (15:55)
[2021-01-07] MEDS ORDERED: hydrALAZINE 25 MG TABLET PO PRN (15:55)
[2021-01-07] MEDS ORDERED: *HR* HYDROcodone/Acet 5/325 mg TABLET PO PRN (16:10)
[2021-01-07] MEDS ORDERED: *HR* Dextrose 50 % in Water (Vial) 50 ML VIAL IVP PRN (16:10)
[2021-01-07] MEDS ORDERED: Ondansetron 4 MG/2 ML VIAL IVP PRN (16:10)
[2021-01-07] MEDS ORDERED: Naloxone 0.4 MG/ML INJ IVP PRN (16:10)
[2021-01-07] MEDS ORDERED: Dextrose Gel 15 GM/37.5 ML TUBE PO PRN (16:10)
[2021-01-07] MEDS ORDERED: Acetaminophen 325 MG TABLET PO PRN (16:10)
[2021-01-07] MEDS ORDERED: D5% in Water 1,000 ML IVC PRN (16:10)
[2021-01-07] MEDS ORDERED: Insulin LISPRO 300 UNITS/3 ML VIAL SUBQ SCH ×2 (16:30→21:00)
[2021-01-07] MEDS ORDERED: CeFAZolin 2 GM/120 ML BAG IVPB SCH (17:00)
[2021-01-07] MEDS: *HR* Heparin 5,000 UNIT/ML VIAL SQ SCH (18:13)
[2021-01-07] MEDS ORDERED: Melatonin 3 MG TABLET PO PRN (21:00)
[2021-01-07] MEDS: Dextrose Gel 15 GM/37.5 ML TUBE PO PRN ×2 (21:21→22:08)
[2021-01-08 01:39] LABS: Basophils % 0.2 %; Eosinophils # 0.2 K/mcL (0.0-0.6); Eosinophils % 1.7 %; Hematocrit 29.7 % (37.5-50.1); Hemoglobin 9.4 g/dL (12.9-16.9); Immature Granulocytes % 0.3 % (0-4); Lymphocytes # 0.8 K/mcL (0.6-4.6); Lymphocytes % 8.5 %; Mean Corpuscular HGB Conc 31.6 g/dL (31.6-35.5); Mean Corpuscular Hemoglobin 26.8 pg (28.0-33.3); Mean Corpuscular Volume 84.6 fL (83.0-100.0); Mean Platelet Volume 9.9 fL (9.4-12.4); Monocytes # 0.6 K/mcL (0.0-1.3); Monocytes % 6.7 %; Neutrophils # 7.8 K/mcL (1.6-8.9); Platelet Count 152 K/mcL (140-400); Red Blood Count 3.51 M/mcL (4.19-5.50); Red Cell Distribution Width 14.6 % (11.5-14.5); Segmented Neutrophils % 82.6 %; White Blood Count 9.4 K/mcL (4.3-11.1)
[2021-01-08 01:57] LABS: Calcium 8.3 mg/dL (8.6-10.3); Potassium 3.2 mEq/L (3.5-5.1)
[2021-01-08] MEDS: CeFAZolin 2 GM/120 ML BAG IVPB SCH ×3 (02:52→17:27)
[2021-01-08] MEDS: *HR* Heparin 5,000 UNIT/ML VIAL SQ SCH ×2 (05:28→17:18)
[2021-01-08] MEDS: Isosorbide MONOnitrate (24 HR) 60 MG TAB.ER.24H PO SCH (08:39)
[2021-01-08] MEDS: amLODIPine 5 MG TABLET PO SCH (08:39)
[2021-01-08] MEDS: FLUoxetine 20 MG CAPSULE PO SCH (08:39)
[2021-01-08] MEDS: Aspirin Enteric Coated 81 MG Tablet PO SCH (08:39)
[2021-01-08] MEDS ORDERED: Insulin DETEMIR 100 UNIT/ML X5UNITS SUBQ SCH (09:00)
[2021-01-08 13:46] LABS: Bilirubin,Urine Negative (Negative); Blood,Urine Negative (Negative); Clarity,Urine Clear (Clear); Color,Urine Light-Yellow (Yellow); Glucose,Urine (UA) Normal (Normal); Ketones,Urine Negative (Negative); Leukocyte Esterase,Urine Negative (Negative); Nitrite,Urine Negative (Negative); PH,Urine 5.5 pH Units (5.0-8.0); Protein,Urine Trace mg/dL (Neg-Trace); Specific Gravity,Urine 1.019 (1.010-1.025); Urobilinogen,Urine Normal (Normal)
[2021-01-08] MEDS ORDERED: Melatonin 3 MG TABLET PO PRN (14:49)
[2021-01-09 01:54] LABS: Basophils % 0.2 %; Eosinophils # 0.3 K/mcL (0.0-0.6); Eosinophils % 5.4 %; Hematocrit 31.8 % (37.5-50.1); Immature Granulocytes % 0.5 % (0-4); Lymphocytes # 0.8 K/mcL (0.6-4.6); Lymphocytes % 12.9 %; Mean Corpuscular HGB Conc 31.4 g/dL (31.6-35.5); Mean Corpuscular Volume 85.9 fL (83.0-100.0); Mean Platelet Volume 10.3 fL (9.4-12.4); Monocytes # 0.6 K/mcL (0.0-1.3); Neutrophils # 4.3 K/mcL (1.6-8.9); Platelet Count 165 K/mcL (140-400); Red Cell Distribution Width 14.5 % (11.5-14.5)
[2021-01-09 02:14] LABS: BUN/Creatinine Ratio 32 (6-26); Blood Urea Nitrogen 44 mg/dL (8-23); Calcium 8.8 mg/dL (8.6-10.3); Carbon Dioxide 27 mEq/L (23-29); Chloride 104 mEq/L (98-107); Glucose 144 mg/dL (70-105); Magnesium 2.3 mg/dL (1.6-2.6); Osmolality,Calculated 302 (280-300); Potassium 3.8 mEq/L (3.5-5.1); Sodium 139 mEq/L (136-145); eGFR For African Americans > 60 (> 60); eGFR For Non-African Americans 51 (> 60)
[2021-01-09] MEDS: CeFAZolin 2 GM/120 ML BAG IVPB SCH ×3 (02:49→17:46)
[2021-01-09] MEDS: *HR* Heparin 5,000 UNIT/ML VIAL SQ SCH ×2 (05:20→18:16)
[2021-01-09] MEDS: Famotidine 20 MG TABLET PO SCH (08:35)
[2021-01-09] MEDS: Aspirin Enteric Coated 81 MG Tablet PO SCH (08:35)
[2021-01-09] MEDS: FLUoxetine 20 MG CAPSULE PO SCH (08:35)
[2021-01-09] MEDS: amLODIPine 5 MG TABLET PO SCH (08:36)
[2021-01-09] MEDS: Isosorbide MONOnitrate (24 HR) 60 MG TAB.ER.24H PO SCH (08:36)
[2021-01-09] MEDS: Bumetanide 1 MG TABLET PO SCH (21:47)
[2021-01-10] MEDS: CeFAZolin 2 GM/120 ML BAG IVPB SCH ×3 (01:48→17:33)
[2021-01-10 05:22] LABS: Basophils % 0.4 %; Eosinophils # 0.4 K/mcL (0.0-0.6); Eosinophils % 6.5 %; Hematocrit 31.4 % (37.5-50.1); Hemoglobin 9.7 g/dL (12.9-16.9); Immature Granulocytes % 0.7 % (0-4); Lymphocytes % 16.8 %; Mean Corpuscular HGB Conc 30.9 g/dL (31.6-35.5); Mean Corpuscular Hemoglobin 26.1 pg (28.0-33.3); Mean Corpuscular Volume 84.4 fL (83.0-100.0); Mean Platelet Volume 9.9 fL (9.4-12.4); Monocytes # 0.5 K/mcL (0.0-1.3); Monocytes % 9.4 %; Neutrophils # 3.7 K/mcL (1.6-8.9); Platelet Count 198 K/mcL (140-400); Red Blood Count 3.72 M/mcL (4.19-5.50); Red Cell Distribution Width 14.2 % (11.5-14.5); Segmented Neutrophils % 66.2 %; White Blood Count 5.7 K/mcL (4.3-11.1)
[2021-01-10 05:39] LABS: BUN/Creatinine Ratio 25 (6-26); Blood Urea Nitrogen 33 mg/dL (8-23); Calcium 8.7 mg/dL (8.6-10.3); Carbon Dioxide 27 mEq/L (23-29); Chloride 105 mEq/L (98-107); Glucose 123 mg/dL (70-105); Osmolality,Calculated 299 (280-300); Potassium 4.1 mEq/L (3.5-5.1); Sodium 140 mEq/L (136-145); eGFR For African Americans > 60 (> 60); eGFR For Non-African Americans 54 (> 60)
[2021-01-10] MEDS: *HR* Heparin 5,000 UNIT/ML VIAL SQ SCH ×2 (06:06→17:33)
[2021-01-10] MEDS: FLUoxetine 20 MG CAPSULE PO SCH (10:14)
[2021-01-10] MEDS: Isosorbide MONOnitrate (24 HR) 60 MG TAB.ER.24H PO SCH (10:14)
[2021-01-10] MEDS: Bumetanide 1 MG TABLET PO SCH ×2 (10:14→20:29)
[2021-01-10] MEDS: amLODIPine 5 MG TABLET PO SCH (10:15)
[2021-01-10] MEDS: Aspirin Enteric Coated 81 MG Tablet PO SCH (10:16)
[2021-01-10] MEDS: Famotidine 20 MG TABLET PO SCH (10:16)
[2021-01-11] MEDS: CeFAZolin 2 GM/120 ML BAG IVPB SCH ×3 (02:08→17:07)
[2021-01-11 03:58] LABS: Basophils % 0.6 %; Eosinophils # 0.4 K/mcL (0.0-0.6); Eosinophils % 6.4 %; Hematocrit 35.6 % (37.5-50.1); Hemoglobin 11.2 g/dL (12.9-16.9); Immature Granulocytes % 0.9 % (0-4); Lymphocytes # 1.3 K/mcL (0.6-4.6); Lymphocytes % 20.3 %; Mean Corpuscular HGB Conc 31.5 g/dL (31.6-35.5); Mean Corpuscular Hemoglobin 26.6 pg (28.0-33.3); Mean Corpuscular Volume 84.6 fL (83.0-100.0); Mean Platelet Volume 10.1 fL (9.4-12.4); Monocytes # 0.5 K/mcL (0.0-1.3); Monocytes % 8.2 %; Neutrophils # 4.2 K/mcL (1.6-8.9); Platelet Count 243 K/mcL (140-400); Red Blood Count 4.21 M/mcL (4.19-5.50); Red Cell Distribution Width 14.2 % (11.5-14.5); Segmented Neutrophils % 63.6 %; White Blood Count 6.6 K/mcL (4.3-11.1)
[2021-01-11 04:15] LABS: Calcium 9.2 mg/dL (8.6-10.3); Potassium 3.8 mEq/L (3.5-5.1)
[2021-01-11] MEDS: *HR* Heparin 5,000 UNIT/ML VIAL SQ SCH ×2 (06:39→17:07)
[2021-01-11] MEDS: Bumetanide 1 MG TABLET PO SCH ×2 (08:54→20:35)
[2021-01-11] MEDS: Aspirin Enteric Coated 81 MG Tablet PO SCH (08:54)
[2021-01-11] MEDS: Isosorbide MONOnitrate (24 HR) 60 MG TAB.ER.24H PO SCH (08:55)
[2021-01-11] MEDS: amLODIPine 5 MG TABLET PO SCH (08:55)
[2021-01-11] MEDS: Famotidine 20 MG TABLET PO SCH (08:56)
[2021-01-11] MEDS: FLUoxetine 20 MG CAPSULE PO SCH (08:56)
[2021-01-12] MEDS: CeFAZolin 2 GM/120 ML BAG IVPB SCH (02:12)
[2021-01-12 03:31] VITALS: BP 124/73
[2021-01-12] MEDS: *HR* Heparin 5,000 UNIT/ML VIAL SQ SCH (06:10)
[2021-01-12] MEDS: FLUoxetine 20 MG CAPSULE PO SCH (09:48)
[2021-01-12] MEDS: Famotidine 20 MG TABLET PO SCH (09:49)
[2021-01-12] MEDS: amLODIPine 5 MG TABLET PO SCH (09:49)
[2021-01-12] MEDS: Aspirin Enteric Coated 81 MG Tablet PO SCH (09:49)
[2021-01-12] MEDS: Bumetanide 1 MG TABLET PO SCH (09:49)
== END 2021-01-12 12:45 | disposition home or self-care (01) | DRG 603 ==
LOC: 3NENU 14:14 → EMEROOARM 14:14 → SUATTDRO 16:38 → 3NENU 17:15
PROVIDERS: ADMIT Internal Medicine; ATTEND Family Medicine

== ENCOUNTER 2022-04-23 14:06 | Inpatient (IN) ==
[2022-04-23 16:32] LABS: Basophils % 0.6 %; Eosinophils # 0.2 K/mcL (0.0-0.6); Eosinophils % 3.4 %; Hematocrit 38.2 % (37.5-50.1); Hemoglobin 11.7 g/dL (12.9-16.9); Immature Granulocytes % 0.2 % (0-4); Lymphocytes # 1.1 K/mcL (0.6-4.6); Lymphocytes % 16.6 %; Mean Corpuscular HGB Conc 30.6 g/dL (31.6-35.5); Mean Platelet Volume 9.3 fL (9.4-12.4); Monocytes # 0.5 K/mcL (0.0-1.3); Monocytes % 8.2 %; Neutrophils # 4.7 K/mcL (1.6-8.9); Platelet Count 215 K/mcL (140-400); Red Blood Count 4.34 M/mcL (4.19-5.50); Red Cell Distribution Width 15.3 % (11.5-14.5); White Blood Count 6.6 K/mcL (4.3-11.1)
[2022-04-23] MEDS ORDERED: Furosemide 40 MG/4 ML VIAL IVP ONE (17:03)
[2022-04-23 17:14] LABS: Troponin I 0.05 ng/mL (< 0.04)
[2022-04-23 17:22] LABS: BUN/Creatinine Ratio 23 (6-26); Blood Urea Nitrogen 25 mg/dL (8-23); Calcium 9.1 mg/dL (8.6-10.3); Carbon Dioxide 31 mEq/L (23-29); Chloride 104 mEq/L (98-107); Glucose 125 mg/dL (70-105); Osmolality,Calculated 298 (280-300); Potassium 4.6 mEq/L (3.5-5.1); Sodium 141 mEq/L (136-145); eGFR For African Americans > 60 (> 60); eGFR For Non-African Americans > 60 (> 60)
[2022-04-23 17:33] LABS: Influenza A PCR Negative (Negative); Influenza B PCR Negative (Negative); Resp. Syncytial Virus PCR Negative (Negative)
[2022-04-23 17:35] LABS: SARS-CoV-2 by PCR (In House) Negative (Negative)
[2022-04-23] MEDS ORDERED: Ondansetron 4 MG/2 ML VIAL IVP PRN (17:52)
[2022-04-23] MEDS ORDERED: Naloxone 0.4 MG/ML INJ IVP PRN (17:52)
[2022-04-23] MEDS ORDERED: Perflutren Lipid Microsphere 1.3 ML in 0.9 % Sodium Chloride 8.7 ML IVP PRN (17:59)
[2022-04-23] MEDS ORDERED: Dextrose Gel 15 GM/37.5 ML TUBE PO PRN ×2 (18:01)
[2022-04-23] MEDS ORDERED: D5% in Water 1,000 ML IVC PRN (18:01)
[2022-04-23] MEDS ORDERED: *HR* Dextrose 50 % in Water (Syg) 50 ML SYRINGE IVP PRN (18:01)
[2022-04-23] MEDS ORDERED: Albuterol 2.5 MG/3 ML NEBULIZER IH PRN (19:18)
[2022-04-23] MEDS ORDERED: Melatonin 3 MG TABLET PO PRN (19:30)
[2022-04-23] MEDS: Budesonide/Formoterol 160/4.5 1 PUFF INH IH SCH (20:34)
[2022-04-23] MEDS ORDERED: *HR* Labetalol 20 MG/4 ML SYRINGE IVP ONE (20:41)
[2022-04-23] MEDS ORDERED: Furosemide 40 MG/4 ML VIAL IVP SCH (21:00)
[2022-04-23] MEDS: *HR* Heparin 5,000 UNIT/ML VIAL SQ SCH (21:36)
[2022-04-23] MEDS: Insulin LISPRO 300 UNITS/3 ML VIAL SUBQ SCH (21:37)
[2022-04-24] MEDS: *HR* Heparin 5,000 UNIT/ML VIAL SQ SCH ×3 (05:40→21:39)
[2022-04-24 06:00] LABS: Basophils % 0.5 %; Eosinophils # 0.2 K/mcL (0.0-0.6); Eosinophils % 3.7 %; Hematocrit 36.4 % (37.5-50.1); Hemoglobin 11.3 g/dL (12.9-16.9); Immature Granulocytes % 0.3 % (0-4); Lymphocytes # 1.2 K/mcL (0.6-4.6); Lymphocytes % 18.5 %; Mean Corpuscular Hemoglobin 27.4 pg (28.0-33.3); Mean Corpuscular Volume 88.3 fL (83.0-100.0); Mean Platelet Volume 9.5 fL (9.4-12.4); Monocytes # 0.6 K/mcL (0.0-1.3); Monocytes % 8.8 %; Neutrophils # 4.4 K/mcL (1.6-8.9); Platelet Count 207 K/mcL (140-400); Red Blood Count 4.12 M/mcL (4.19-5.50); Red Cell Distribution Width 14.9 % (11.5-14.5); Segmented Neutrophils % 68.2 %; White Blood Count 6.5 K/mcL (4.3-11.1)
[2022-04-24 06:26] LABS: Troponin I 0.05 ng/mL (< 0.04)
[2022-04-24 06:47] LABS: BUN/Creatinine Ratio 23 (6-26); Blood Urea Nitrogen 27 mg/dL (8-23); Calcium 8.8 mg/dL (8.6-10.3); Carbon Dioxide 29 mEq/L (23-29); Chloride 102 mEq/L (98-107); Glucose 101 mg/dL (70-105); Magnesium 2.2 mg/dL (1.6-2.6); Osmolality,Calculated 295 (280-300); Potassium 4.3 mEq/L (3.5-5.1); Sodium 140 mEq/L (136-145); eGFR For African Americans > 60 (> 60); eGFR For Non-African Americans > 60 (> 60)
[2022-04-24] MEDS: Budesonide/Formoterol 160/4.5 1 PUFF INH IH SCH ×2 (07:57→22:47)
[2022-04-24] MEDS: Insulin LISPRO 300 UNITS/3 ML VIAL SUBQ SCH ×4 (08:33→22:19)
[2022-04-24] MEDS: Multivit/Ca/Min/Fe/FA 1 TAB TABLET PO SCH (08:40)
[2022-04-24] MEDS: Aspirin Enteric Coated 81 MG Tablet PO SCH (08:40)
[2022-04-24] MEDS: Cholecalciferol (D-3) 1,000 UNIT (25MCG) TABLET PO SCH (08:40)
[2022-04-24] MEDS: hydrALAZINE 25 MG TABLET PO SCH ×3 (08:40→16:39)
[2022-04-24] MEDS: Isosorbide MONOnitrate (24 HR) 60 MG TAB.ER.24H PO SCH (08:41)
[2022-04-24] MEDS: Metoprolol XL (24 HR) Succ 25 MG TAB.ER.24H PO SCH (08:41)
[2022-04-24] MEDS: Bumetanide 1 MG/4 ML VIAL IVP SCH ×2 (08:41→16:39)
[2022-04-24] MEDS: Famotidine 20 MG TABLET PO SCH (08:41)
[2022-04-24] MEDS: FLUoxetine 20 MG CAPSULE PO SCH (08:41)
[2022-04-24] MEDS: Tolterodine LA (24 HR) 4 MG CAP.ER.24H PO SCH (08:46)
[2022-04-25] MEDS: hydrALAZINE 25 MG TABLET PO SCH ×4 (01:32→21:11)
[2022-04-25] MEDS: *HR* Heparin 5,000 UNIT/ML VIAL SQ SCH ×3 (06:35→21:12)
[2022-04-25 06:36] LABS: BUN/Creatinine Ratio 25 (6-26); Blood Urea Nitrogen 35 mg/dL (8-23); Calcium 8.6 mg/dL (8.6-10.3); Carbon Dioxide 32 mEq/L (23-29); Chloride 103 mEq/L (98-107); Glucose 101 mg/dL (70-105); Osmolality,Calculated 300 (280-300); Potassium 4.2 mEq/L (3.5-5.1); Sodium 141 mEq/L (136-145); eGFR For African Americans > 60 (> 60); eGFR For Non-African Americans 50 (> 60)
[2022-04-25 06:40] LABS: Basophils % 0.5 %; Eosinophils # 0.3 K/mcL (0.0-0.6); Eosinophils % 4.4 %; Hematocrit 33.8 % (37.5-50.1); Hemoglobin 10.4 g/dL (12.9-16.9); Immature Granulocytes % 0.4 % (0-4); Lymphocytes # 1.3 K/mcL (0.6-4.6); Lymphocytes % 23.5 %; Mean Corpuscular HGB Conc 30.8 g/dL (31.6-35.5); Mean Corpuscular Hemoglobin 26.7 pg (28.0-33.3); Mean Corpuscular Volume 86.7 fL (83.0-100.0); Mean Platelet Volume 9.6 fL (9.4-12.4); Monocytes # 0.6 K/mcL (0.0-1.3); Monocytes % 10.4 %; Neutrophils # 3.5 K/mcL (1.6-8.9); Platelet Count 214 K/mcL (140-400); Red Cell Distribution Width 14.8 % (11.5-14.5); Segmented Neutrophils % 60.8 %; White Blood Count 5.7 K/mcL (4.3-11.1)
[2022-04-25] MEDS: Budesonide/Formoterol 160/4.5 1 PUFF INH IH SCH ×2 (07:38→21:03)
[2022-04-25] MEDS: Insulin LISPRO 300 UNITS/3 ML VIAL SUBQ SCH ×4 (07:52→21:05)
[2022-04-25] MEDS: FLUoxetine 20 MG CAPSULE PO SCH (08:37)
[2022-04-25] MEDS: Cholecalciferol (D-3) 1,000 UNIT (25MCG) TABLET PO SCH (08:37)
[2022-04-25] MEDS: Bumetanide 1 MG/4 ML VIAL IVP SCH ×2 (08:37→16:40)
[2022-04-25] MEDS: Isosorbide MONOnitrate (24 HR) 60 MG TAB.ER.24H PO SCH (08:37)
[2022-04-25] MEDS: Famotidine 20 MG TABLET PO SCH (08:37)
[2022-04-25] MEDS: Aspirin Enteric Coated 81 MG Tablet PO SCH (08:37)
[2022-04-25] MEDS: Multivit/Ca/Min/Fe/FA 1 TAB TABLET PO SCH (08:38)
[2022-04-25] MEDS: Metoprolol XL (24 HR) Succ 25 MG TAB.ER.24H PO SCH (08:38)
[2022-04-25] MEDS: Tolterodine LA (24 HR) 4 MG CAP.ER.24H PO SCH (08:43)
[2022-04-26] MEDS: Budesonide/Formoterol 160/4.5 1 PUFF INH IH SCH (07:37)
[2022-04-26 07:40] VITALS: O2SAT 97
[2022-04-26] MEDS: Insulin LISPRO 300 UNITS/3 ML VIAL SUBQ SCH ×2 (08:10→12:10)
[2022-04-26] MEDS: Aspirin Enteric Coated 81 MG Tablet PO SCH (09:18)
[2022-04-26] MEDS: Famotidine 20 MG TABLET PO SCH (09:19)
[2022-04-26] MEDS: Isosorbide MONOnitrate (24 HR) 60 MG TAB.ER.24H PO SCH (09:19)
[2022-04-26] MEDS: Cholecalciferol (D-3) 1,000 UNIT (25MCG) TABLET PO SCH (09:19)
[2022-04-26] MEDS: Bumetanide 1 MG/4 ML VIAL IVP SCH (09:19)
[2022-04-26] MEDS: hydrALAZINE 25 MG TABLET PO SCH (09:19)
[2022-04-26] MEDS: Multivit/Ca/Min/Fe/FA 1 TAB TABLET PO SCH (09:19)
[2022-04-26] MEDS: FLUoxetine 20 MG CAPSULE PO SCH (09:19)
[2022-04-26] MEDS: Tolterodine LA (24 HR) 4 MG CAP.ER.24H PO SCH (09:19)
[2022-04-26] MEDS: *HR* Heparin 5,000 UNIT/ML VIAL SQ SCH (09:20)
[2022-04-26] MEDS: Metoprolol XL (24 HR) Succ 25 MG TAB.ER.24H PO SCH (09:20)
[2022-04-26 09:43] LABS: BUN/Creatinine Ratio 25 (6-26); Blood Urea Nitrogen 30 mg/dL (8-23); Calcium 8.8 mg/dL (8.6-10.3); Carbon Dioxide 30 mEq/L (23-29); Chloride 106 mEq/L (98-107); Glucose 143 mg/dL (70-105); Osmolality,Calculated 305 (280-300); Sodium 143 mEq/L (136-145); eGFR For African Americans > 60 (> 60); eGFR For Non-African Americans 59 (> 60)
[2022-04-26 11:49] VITALS: BP 156/68; PULSE 51; TEMP 97.7
== END 2022-04-26 13:30 | disposition home or self-care (01) | DRG 280 ==
LOC: EMEROOARM 14:06 → 2ANU 14:06 → SUATTDRO 17:53 → 2ANU 18:50
PROVIDERS: ADMIT Internal Medicine; ATTEND Internal Medicine